=== PATIENT | male | born 1965 | race Caucasian/White ===

== ENCOUNTER 2024-09-17 14:59 | Inpatient (IN) | payer MEDICARE, SELFPAY ==
[2024-09-17] VITALS (31 sets, daily range): BP systolic 87–126; BP diastolic 51–82; PULSE 114–131; RESP 20–39; TEMP 36.6–37.1; O2SAT 95–100
--- NOTE | ~2024-09-17 | XR_ITS ---
XR chest port-a-cath/central Ordering provider: Jass Mercedes MD History: 59 years Male with . CENTRAL LINE PLACEMENT . Comparison: September 17, 2024 at 3:37 PM. FINDINGS/impression: Left Central line is seen with the tip overlying the superior vena cava. Other appearances are unchan ged. Reviewed, dictated and finalized at location A.
--- NOTE | ~2024-09-17 | CT_ITS ---
CTA chest PE abdomen pel Ordering provider: Jass Mercedes MD History: . syncope, elevated trop, anemia . Comparison: None. Technique: CT angiogram chest was performed following timed intravenous injection of contrast. Thin s lice axial images and reformatted coronal images were obtained. Three dimensional reformatted images of the chest were also obtained using a [email or web address] workstation. Also, CT of the abdomen and pelvis was pe rformed with IV contrast. . Automated exposure control and iterative reconstruction technique were e mployed. The dose-length product was 1735.41 mGy-cm. 100 and ML Omnipaque 350 was given IV. FINDINGS: CHEST: --PULMONARY ARTERIES: No pulmonary embolus. --VISUALIZED THORACIC INLET: Normal. --MEDIASTINUM: Aorta/coronary arteries: The thoracic aorta is normal. Heart/other: The heart is not enlarged. Lymph nodes: No mediastinal or hilar adenopathy. --LUNGS: Dependent atelectatic changes. No pulmonary nodules or masses. No infiltrates or effusions. No pneumothorax. --MUSCULOSKELETAL: Bones: Age appropriate degenerative changes of the spine. Superficial soft tissues: The superficial soft tissues are normal. ABDOMEN/PELVIS: --MUSCULOSKELETAL: Superficial soft tissues: Bilateral fat containing inguinal hernias. The superficial soft tissues are normal. Bones: Age appropriate degenerative changes of the spine. Bilateral sacroiliacs. Levoscoliosis. --UPPER ABDOMINAL ORGANS: Liver: Tiny hypodensity seen in the liver segment #6 most likely tiny cysts. Follow-up advised. Gallbladder: Normal. Spleen: Normal. Stomach/duodenum: Normal. Pancreas: Normal. Adrenals: Normal. Kidneys: Small hypodensity in the right kidney lower pole which may be a stone or early contrast excr etion. --PELVIC ORGANS: The bladder shows thickened wall with surrounding fat stranding. Evaluation for cyst itis advised.. No bladder stones. --BOWEL AND MESENTERY: Colon: No evidence of diverticulitis.. Normal appendix. Small Bowel: Normal. No obstruction. Peritoneum/mesentery: No free air or free fluid. No mesenteric lymphadenopathy. --RETROPERITONEUM: Mild atheromatous disease of the abdominal aorta. No retroperitoneal lymphadenop athy. IMPRESSION: CHEST: 1. No pulmonary embolism. 2. No acute cardiopulmonary pathology. ABDOMEN/PELVIS: 1. No evidence of appendicitis, diverticulitis or intestinal obstruction. 2. Possible right kidney lower pole a stone versus early contrast excretion. Follow-up advised. 3. Slightly thickened wall of the urinary bladder with surrounding fat stranding suggestive of cysti tis. 4. Tiny hypodensity in the liver most likely tiny cysts. 5. Bilateral fat containing inguinal hernias. Reviewed, dictated and finalized at location A. IMPRESSION: CHEST: 1. No pulmonary embolism. 2. No acute cardiopulmonary pathology. ABDOMEN/PELVIS: 1. No evidence of appendicitis, diverticulitis or intestinal obstruction. 2. Possible right kidney lower pole a stone versus early contrast excretion. F ollow-up advised. 3. Slightly thickened wall of the urinary bladder with surrounding fat strandi ng suggestive of cystitis. 4. Tiny hypodensity in the liver most likely tiny cysts. 5. Bilateral fat containing inguinal hernias.
--- NOTE | ~2024-09-17 | XR_ITS ---
XR chest 1V portable Ordering provider: Jass Mercedes MD History: 59 years Male with . SYNCOPE . Comparison: None. FINDINGS: MEDIASTINUM: The cardiac silhouette is slightly enlarged. LUNGS: No infiltrates, effusions or pneumothorax. OTHER: No free air under the diaphragm. IMPRESSION: No acute cardiopulmonary pathology. Reviewed, dictated and finalized at location A.
--- NOTE | ~2024-09-17 | CT_ITS ---
CT brain wo con Ordering provider: Jass Mercedes MD History: 59 years Male with . syncope . Comparison: None. Technique: CT of the head without contrast. Radiation reduction technique utilized.The dose-length pr oduct was 1059.33 mGy-cm. FINDINGS: BRAIN PARENCHYMA AND CSF SPACES: Mild leukoaraiosis and diffuse cortical atrophy. Mild atheromatous d isease. Dilated ventricles is noted.. Dilatation is not compatible with the brain atrophy. Normal pre ssure hydrocephalus should be considered. No midline shift, mass effect or hemorrhage. The brain par enchyma and CSF spaces are otherwise normal. VISUALIZED PARANASAL SINUSES: Well aerated. MASTOIDS: Well aerated. BONES: The bones appear intact. SOFT TISSUES: Visualized nasopharynx is normal. Superficial soft tissues are normal. IMPRESSION: No acute intracranial findings. Reviewed, dictated and finalized at location A.
--- NOTE | 2024-09-17 15:13 | ECG_ITS ---
Test Date: 2024-09-17 15:05:50 Measurements Intervals [place] Rate: 117 P: 59 CO: 148 QRS: -4 QRSD: 85 T: 20 QT: 349 QTc: 488 Interpretive Statements SINUS TACHYCARDIA WITH OCCASIONAL SUPRAVENTRICULAR PREMATURE COMPLEXES ST DEVIATION AND MODERATE T-WAVE ABNORMALITY, CONSIDER ANTEROLATERAL ISCHEMIA AND INFERIOR ISCHEMIA [-0.1+ mV T-WAVE IN V3-V6] ABNORMAL ECG No previous ECG available for comparison Electronically Signed On 09-18-2024 09:53:01 CDT by Migue Badillo M.D.
[2024-09-17 15:27] LABS: Basophils Percent Auto 0.8 % (0.2-1.2); Eosinophils Percent Auto 0.5 % (0-4.4); Hematocrit 23.6 % (42.0-52.0); Hemoglobin 7.4 g/dL (14.0-18.0); Immature Granulocyte Absolute 0.02 K/mm3 (0.00-0.031); Immature Granulocyte Percent A 0.5 % (0-0.5); Lymphocytes Absolute Auto 0.32 K/mm3 (0.9-3.2); Lymphocytes Percent Auto 8.4 % (18.3-44.2); Mean Corpuscular HGB Conc 31.4 g/dl (32-36); Mean Corpuscular Hemoglobin 28.2 pg (26-34); Mean Corpuscular Volume 90.1 fl (80-100); Mean Platelet Volume 8.9 fl (7.4-10.4); Monocytes Absolute Auto 0.1 K/mm3 (0.1-0.6); Monocytes Percent Auto 2.4 % (2.6-8.5); Neutrophils Absolute Auto 3.3 K/mm3 (1.3-6.7); Neutrophils Percent Auto 87.4 % (45.5-73.1); Platelet Count Result 414 k/mm3 (150-375); Red Blood Count 2.62 M/mm3 (4.6-6.20); White Blood Count 3.8 K/mm3 (4.5-10.0)
--- OUTSIDE RECORDS SUMMARY | 2024-09-17 15:29 | XMS_ITS | CONTINUITY OF CARE DOCUMENT ---
Author Name ludmila keys Address Unknown Organization [facility] Address [address] [place] [address] Phone [phone] Care Team Providers Care Perioperative Manager Name Role Phone Miki GALAN, Renay Unavailable [phone] THONY GALAN, DELLA Unavailable INSURANCE PROVIDERS Payer name Policy type / Coverage type [place] red republican ID [id number] [employer] Medicare [id number]
--- OUTSIDE RECORDS SUMMARY | 2024-09-17 15:29 | XMS_ITS | Data Portability ---
Author Organization [facility] Address [address] [place] [address] Assessment No assessment recorded. Plan of Treatment Reminders Order Date Submit Date Provider Last Modified By Organization Details Last Modified Time Details Appointments None recorded. Lab None recorded. Referral audiologis t referral - please call patient to schedule appt. thank you 2016 [email or web address], [address], 7 11:22:09 laryngolog y referral - Please call patient to schedule 2015 016 [email or web address] [facility] [address] [place] [address], [address], 7 09:13:30 Procedures None recorded. Surgeries None recorded. Imaging None recorded. Medication Orders amlodipine 10 mg tablet 2016 017 [facility] [id number], [address], 7 16:56:00 lisinopril 10 mg tablet 2016 017 [facility] [address], [address], 7 16:56:00 lisinopril 10 mg tablet 2016 017 [facility] [address], [address], 7 18:08:31 amlodipine 10 mg tablet 04/10/ 2017 04/10/2 017 [facility] [address] In [facility], [address] [place] [address], [address], 7 18:08:30 amlodipine 10 mg tablet 2015 016 [facility] [address], [address], 6 15:32:04 lisinopril 10 mg tablet 2015 016 [facility] [address], [address], 6 15:32:05 amlodipine 10 mg tablet 2015 016 [facility] [address] In [facility], [address] [place] [address], [address], 6 14:59:37 lisinopril 10 mg tablet 2015 016 [facility] [address], [address], 6 14:59:38 Patient TargetsNo targets recorded. Patient Instructions Encounter Date Encounter Id Patient Instructions Last Modified By Organization Details Last Modified Time 09/29/2015 [id number] hearing loss: care instructions ya Not available 09/29/2015 15:39:31 He will have regular F/U visit with neurologist for hia MS. sieh Not available 09/29/2015 14:59:08 03/29/2016 [id number] hearing loss: care instructions [email or web address] Not available 04/25/2016 12:53:32 09/30/2016 [id number] hearing loss: care instructions sieh Not available 09/30/2016 18:08:34 02/27/2017 [id number] learning about high blood pressure [email or web address] Not available 02/28/2017 10:09:04 05/27/2017 [id number] hearing loss: care instructions [email or web address] Not available 05/27/2017 17:34:24 Reason for Referral Laryngology Referral for Exa cerbation of multiple sclerosis Please call patient to schedule Referring Physician: Kenia Jara, Internal Medicine, Encounter Date: 09/29/2015 Sales Lead Referral for Hea ring disorder please call patient to schedule appt. thank you Referring Physician: Kenia Jara, Internal Medicine, Encounter Date: 02/27/2017 Problems Name Problem SNOMED Code Status Onset Date Resolution Date Notes Provider Name and Address Organization Details Recorded Time Hyperten sive disorder 49216918 Active Kenia Jara MD Attn: Accountin g,[address] [facility], [place], [address], [place] [facility] 6 15:31:58 Exacerba tion of multiple sclerosi s 362357267 Completed 09/30/2016 Removal Reason: Missed diagnosis in the past. Kenia Jara MD Attn: Accountin g,[address] [facility], [place], [address], [place] [facility] 7 18:06:16 Hearing loss 37385747 Active Kenia Jara MD Attn: Accountin g,[address] [facility], [place], [address], [place] [facility] 6 15:31:58 Hydrocep halus 231141283 Active Kenia Jara MD Attn: Accountin g,[address] [facility], [place], [address], [place] [facility] 6 15:31:58 Problem Notes None recorded. Medical Equipment None Reported. Allergies Allergen ID Allergen Name Allergen Category Reaction Reaction Severity Criticality Documentation Date Start Date Code Code System Note Provider Name and Address Organization Details Recorded Time 74375 zinc environme nt,medica tion Not available Not available Not available 09/29/2015 85322 RxNorm Not Available Not Available Not Available Medications Name Sig Start Date Stop Date Status Note LastModified by Organization Details LastModified Time neomycin-po lymyxin-hyd rocort 3.5 mg/mL-10,00 0 unit/mL-1 % ear solution 05/27 completed Not Available Not Available Not Available amlodipine 10 mg tablet TAKE ONE TABLET BY MOUTH ONCE DAILY active Not Available Not Available No t Available cephalexin 500 mg capsule 09/30 completed Not Available Not Available Not Available lisinopril 10 mg tablet TAKE ONE TABLET BY MOUTH ONCE DAILY DIRECTED active Not Available Not Available No t Available neomycin-po lymyxin-hyd rocort 3.5 mg-10,000 unit/mL-1 % ear drops,susp 05/27 completed Not Available Not Available Not Available Vitals Date Recorded Body height Body mass index (BMI) Body weight Body temperature Oxygen saturation Oxygen saturation in Arterial blood by Pulse oximetry Heart rate Systolic blood pressure Diastolic blood pressure Provider Name and Address Organization Details Last Updated DateTime 7 170.18 cm 42.9 kg/m2 857996. 31 g 97.7 [degF] 98 % 98 % 98 /min 114 mm[Hg] 70 mm[Hg] Curt Chavarria MA [facility] 7 16:29:45 Date Recorded Body temperature Body height Body weight Respiratory rate Heart rate Body mass index (BMI) Systolic blood pressure Diastolic blood pressure Provider Name and Address Organization Details Last Updated DateTime 6 98.7 [degF] 170.18 cm 727200. 15543 g 22 /min 90 /min 40.3 kg/m2 110 mm[Hg] 74 mm[Hg] September Niki [facility] 6 14:28:19 Date Recorded Body mass index (BMI) Body weight Oxygen saturation Oxygen saturation in Arterial blood by Pulse oximetry Body temperature Heart rate Body height Systolic blood pressure Diastolic blood pressure Provider Name and Address Organization Details Last Updated DateTime 6 42.9 kg/m2 125750. 850817 g 99 % 99 % 98.1 [degF] 107 /min 170.18 cm 114 mm[Hg] 82 mm[Hg] Curt Chavarria MA [facility] 6 15:12:01 Date Recorded Body height Body weight Body mass index (BMI) Body temperature Oxygen saturation Oxygen saturation in Arterial blood by Pulse oximetry Heart rate Systolic blood pressure Diastolic blood pressure Provider Name and Address Organization Details Last Updated DateTime 7 170.18 cm 532340. 68 g 43.5 kg/m2 97.8 [degF] 99 % 99 % 91 /min 114 mm[Hg] 72 mm[Hg] Curt Chavarria MA [facility] 7 17:56:58 Date Recorded Body height Body mass index (BMI) Body weight Heart rate Body temperature Oxygen saturation Oxygen saturation in Arterial blood by Pulse oximetry Systolic blood pressure Diastolic blood pressure Provider Name and Address Organization Details Last Updated DateTime 7 170.18 cm 42.3 kg/m2 822855. 94 g 88 /min 97.7 [degF] 100 % 100 % 116 mm[Hg] 70 mm[Hg] Felipa Ugalde YONI [facility] 7 15:16:37 Social History Question Answer Notes LastModified by Organizat ion Details LastModified Time Tobacco Smoking Status Former Smoker September NikiYONI, [facility] 09/29/2015 14:28:18 What Is Your Level Of Alcohol Consumption? None Information not available 09/29/2015 What Is Your Level Of Caffeine Consumption? None Information not available 09/29/2015 How Much Tobacco Do You Chew? None Information not available 09/29/2015 What Was The Date Of Your Most Recent Tobacco Screening? 02/27/2017 Information n ot available 01/14/2019 How Much Tobacco Do You Smoke? No Information not available 09/29/2015 Sex: Unknown Functional Status None recorded. Mental Status None recorded. Family History Relationship Description Onset Age of this Age Resolved Age Notes LastModified by Organization Details LastModified Time Mother Transplantat ion of liver asavala Not available 01/2016 14:28:19 Medical History Condition Response Coronary Artery Disease N Other N Atrial Fibrillation N High Blood Pressure N Kidney or Bladder Problems N Thyroid Problems N GI Problems N Depression N COPD N Blood Clots N Skin Problems N Anemia N Heart Attack (ND) N Anxiety Disorder N Diabetes N Muscle, Joint, or Bone Problems N Seizures/Epilepsy N Acid Reflux (GERD) N Cancer N Stroke N Asthma N Allergies N High Cholesterol N Hepatitis N Liver Disease N Headaches N Heart Failure N Osteoporosis N Immunizations Vaccine Type Date Status Note Provider Nam e and Address Organization Details Recorded Time Influenza, split virus, quadrivalent, preservative 7 completed Not Available [facility] 07/10/2019 02:33:58 Past Encounters Encounter ID Performer Location Encounter Start Date Encounter Closed Date Diagnosis/Indication Diagnosis SNOMED-CT Code Diagnosis ICD10 Code Diagnosis Note [id number] MD Solo Valiente (Adult Med) [address] [place] [address] 0 09/29/2015 14:05:00 09/29/2015 14:53:38 Hypertensive disorder 52726246 I10 Exacerbati on of multiple sclerosis 525817303 G35 Hearing loss 98175700 H9 1.93 [id number] Pao Garduno Solo (Adult Med) [address] [place] [address] 0 03/29/2016 14:57:21 03/29/2016 15:34:05 Hearing loss 84480422 H91.93 Hypertensive disorder 38 458946 I10 Hydrocephalus 225700081 G91.9 [id number] MD Solo Valiente (Adult Med) [address] [place] [address] 0 09/30/2016 16:10:41 10/01/2016 10:49:35 Hydrocephalus 131615367 G91.9 Stable. Hypertensive disorder 38 808657 I10 Low salt diet. Hearing loss 14857754 H9 1.93 Right ear hearing loss, stable, no need for hearing aid as he was told in the past. [id number] MD Solo Valiente (Adult Med) [address] [place] [address] 0 02/27/2017 15:00:27 02/27/2017 15:47:36 Essential hypertension 44589923 I10 Well controlled , to continue same medication s: amlodipine 10 mg/day and lisinopril 10 mg. Will get flu shot today. Lo salt diet. Hearing disorder 8067298 05 H91.91 Especially on the right side. He was born prematuall y. He had seen ENT Dr. Elam, but no heaing aids, he wants second opinion. [id number] MD Solo Valiente (Adult Med) [address] [place] [phone] 05/27/2017 16:09:56 05/27/2017 16:59:04 Hearing loss 55330126 H91.93 Right ear hearing loss, stable, no need for hearing aid as he was told in the past. Hydrocephalus 778892938 G91.9 Stable. Has been evaluated bt neurologis t/neurosur jelly, and was told no interventi on will benift hin and no difference in out outcome as hr understood . Hypertensive disorder 38 698512 I10 Low salt diet. Health Concerns Section Related Observation LastModified by Organization Detai ls LastModified Time None Recorded Concern Status LastModified by Organization Details LastModified Time None Recorded Advance Directives Directive None Recorded Payers Encounter Date Sequence Insurance Name Policy Number Policy Ward Covered Member ID Ward Member ID Guarantor Name 09/29/2015 1 [facility] (MEDICAID HM) [id number] [facility] [id number] [facility] 03/29/2016 1 [facility] (MEDICAID HMO) [id number] [place] [id number] [place] 09/30/2016 1 [facility] (MEDICAID HMO) [id number] [place] [id number] [place] 02/27/2017 1 [facility] (MEDICAID HMO) [id number] [place] [id number] [place] 05/27/2017 1 [facility] (MEDICAID HMO) [id number] [place] [id number] [place] Notes Date Note Type Note Provider Name and Address Organization Details Recorded Time 09/29/2015 text/html 1. First encount er. 2. hypertension. 3. Recurrent MS. Mother is here, had been treated at [facility], also has been evaluted byneurologist Dr. Oscar Mcghee recently.. Kenia Jara MD Attn: [address] [place], [address], [facility] 09/29/2015 14:59:35 03/29/2016 text/html 1. F/U visit. 2. RIGHT EAR HEARING LOSS, HAD SEEN ENT SPECIALIST DR. PHILLIPS BUT NOT WORTHY TO PROSUE THE HEARING AID. 3. HROCEPHALUS, BUT NO OBVIOUS BENEFIT FOR SHUNT ACCORDING TO THE NEUROSURGEON'S ADVICES. 3. BP F/U. HE GOT HIS ANNUL FLU SHOT AT HOSPITAL RECENTLY. ALLERGIC TO ZINC. NOSPECIAL COMPLAINTS OTHERWISW. Kenia Jara MD Attn: [address]ing[address] [place], [address], [facility] 03/29/2016 15:32:00 02/27/2017 text/html BP ia well controlled, has enough medications , allergic to Zinc, not a smoker, nor a alcohol drinker. Kenia Jara MD Attn: Accounting[address] [facility], [place], [address], [facility] 02/27/2017 15:38:11 05/27/2017 text/html F/U , just got refills of medications., allergic to Zinc, no special complaints. Kenia Jara MD Attn: [address]ing[address] [facility], [place], [address], [facility] 05/27/2017 16:56:03
[2024-09-17 15:38] LABS: Alanine Aminotransferase 24 U/L (6-50); Albumin Level 3.4 g/dL (3.5-5.1); Alkaline Phosphatase 95 U/L (38-126); Anion Gap 15 mmol/L (4-12); Aspartate Amino Transferase 50 U/L (17-59); Bilirubin,Total 2.9 mg/dL (0.2-1.3); Blood Urea Nitrogen 22 mg/dL (9-20); Calcium 7.9 mg/dL (8.4-10.2); Carbon Dioxide 18 mmol/L (22-30); Chloride 97 mmol/L (98-107); Estimated CRCL calculation 80 ml/min; Estimated Glomerular Filt Rate > 60; Glucose 149 mg/dL (65-110); Lipase 101 U/L (23-300); Potassium 3.7 mmol/L (3.4-5.0); Sodium 130 mmol/L (137-145)
[2024-09-17 15:39] LABS: INR 1.5; Prothrombin Time 18.5 Seconds (11.1-14.7)
[2024-09-17 15:40] LABS: Partial Thromboplastin Time 36.8 Seconds (22.3-36.8)
[2024-09-17 15:55] LABS: Troponin I 0.175 ng/mL (0.000-0.034)
--- NOTE | 2024-09-17 16:08 | ED_ITS ---
HPI - Syncope General Chief Complaint: Syncope Stated Complaint: syncope Time Seen by Provider: 09/17/24 15:07 History of Present Illness HPI narrative: 59-year-old male presenting from [facility] where he resides for chronic debility. He has a history of ulcerative colitis on mesalamine and hydrocephalus. Patient presents the emergency department today after a syncopal event at the facility during rehab session. No fall or head trauma is noted. Low blood pressure readings reported by [facility] staff as well as cold clammy skin and diaphoresis. Patient presents to the emergency department currently awake alert oriented, states the has no complaints denies any headache, vision changes, jaw pain or back pain. No chest pain or shortness of breath. He states he can walk at baseline which is why his at that facility. Denies taking any blood thinners and does not have any EMR that shows any blood thinners. No evidence of trauma. No cardiac history to his knowledge. Patient is a difficult historian which limits history taking. Related Data Allergies Allergy/AdvReac Type Severity Reaction Status Date / Time zinc Allergy Unknown UNKNOWN Verified 10/12/15 13:42 Review of Systems 2 Review of Systems: As reviewed above in HPI Exam 2 Narrative: GENERAL: Chronically ill-appearing, disheveled, not any acute distress HEAD: [Normocephalic, atraumatic.] EYES: [PERRLA and EOMI.] ENT: Nares clear, no rhinorrhea or epistaxis. Mucous membranes moist. NECK: Supple. CHEST: Some tachypnea but clear breath sounds bilaterally, no respiratory distress otherwise HEART: Tachycardic rate, regular rhythm. No murmur heard. [Normal peripheral pulses.] ABDOMEN: [Soft, nondistended], [nontender], [No rigidity or guarding] EXTREMITIES: Normal range of motion. [No edema.] SKIN: Warm, dry, no rash. NEURO: [No focal deficits]. Alert and oriented [x3.] PSYCH: [Normal mood and affect.] Course Vital Signs Vital signs: Vital Signs Temperature 36.6 C 09/17/24 14:59 Pulse Rate 114 H 09/17/24 14:59 Respiratory Rate 28 H 09/17/24 14:59 Blood Pressure 126/66 09/17/24 14:59 Pulse Oximetry 100 09/17/24 14:59 Oxygen Delivery Room Air 09/17/24 14:59 Temperature 36.6 C 09/17/24 14:59 Pulse Rate 126 H 09/17/24 18:30 Respiratory Rate 26 H 09/17/24 18:30 Blood Pressure 123/64 09/17/24 18:30 Pulse Oximetry 100 09/17/24 18:30 Oxygen Delivery Room Air 09/17/24 14:59 MDM - Syncope MDM Narrative Medical decision making narrative: 59-year-old male from a local nursing facility with history of debility and ulcers colitis, hydrocephalus. He presents to the emergency department after a witnessed syncopal event while doing rehab. He presented to staff as hypotensive, pale clammy and diaphoretic. Here he is normotensive but is tachycardic and slightly tachypneic. He denies any acute complaints such as chest pain, shortness a breath, abdominal pain, back pain. Denies any fever chills or recent injuries or illnesses. He does look chronically ill and disheveled but does not appear in significant distress. Patient is a poor historian at baseline, collateral formation reviewed per [facility] documentation. Broad workup was ordered to rule out cardiac etiology of his syncope, ACS, orthostasis, dehydration, vasovagal syncope versus intracranial process such as a bleed or stroke less likely given his normal mental status and unremarkable neuro exam. His initial triage EKG is concerning and does show global ST segment depressions but no ST segment elevations. Initial troponin is elevated. CT angiography of the chest and CT contrast of the abdomen pelvis ordered for further delineation in addition to laboratory studies, EKG, chest x- ray, serial troponin, urinalysis, blood cultures and lactic acid. Records from [facility] states that he was discharged from [facility] last week, attempting to reach out to their facility for records. Consent obtained by patient for record release. Patient's laboratory studies show significant concerns including hemoglobin of 7 point forward no baseline, white count of 3.8 with no baseline, normal platelets. Initial troponin is largely elevated at 0.175 and lactic acid of 4.8. Creatinine is normal, elevated anion gap with acidosis consistent with lactic acidosis. Signs of dehydration with low sodium and chloride. Elevated bilirubin, otherwise normal LFTs. Negative lipase. 3 hour troponin downtrending at 0.128 but 3 hour EKG looks worse with deepening ST segment depressions and AVR elevation noted. I called and spoke to the director education Dr. Vasques who recommended heparin if patient is worsening but believes that there could be another underlying process is demand ischemia rather than coronary disease causing this as he has no history of it and otherwise does match septic picture with his florid urinary tract infection, transient hypotension and tachycardia with lactic acidosis. I did re-evaluated the patient multiple times and he again denies any chest pain or chest pressure, no back pain or abdominal pain. He was already placed on empiric antibiotics, blood cultures and urine cultures are pending. Patient was given a 30 cc/kg bolus in total, pulse remains elevated in the 120s. CT angiography shows no pulmonary embolism, no acute occlusive/aortic process., no acute cardiopulmonary process. No evidence of appendicitis, diverticulitis or obstruction. Possible right kidney lower pole stone verses normal contrast excretion, cystitis is seen, inguinal hernias appreciated. Still attempting to reach [facility] for records and potential transfer if this is related to recent discharge, otherwise patient needs admission here. Heparin and antibiotics going at this time. Was able to get records from patient's admission over at [facility] [place]. He was there after his family had left him home alone and moved houses and he was found on the ground covered in feces and stool, not able to care for himself. During his stay at [facility] he was found to be hyponatremic, had elevated lactate and elevated troponins. He was cleared by Cardiology after stress test and echocardiogram that showed normal ejection fraction with some moderate regurgitation of the aortic valve. Patient was treated with fluid resuscitation, was not septic at that time. Discharged to [facility]. Relayed this updated information to the hospitalist team and we discussed patient's imaging findings, clinical exam, elevated troponin, elevated lactic acid, heparin drip and antibiotics presently with suspected urinary tract infection and potential Gram-negative septicemia causing his worsening lactic acidosis. Patient did receive a total of 3 L of fluid resuscitation, blood pressures are now soft at 93/51. Central access will be obtained in the event the patient needs vasoactive medications. Patient re-evaluated once again in doing significantly improved after the fluids. Pressure is 123/64, heart rate in the 120s. 98% room air. He is safe and stable for admission to the IMU unit at this time and does have central access in case he needs vasoactive medications or upgrade to the ICU during his hospital stay. Chest x-ray independently reviewed and shows appropriate position of the left subclavian catheter, no complication. Hospitalist in agreement with this plan. Medical Records Attestation: I reviewed the patient's medical records. Lab Data Attestation: I reviewed the patient's lab results. 09/17/24 15:22 09/17/24 15:22 Labs: Lab Results 09/17/24 09/17/24 09/17/24 Range/Units 15:22 16:25 18:10 WBC 3.8 L (4.5-10.0) K/mm3 RBC 2.62 L (4.6-6.20) M/mm3 Hgb 7.4 L (14.0-18.0) g/dL Hct 23.6 L (42.0-52.0) % MCV 90.1 (80-100) fl MCH 28.2 (26-34) pg MCHC 31.4 L (32-36) g/dl RDW 17.0 H (11.5-14.5) % Plt Count 414 H (150-375) k/mm3 MPV 8.9 (7.4-10.4) fl Immature Gran % (Auto) 0.5 (0-0.5) % Neut % (Auto) 87.4 H (45.5-73.1) % Lymph % (Auto) 8.4 L (18.3-44.2) % Zavala % (Auto) 2.4 L (2.6-8.5) % Eos % (Auto) 0.5 (0-4.4) % Baso % (Auto) 0.8 (0.2-1.2) % Lymph # (Auto) 0.32 L (0.9-3.2) K/mm3 Zavala # (Auto) 0.1 (0.1-0.6) K/mm3 Eos # (Auto) 0.0 (0-0.3) K/mm3 Baso # (Auto) 0.0 (0.0-0.1) K/mm3 Abs Immat Gran (auto) 0.02 (0.00-0.031) K/mm3 Absolute Neuts (auto) 3.3 (1.3-6.7) K/mm3 Absolute Nucleated RBC 0.000 (0.0-0.012) K/mm3 Nucleated RBC % 0.0 (0.0-0.2) % PT 18.5 H (11.1-14.7) Seconds INR 1.5 APTT 36.8 (22.3-36.8) Seconds Sodium 130 L (137-145) mmol/L Potassium 3.7 (3.4-5.0) mmol/L Chloride 97 L (98-107) mmol/L Carbon Dioxide 18 L (22-30) mmol/L Anion Gap 15 H (4-12) mmol/L BUN 22 H (9-20) mg/dL Creatinine 1.05 (0.7-1.3) mg/dL Estim Creat Clear Calc 80 ml/min Estimated GFR > 60 (59 - ) Glucose 149 H (65-110) mg/dL Lactic Acid 4.8 H* (0.7-2.0) mmol/L Calcium 7.9 L (8.4-10.2) mg/dL Total Bilirubin 2.9 H (0.2-1.3) mg/dL AST 50 (17-59) U/L ALT 24 (6-50) U/L Alkaline Phosphatase 95 (38-126) U/L Troponin I 0.175 H* 0.128 H* D (0.000-0.034) ng/mL Total Protein 7.0 (6.3-8.2) g/dL Albumin 3.4 L (3.5-5.1) g/dL Lipase 101 (23-300) U/L Urine Color (Yellow) Urine Appearance (Clear) Urine pH (5.0-9.0) Ur Specific Burnham (1.001-1.035) Urine Protein (Negative) mg/dL Urine Glucose (UA) (Negative) mg/dL Urine Ketones (Negative) mg/dL Ur Blood (Man) (Negative) Urine Nitrate (Negative) Urine Bilirubin (Negative) Urine Urobilinogen (<2.0) mg/dL Leukocyte Esterase Rfl (Negative) TIFFANY/UL Urine RBC (0-2) /hpf Urine WBC (0-3) /hpf Urine Bacteria (None) /hpf Urine Mucus /lpf 09/17/24 09/17/24 Range/Units 18:29 18:50 WBC (4.5-10.0) K/mm3 RBC (4.6-6.20) M/mm3 Hgb (14.0-18.0) g/dL Hct (42.0-52.0) % MCV (80-100) fl MCH (26-34) pg MCHC (32-36) g/dl RDW (11.5-14.5) % Plt Count (150-375) k/mm3 MPV (7.4-10.4) fl Immature Gran % (Auto) (0-0.5) % Neut % (Auto) (45.5-73.1) % Lymph % (Auto) (18.3-44.2) % Zavala % (Auto) (2.6-8.5) % Eos % (Auto) (0-4.4) % Baso % (Auto) (0.2-1.2) % Lymph # (Auto) (0.9-3.2) K/mm3 Zavala # (Auto) (0.1-0.6) K/mm3 Eos # (Auto) (0-0.3) K/mm3 Baso # (Auto) (0.0-0.1) K/mm3 Abs Immat Gran (auto) (0.00-0.031) K/mm3 Absolute Neuts (auto) (1.3-6.7) K/mm3 Absolute Nucleated RBC (0.0-0.012) K/mm3 Nucleated RBC % (0.0-0.2) % PT (11.1-14.7) Seconds INR APTT (22.3-36.8) Seconds Sodium (137-145) mmol/L Potassium (3.4-5.0) mmol/L Chloride (98-107) mmol/L Carbon Dioxide (22-30) mmol/L Anion Gap (4-12) mmol/L BUN (9-20) mg/dL Creatinine (0.7-1.3) mg/dL Estim Creat Clear Calc ml/min Estimated GFR (59 - ) Glucose (65-110) mg/dL Lactic Acid 5.0 H* (0.7-2.0) mmol/L Calcium (8.4-10.2) mg/dL Total Bilirubin (0.2-1.3) mg/dL AST (17-59) U/L ALT (6-50) U/L Alkaline Phosphatase (38-126) U/L Troponin I (0.000-0.034) ng/mL Total Protein (6.3-8.2) g/dL Albumin (3.5-5.1) g/dL Lipase (23-300) U/L Urine Color Dark yellow (Yellow) Urine Appearance Turbid H (Clear) Urine pH 5.5 (5.0-9.0) Ur Specific Burnham 1.018 (1.001-1.035) Urine Protein 1+ H (Negative) mg/dL Urine Glucose (UA) Negative (Negative) mg/dL Urine Ketones Trace H (Negative) mg/dL Ur Blood (Man) 1+ H (Negative) Urine Nitrate Positive H (Negative) Urine Bilirubin 2+ H (Negative) Urine Urobilinogen 4.0 H (<2.0) mg/dL Leukocyte Esterase Rfl 3+ H (Negative) TIFFANY/UL Urine RBC 0-2 (0-2) /hpf Urine WBC 51-75 H (0-3) /hpf Urine Bacteria 4+ H (None) /hpf Urine Mucus Moderate H /lpf ECG Data EKG #1: Attestation: I personally reviewed and interpreted this ECG as follows: ECG completion date: 09/17/24 ECG completion time: 15:05 Prior ECG tracings: not available for review Interpretation: Sinus tachycardia. Rate of 117, regular rhythm, QTC 488, QRS 85. Global ST depressions without any ST segment elevations. No previous EKG for comparison. Final interpretation sinus tachycardia with global ST segment changes EKG #2: Attestation: I personally reviewed and interpreted this ECG as follows: ECG completion date: 09/17/24 ECG completion time: 18:35 Prior ECG tracings: available for review Interpretation: Deeper ST segment depressions globally with elevated AVR pattern consistent with global demand ischemia, sinus tachycardia 129, QTC 346, QR interval 84, W[place] interval 162. Compared to prior EKG these are worsening ST segment changes. Heparin initiated. Cardiology consulted. Critical Care Time Critical Care Time Critical Care Time: Yes Total Critical Care Time: 105 (Critical care time is exclusive of the separately billed procedures as above) Discharge Plan Discharge Clinical Impression: Severe sepsis, Urinary tract infection, Non-STEMI (non-ST elevated myocardial infarction), Demand ischemia, Anemia, Syncope Patient Disposition: Still a Patient Condition: Stable Patient Language: Portuguese Follow-up/Referrals: UNKNOWN,DOCTOR [Primary Care Provider] - Time of Disposition: 21:44
[2024-09-17] MEDS: LACTATED RINGERS 1,000 ML 999 ML IV CONT ×4 (16:28→20:32)
[2024-09-17 16:49] LABS: Lactic Acid Reflex 4.8 mmol/L (0.7-2.0)
--- NOTE | 2024-09-17 18:10 | ECG_ITS ---
Test Date: 2024-09-17 18:35:27 Measurements Intervals Frost Rate: 129 P: 84 NH: 162 QRS: -16 QRSD: 84 T: -35 QT: 236 QTc: 346 Interpretive Statements SINUS TACHYCARDIA inferior and anterolateral ST and T-wave abnormality, consider ischemia nondiagnostic ST elevation in AVR. Consider acute GA abnormal ECG Electronically Signed On 09-18-2024 09:59:38 CDT by Migue Badillo M.D.
[2024-09-17] MEDS: CEFEPIME 2 GM/NS 50 ML 2 GM/50 ML BAG IVPB (18:11)
[2024-09-17 18:27] LABS: Reflex Lactic Acid Yes or No Add Lactic
[2024-09-17 18:37] LABS: Add Urine Microscopic? YES; Appearance Urine Turbid (Clear); Bilirubin Urine 2+ (Negative); Blood Urine 1+ (Negative); Color Urine Dark Yellow (Yellow); Glucose Urine UA Negative (Negative); Ketones Urine Trace mg/dL (Negative); Leukocyte Esterase Ur 3+ LEU/UL (Negative); Nitrate Urine Positive (Negative); Protein Urine 1+ mg/dL (Negative); Specific Grav Ur 1.018 (1.001-1.035); pH Urine 5.5 (5.0-9.0)
[2024-09-17 18:38] LABS: Troponin I 0.128 ng/mL (0.000-0.034)
[2024-09-17 18:52] LABS: Bacteria Urine 4+ /hpf; Mucus Urine Moderate /lpf; RBC Urine 0-2 /hpf (0-2); WBC Urine 51-75 /hpf (0-3)
[2024-09-17] MEDS: VANCOMYCIN 1,250 MG/NS 250 ML 1,250 MG/250 ML BAG 166.67 MG IVPB ×2 (19:18→20:52)
--- NOTE | 2024-09-17 19:35 | PC.NURSE ---
SUSHILA Mack 1L LR on top of already ordered fluids.
--- NOTE | 2024-09-17 19:53 | PC.NURSE ---
Per [facility] Pt was admitted from 09/03 to 09/14 for generalized weakness, amh, dehydration, nstemi, hyponatremia. Pt was on a heparin gtt, had a colonoscopy, stress test (negative), EF 64% with regurgitation. Labs at d/c were stabilized. C-Diff negative, H-Pylori negative. Cardiology signed off on pt. Gi signed off with recommendation of canasa suppository x 1 week. ER Report - pt found on ground with unknown down time (a minimum of 2 days since the family had spoke with the patient). Pt presented with stool, urine, and food covering his body and bruising noted to bilateral legs and left arm/ribs. 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
--- NOTE | 2024-09-17 20:01 | PC.NURSE ---
ENZO Babb @ [facility], [facility]–1983 to send all of the patients paperwork
--- NOTE | 2024-09-17 20:08 | PC.NURSE ---
Verbal consent obtained by edp dr crawford to place central line. Central Line placed. xray notified and xray obtained. OK to use central line per [facility] M[facility]. OK to place pugh for strict I+O.
[2024-09-17] MEDS: HEPARIN SODIUM 5,000 UNITS/ML VIAL 4000 UNITS IV PUSH (20:33)
[2024-09-17] MEDS: HEPARIN SOD/D5W 100 UNITS/ML 25,000 UNITS/250 ML BAG 10 UNITS IV CONT (20:34)
[2024-09-17] MEDS: LIDOCAINE 2% GEL UROJET 10 ML PKG (20:52)
--- NOTE | 2024-09-17 22:36 | P.HP_ITS ---
H&P: HPI History of Present Illness Date/Time: 09/17/24 22:36 Chief Complaint: Passed out during therapy Narrative: 59-year-old male with past medical history intellectual disability, hydrocephalus, obesity, and recent hospitalization at [facility] 09/03/2024 through 09/14/2024 for dehydration, suspected GI bleed with symptomatic anemia, following a fall at home with 2 days on the floor who presented to the ER from [facility] and rehab due to syncopal event during physical therapy. The patient is a extremely poor historian and thus majority of information was obtained from care home records and records from [facility]. The patient reports to me that he has been having a cough that is nonproductive and that he has been too weak to stand up. He tells me that that is why he is at the care home. However he could not tell me why she came into the ER he thought he was sent in because he could not stand up. Evidently during physical therapy the patient had a syncopal event and was diaphoretic. Evidently during the event patient had significant hypotension with blood pressures in the 70s over 30s according to EMS report. The patient's heart rates were also in the 130s. EKG demonstrated normal sinus rhythm. The patient denied any chest pain or acute injuries. In the ER his hemoglobin was noted to be 7.4. Initially is history from outside facility was not known which indicated recent GI blood loss Patient was unable to tell me if he had been having any black or bloody stools. He reports that he cannot swallow pills. He has terrible dentition with multiple teeth broken off at the gums. He has severe halitosis. He is extremely hard of hearing. In the ER patient was noted that elevated troponin. The patient was empirically started on heparin drip. On arrival to the ER the patient was noted to be tachycardic and tachypneic. EKG demonstrated nonspecific ST and T-wave abnormalities. He did receive a little over 30 mL/kilos bolus with a total of 4 L of isotonic fluids. Patient was noted to have a nonproductive cough. He also had leukopenia which was new compared to labs from the outside facility. According to the records from [facility] the patient had been taken there after the family had not heard from him in 2 days. He had evidently laid on the floor for 2 days when his aunt called because she had not heard from him. He was found covered in feces stool in food. Patient was in bed with elevated troponins and treated for dehydration. His troponins did trend down during hospital stay. He had an echocardiogram that demonstrated a normal ejection fraction. He was evidently started on anticoagulation. According to records from [facility] the patient's hemoglobin on admission there on the was 11 and trended down to 6.5 on the . It looks like he likely received a unit of blood transfusion and his hemoglobin trended up to 8.3. He underwent EGD and colonoscopy sometime during his hospital stay and EGD demonstrated moderate to severe reflux esophagitis and colonoscopy demonstrated moderate colitis and proctitis. He was started on mesalamine for possible ulcerative colitis. He also had a CT while there that demonstrated splenomegaly, hepatic steatosis and prostate enlargement. He had iron studies performed which demonstrated a low TIBC 204, low% saturation at 15 and iron level that was low at 31. I did not find ferritin recorded. He had an A1c obtained on the that was 5.7%. He had a CTA of the chest performed due to an elevated D-dimer which is negative for pulmonary embolism in without evidence of cardiomegaly. He had an initial non contrast CT of the abdomen and pelvis on the . He had a repeat CT of the abdomen with contrast that demonstrated colitis in the above mentioned findings. Performed on the He had a CT of the head that demonstrated chronic microvascular changes and hydrocephalus concerning for possible normal-pressure hydrocephalus. And also demonstrated in subtle finding of either cerumen but impaction or mass in the left ear canal. At the time of my evaluation the patient was extremely hard of hearing. He stated that he has to wear hearing aids. On evaluation he did have some cerumen in the left ear that was soft and easily removed. He did have an irregularity of the left ear canal with macerated appearing white mass to the anterior aspect of the left ear canal. Initial sodiums at the outside hospital were normal at 138 sodiums on the day of discharge were 129. The patient was discharged on sodium chloride tablets. And a cholesterol panel obtained at the outside facility with demonstrated total cholesterol 160 triglycerides at high at 170 HDL that was low at 22 and LDL developed 104. He had a C diff obtained on the 14 of September that was negative. He had viral panels prior to transfer Initially of patient's troponin had trended downward. However, on the troponin patient's troponin had jumped upward significantly. And H&H was ordered after the patient had arrived to the IMU which demonstrated a 2 g drop in hemoglobin. Heparin drip was discontinued and blood transfusion was ordered. Patient is still denied any chest pain on re-evaluation. Given the patient's cough noted in the ER viral PCR was obtained which positive for COVID. Review of Systems 2 Review of Systems: The patient is a poor historian due to intellectual disability and hearing loss. He patient denies pain. He denies shortness of breast despite being obviously tachypneic in the ER. [facility] Past Medical History Medical History (Updated 09/18/24 @ 04:40 by Joselin Bernardo DO) Ulcerative colitis GERD with esophagitis Chronic anemia Intellectual disability Surgical History Surgical History (Updated 09/18/24 @ 04:27 by Joselin Bernardo DO) History of colonoscopy (08/2024) History of esophagogastroduodenoscopy (EGD) (08/2024) Family History Family History Grandparent Cancer Mother Cirrhosis of liver Unknown Diabetes mellitus Social History Social History (Updated 09/18/24 @ 04:35 by Joselin Bernardo DO) Social History: Until September 03 2024 the patient lived in his own residence. He is single and does not have children. He stated that his aunt and uncle had lives with him prior but his uncle in his aunt had orthopedic surgery and had to move. Patient states he has had ambulate with a walker for the last year (presume since 2023). Code status: DNR/DNI (per care home paperwork) Surrogate decision maker: Gianna Peters (aunt) Smoking status: Never smoker Alcohol intake: former Substance use: former Substance use type: marijuana Do You Feel Safe in your Home?: Yes Lack of Transportation: No Lack of Food: Never True Current Housing: I Have Housing Concerned About Future Housing: No Difficulty Paying Gas/Electric Bills: No Difficulty Paying for Meds: No Currently Unemployed: No Education: High School Diploma/GED Difficulty w/ Childcare or Family Care: No Spiritual care concerns: No Meds Home Medications and Allergies Home Medications ?Medication ?Instructions ?Recorded ?Confirmed ?Type acetaminophen 650 mg 650 mg PO Q4H PRN pain 03/29/25 03/29/25 History tablet,extended release mesalamine 1,000 mg rectal 1 g RECTAL HS 09/18/24 09/18/24 History suppository pantoprazole 40 mg tablet,delayed 40 mg PO BID 09/18/24 09/18/24 History release (Protonix) sodium chloride 1,000 mg soluble 1,000 mg PO BID 09/18/24 09/18/24 History tablet Allergies Allergy/AdvReac Type Severity Reaction Status Date / Time zinc Allergy Unknown UNKNOWN Verified 10/12/15 13:42 Vital Signs Vital Signs - 24 hr 09/17/24 14:59 09/17/24 15:30 09/17/24 16:00 Temperature 97.9 F Pulse Rate 114 H 122 H 125 H Respiratory Rate 28 H 26 H 26 H Blood Pressure 126/66 99/68 L 112/61 Pulse Oximetry 100 100 100 Oxygen Delivery Room Air 09/17/24 16:30 09/17/24 17:00 09/17/24 17:30 Temperature Pulse Rate 130 H 130 H 130 H Respiratory Rate 26 H 26 H 22 H Blood Pressure 116/64 122/82 122/80 Pulse Oximetry 100 100 100 Oxygen Delivery 09/17/24 18:00 09/17/24 18:30 09/17/24 21:41 Temperature Pulse Rate 127 H 126 H 123 H Respiratory Rate 28 H 26 H 35 H Blood Pressure 112/65 123/64 118/71 Pulse Oximetry 100 100 97 Oxygen Delivery Exam 2 Narrative: Weight 106.2 kg BMI 36.7 Const: Other: Obese, disheveled, poor hygiene, strong body odor, appears older than stated age, acutely ill-appearing HENMT: Other: Poor dentition with multiple teeth broken off at the gumline, some small amount of oozing blood from the gums surrounding broken dentition, halitosis, Head is normocephalic atraumatic, pupils are equal and reactive, mild scleral icterus, positive conjunctival pallor, patient had moderate cerumen in both ears but cerumen from the left ear was easily were removed but there is a mass in the left ear canal that appeared moist and almost macerated. The left ear canal had some cerumen that partially obscured further visualization tympanic membrane was difficult to assess Eyes: Other: Mild scleral icterus, positive conjunctival pallor, pupils are equal and reactive Neck: Other: No thyromegaly, no JVD Resp: Other: Decreased breath sounds in the right lung base, tachypnea, no accessory muscle use, frequent cough Cardio: Other: Sinus tachycardia, 2+ bilateral radial pedal pulses GI: Other: Soft, obese, nontender, normoactive bowel sounds : Other: Circumcised male with To catheter in place with small amount of dark yellow turbid urine Skin: Other: 3-4 second cap refill, no mottling, warm to touch, diaphoretic, patient has thick yellow overgrown toenails some of which are curling, he has 3rd and feet kill a material noted under his fingernails with chronic discoloration Neuro: Other: Alert oriented to person, fact that he is in a hospital, the month and the name of the current president. He thought the year was 2004. He has no localizing neurologic deficits noted but his speech is slow. 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, he can lift both legs from the stretcher in hold them against resistance Psych: Other: Confused, pleasant and cooperative, poor judgment and insight H&P: Results Labs Labs: Laboratory Tests 09/17/24 15:22 09/17/24 15:22 09/17/24 09/17/24 09/17/24 15:22 16:25 18:10 WBC 3.8 L RBC 2.62 L Hgb 7.4 L Hct 23.6 L MCV 90.1 MCH 28.2 MCHC 31.4 L RDW 17.0 H Plt Count 414 H MPV 8.9 Immature Gran % (Auto) 0.5 Neut % (Auto) 87.4 H Lymph % (Auto) 8.4 L Harney % (Auto) 2.4 L Eos % (Auto) 0.5 Baso % (Auto) 0.8 Lymph # (Auto) 0.32 L Harney # (Auto) 0.1 Eos # (Auto) 0.0 Baso # (Auto) 0.0 Abs Immat Gran (auto) 0.02 Absolute Neuts (auto) 3.3 Absolute Nucleated RBC 0.000 Nucleated RBC % 0.0 PT 18.5 H INR 1.5 APTT 36.8 Sodium 130 L Potassium 3.7 Chloride 97 L Carbon Dioxide 18 L Anion Gap 15 H BUN 22 H Creatinine 1.05 Estim Creat Clear Calc 80 Estimated GFR > 60 Glucose 149 H Lactic Acid 4.8 H* Calcium 7.9 L Total Bilirubin 2.9 H AST 50 ALT 24 Alkaline Phosphatase 95 Troponin I 0.175 H* 0.128 H* D Total Protein 7.0 Albumin 3.4 L Lipase 101 Urine Color Urine Appearance Urine pH Ur Specific Gilford Urine Protein Urine Glucose (UA) Urine Ketones Ur Blood (Man) Urine Nitrate Urine Bilirubin Urine Urobilinogen Leukocyte Esterase Rfl Urine RBC Urine WBC Urine Bacteria Urine Mucus 09/17/24 09/17/24 09/17/24 18:29 18:50 21:38 WBC RBC Hgb Hct MCV MCH MCHC RDW Plt Count MPV Immature Gran % (Auto) Neut % (Auto) Lymph % (Auto) Harney % (Auto) Eos % (Auto) Baso % (Auto) Lymph # (Auto) Harney # (Auto) Eos # (Auto) Baso # (Auto) Abs Immat Gran (auto) Absolute Neuts (auto) Absolute Nucleated RBC Nucleated RBC % PT INR APTT Sodium Potassium Chloride Carbon Dioxide Anion Gap BUN Creatinine Estim Creat Clear Calc Estimated GFR Glucose Lactic Acid 5.0 H* Calcium Total Bilirubin AST ALT Alkaline Phosphatase Troponin I 1.500 H* D Total Protein Albumin Lipase Urine Color Dark yellow Urine Appearance Turbid H Urine pH 5.5 Ur Specific Gilford 1.018 Urine Protein 1+ H Urine Glucose (UA) Negative Urine Ketones Trace H Ur Blood (Man) 1+ H Urine Nitrate Positive H Urine Bilirubin 2+ H Urine Urobilinogen 4.0 H Leukocyte Esterase Rfl 3+ H Urine RBC 0-2 Urine WBC 51-75 H Urine Bacteria 4+ H Urine Mucus Moderate H Impressions Chest X-Ray 09/17/24 16:08 IMPRESSION: No acute cardiopulmonary pathology. Head CT 09/17/24 17:39 IMPRESSION: No acute intracranial findings. Chest/Abdomen/Pelvis CTA 09/17/24 17:45 IMPRESSION: CHEST: 1. No pulmonary embolism. 2. No acute cardiopulmonary pathology. ABDOMEN/PELVIS: 1. No evidence of appendicitis, diverticulitis or intestinal obstruction. 2. Possible right kidney lower pole a stone versus early contrast excretion. Follow-up advised. 3. Slightly thickened wall of the urinary bladder with surrounding fat stranding suggestive of cystitis. 4. Tiny hypodensity in the liver most likely tiny cysts. 5. Bilateral fat containing inguinal hernias. EKG: Initial EKG demonstrated sinus tach with occasional supraventricular premature complexes with ST deviation and moderate T-wave abnormality consider anterior lateral ischemia with QTC of 488 repeat EKG Sinus tachycardia rate [address] and T-wave abnormalities QTC 346 All imaging and EKGs personally reviewed and interpreted. And unless stated otherwise agree with radiologic and cardiology interpretation. Assessment and Plan Assessment and plan (1) Severe sepsis: Code(s): A41.9 - Sepsis, unspecified organism; R65.20 - Severe sepsis without septic shock Status: Acute (2) Acute on chronic blood loss anemia: Code(s): D62 - Acute posthemorrhagic anemia Status: Acute (3) Urinary tract infection: Qualifiers: Urinary tract infection type: acute cystitis Hematuria presence: w ithout hematuria Qualified Code(s): N30.00 - Acute cystitis without hematuria Code(s): N39.0 - Urinary tract infection, site not specified Status: Acute (4) Demand ischemia: Code(s): I24.89 - Other forms of acute ischemic heart disease Status: Acute (5) Non-STEMI (non-ST elevated myocardial infarction): Code(s): I21.4 - Non-ST elevation (NSTEMI) myocardial infarction Status: Acute (6) Syncope: Qualifiers: Syncope type: unspecified Qualified Code(s): R55 - Syncope and collapse Code(s): R55 - Syncope and collapse Status: Acute (7) COVID-19: Code(s): U07.1 - COVID-19 Status: Acute (8) GERD with esophagitis: Qualifiers: Esophagitis bleeding: unspecified whether hemorrhage Qualified Code(s): K21.00 - Gastro-esophageal reflux disease with esophagitis, without bleeding Code(s): K21.00 - Gastro-esophageal reflux disease with esophagitis, without bleeding Status: Acute (9) Hyponatremia: Code(s): E87.1 - Hypo-osmolality and hyponatremia Status: Acute (10) Mass of left ear canal: Code(s): H93.8X2 - Other specified disorders of left ear Status: Acute (11) Lactic acidosis: Code(s): E87.20 - Acidosis, unspecified Status: Acute Plan Patient presented with hypotension, tachycardia in the setting of UTI and acute on chronic anemia. Patient had associated leukopenia, marked tachycardia and hypotension. The patient received greater than 30 mL/kilos fluid bolus in the ER and had a central line placed in the ER. However after 0.25 L of fluid resuscitation the patient's blood pressures stabilized. Blood cultures and urine cultures were obtained and are pending. Patient was started on empiric antibiotic therapy with cefepime and vancomycin. Given the patient's reported cough and leukopenia did check respiratory viral panel which was positive for COVID. The patient had previously been negative for COVID at [facility]. As the patient has multiple cor morbidities and is at risk for decompensation with COVID I did quite start the patient on Remdesivir although I think the majority of patient's severe sepsis at this point is due to UTI. A portion of his tachycardia is also likely due to acute on chronic anemia. The patient's hemoglobin drop with repeat evaluation although part of this is likely dilutional given 4 L fluid bolus. The patient had also been started on heparin drip due to elevated troponin. The patient's troponin had initially trended downward and then rebounded upward likely due to increased demand from acute on chronic anemia. Patient to initial EKG demonstrated ST and T-wave abnormalities consistent with ischemia anterior lateral. Repeat EKG was similar. However 30 EKG after arrival to the IMU improved significantly with only minimal ST depression. However heparin drip pad to be discontinued due to the patient's 2 g drop in hemoglobin. The patient did have recent EGD and colonoscopy outside facility demonstrating severe erosive esophagitis and colitis. I am assuming that the pathology came back consistent with ulcerative colitis given that the patient was started on mesalamine suppositories. With the worsening and the patient's hemoglobin troponin did become more elevated up to 11. Patient is still asymptomatic SARs chest pain despite elevated troponin. The patient did have marked lactic acidosis on presentation but this improved after his 4 L fluid bolus. Patient did have a negative nuclear medicine stress test at [facility] with an EF of 70% The patient's syncopal event at the care home was likely due to hypovolemia and or vasovagal in nature. Cardiac arrhythmia less likely. Patient has been placed on Protonix 40 mg IV q.12 hours. Will make NPO. Both cardiology and gastroenterology has been consulted. I am unsure if patient really would need repeat EGD or colonoscopy AV given recent procedures. Again likely contribute acute anemia to heparin drip and or continuing secondary losses. However will await further recommendations from GI. Will transfuse 2 units packed red blood cells. Patient has hyponatremia which I assume was thought to be due to SIADH as the patient was started on sodium chloride at the outside facility. Sodium appears stable compared to discharge value. Will repeat electrolyte panel in a.m.. Patient did have hypotension but this has resolved with volume resuscitation. Patient does have a left subclavian line that was placed in the ER if pressors are required. CT of the outside facility suggested possible mass of the like the external ear canal. The ear does have white macerated area of skin or material on the anterior wall of the canal. It is unclear if this is mass verses cerumen. Although I would was able to remove portion of cerumen anterior to this that was darker in coloration leading me to believe that this is likely mass like. Patient would benefit from outpatient follow-up with ENT. 110 minutes was spent in critical care activities. Due to a high probability of clinically significant, life threatening deterioration, the patient required my highest level of preparedness to intervene emergently and I personally spent this critical care time directly and personally managing the patient. This critical care time included obtaining a history; examining the patient; pulse oximetry; ordering and review of studies; arranging urgent treatment with development of a management plan; evaluation of patient's response to treatment; frequent reassessment; and discussions with other providers. It was exclusive of separately billable procedures and treating other patients and teaching time. Please see Assessment and Plan section and the rest of the note for further information on patient assessment and treatment. Quality VTE Prophylaxis VTE prophylaxis: mechanical ordered (SCDs) Hospitalist MIPS Advance Care Plan I have confirmed that the patient's Advanced Care Plan is present, code status is documented, or surrogate decision maker is listed in patient medical record.: Yes Medication Reconciliation I have utilized all available resources to obtain, update and review the patients current medications (includes all prescriptions, OTC, herbals, cannabis, and nutritional supplements).: Yes
[2024-09-17] MEDS: LACTATED RINGERS 1,000 ML 125 ML IV CONT (22:45)
[2024-09-18] VITALS (32 sets, daily range): BP systolic 91–126; BP diastolic 47–79; PULSE 72–114; RESP 16–32; TEMP 36.1–38; O2SAT 90–100; BMI 36.6
--- NOTE | 2024-09-18 00:15 | ADMGEN ---
This patient, Pal [place], was admitted to IMU Room 205-02. Patient/family oriented to hospital policies and general routines including ID bracelet, bed and alarms, visiting hours, pain management, procedures, bathroom and other care routines, personal items, smoking policy, room service/diet, and visiting hours. Information on how to activate the Rapid Response Team has been discussed. Patient/Family are encouraged to report perceived risks to care and to ask questions if they do not understand what they are told or what they should do.
[2024-09-18] MEDS: ASPIRIN 81 MG CHEWABLE TABLET 324 MG PO (00:28)
[2024-09-18 02:46] LABS: Hematocrit 16.4 % (42.0-52.0); Hemoglobin 5.2 g/dL (14.0-18.0)
[2024-09-18 02:56] LABS: Estimated CRCL calculation 89 ml/min; Estimated Glomerular Filt Rate > 60
[2024-09-18 02:57] LABS: Lactic Acid Reflex 1.6 mmol/L (0.7-2.0)
[2024-09-18 03:11] LABS: Partial Thromboplastin Time > 200.0 Seconds (22.3-36.8)
[2024-09-18 03:19] LABS: Influenza A QL RT-PCR Negative (Negative); Influenza B QL RT-PCR Negative (Negative); RSV RNA, RT-PCR Negative (Negative); SARS-CoV-2 RNA PCR Positive (Negative)
--- NOTE | 2024-09-18 03:52 | ECG_ITS ---
Test Date: 2024-09-18 04:29:45 Measurements Intervals [place] Rate: 108 P: 44 [place]: 158 QRS: 21 QRSD: 88 T: 46 QT: 362 QTc: 486 Interpretive Statements SINUS TACHYCARDIA MINIMAL ST DEPRESSION [0.025+ mV ST DEPRESSION] ABNORMAL ECG Electronically Signed On 09-18-2024 10:04:23 CDT by Migue Badillo M.D.
[2024-09-18 04:25] LABS: Procalcitonin 1.5 ng/mL
[2024-09-18] MEDS: SODIUM CHLORIDE 0.9% IV 250 ML 30 ML IV CONT ×3 (05:08→22:00)
[2024-09-18] MEDS: TUBING, BLOOD PLUM PUMP TUBING 1 EACH XX ×4 (05:09→22:00)
[2024-09-18] MEDS: CEFEPIME 2 GM/NS 50 ML 2 GM/50 ML BAG IVPB ×3 (05:22→20:25)
[2024-09-18] MEDS: PANTOPRAZOLE SODIUM IV 40 MG VIAL IV PUSH (05:22)
[2024-09-18] MEDS: LACTATED RINGERS 1,000 ML 125 ML IV CONT ×2 (05:23→16:26)
[2024-09-18] MEDS: VANCOMYCIN 1,500 MG/NS 500 ML 1,500 MG/500 ML BAG 250 MG IVPB ×2 (07:05→20:25)
[2024-09-18] MEDS: REMDESIVIR 200 MG/NS 250 ML 200 MG/250 ML BAG 250 MG IVPB (07:45)
[2024-09-18] MEDS: SODIUM CHLORIDE 1 GM TABLET PO ×2 (08:24→16:10)
--- NOTE | 2024-09-18 09:04 | P.PNIM_ITS ---
Progress Note: A&P Assessment and Plan (1) Non-STEMI (non-ST elevated myocardial infarction): Code(s): I21.4 - Non-ST elevation (NSTEMI) myocardial infarction Status: Acute (2) Demand ischemia: Code(s): I24.89 - Other forms of acute ischemic heart disease Status: Acute (3) Hyponatremia: Code(s): E87.1 - Hypo-osmolality and hyponatremia Status: Acute (4) Mass of left ear canal: Code(s): H93.8X2 - Other specified disorders of left ear Status: Acute (5) GERD with esophagitis: Qualifiers: Esophagitis bleeding: unspecified whether hemorrhage Qualified Code(s): K21.00 - Gastro-esophageal reflux disease with esophagitis, without bleeding Code(s): K21.00 - Gastro-esophageal reflux disease with esophagitis, without bleeding Status: Acute (6) Urinary tract infection: Qualifiers: Hematuria presence: without hematuria Urinary tract infection type: acute cystitis Qualified Code(s): N30.00 - Acute cystitis without hematuria Code(s): N39.0 - Urinary tract infection, site not specified Status: Acute (7) Acute on chronic blood loss anemia: Code(s): D62 - Acute posthemorrhagic anemia Status: Acute (8) COVID-19: Code(s): U07.1 - COVID-19 Status: Acute Plan Urosepsis Central line placed BP stable received bolus in ED No Vasopressors BC and UC pending Cefepime and Vancomycin Pending Nasal MRSA Acute on Chronic anemia Initially on Heparin drip but dc'ed due to drop in Hgb Monitor H and H Recent EGD and colonoscopy outside facility demonstrating severe erosive esophagitis and colitis. 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 UC DC Mesalamine 1000mg PO Supp Start Mesalamine 1000mg QID PO External Ear Canal Mass OP f/u Partial removal COVID On Remdisivir Monitor vital Saturating 95% on room air Subjective Date/time seen: 09/18/24 09:04 Interval history: 59-year-old male with past medical history intellectual disability, hydrocephalus, obesity, and recent hospitalization at [facility] 09/03/2024 through 09/14/2024 for dehydration, suspected GI bleed with symptomatic anemia, f ollowing a fall at home with 2 days on the floor who presented to the ER from [facility] nursing and rehab due to syncopal event during physical therapy. Patient is watching TV without any distress. Discussed with cardiology who recommend medical management for elevated troponin and target HgB 9 due to possible ongoing ischemia. Discussed with GI who reported patient might need increase in mesalamine to 3.6 g/day. Spoke with pharmacy and we dont have that dosage so starting on 1000mg QID. Objective Data Vital Signs Vital Signs: Vital Signs - 24 hr 09/17/24 14:59 09/17/24 15:30 09/17/24 16:00 Temperature 97.9 F Pulse Rate 114 H 122 H 125 H Respiratory Rate 28 H 26 H 26 H Blood Pressure 126/66 99/68 L 112/61 Pulse Oximetry 100 100 100 Oxygen Delivery Room Air 09/17/24 16:30 09/17/24 17:00 09/17/24 17:30 Temperature Pulse Rate 130 H 130 H 130 H Respiratory Rate 26 H 26 H 22 H Blood Pressure 116/64 122/82 122/80 Pulse Oximetry 100 100 100 Oxygen Delivery 09/17/24 18:00 09/17/24 18:30 09/17/24 19:18 Temperature Pulse Rate 127 H 126 H 131 H Respiratory Rate 28 H 26 H 37 H Blood Pressure 112/65 123/64 Pulse Oximetry 100 100 Oxygen Delivery 09/17/24 19:30 09/17/24 19:31 09/17/24 19:45 Temperature Pulse Rate 130 H 130 H 130 H Respiratory Rate 35 H 37 H 33 H Blood Pressure 109/72 Pulse Oximetry 100 100 Oxygen Delivery 09/17/24 20:00 09/17/24 20:01 09/17/24 20:15 Temperature Pulse Rate 127 H 126 H 124 H Respiratory Rate 35 H 33 H 37 H Blood Pressure 93/51 L Pulse Oximetry Oxygen Delivery 09/17/24 20:30 09/17/24 20:31 09/17/24 20:32 Temperature Pulse Rate 123 H 120 H 122 H Respiratory Rate 22 H 33 H 39 H Blood Pressure 87/58 L 105/66 Pulse Oximetry Oxygen Delivery 09/17/24 20:45 09/17/24 21:00 09/17/24 21:01 Temperature Pulse Rate 122 H 124 H 124 H Respiratory Rate 33 H 33 H 30 H Blood Pressure 110/70 Pulse Oximetry 97 95 Oxygen Delivery 09/17/24 21:15 09/17/24 21:30 09/17/24 21:31 Temperature Pulse Rate 121 H 122 H 121 H Respiratory Rate 26 H 22 H 20 Blood Pressure 99/60 L Pulse Oximetry 98 97 99 Oxygen Delivery 09/17/24 21:37 09/17/24 21:41 09/17/24 21:45 Temperature Pulse Rate 124 H 123 H 123 H Respiratory Rate 25 H 35 H 30 H Blood Pressure 118/71 118/71 Pulse Oximetry 98 97 Oxygen Delivery 09/17/24 22:13 09/17/24 22:15 09/17/24 22:49 Temperature Pulse Rate 127 H 128 H 128 H Respiratory Rate 27 H 21 H 29 H Blood Pressure 102/66 Pulse Oximetry 98 99 Oxygen Delivery 09/17/24 23:50 09/18/24 00:00 09/18/24 02:00 Temperature 98.8 F Pulse Rate 125 H 114 H Respiratory Rate 22 H Blood Pressure 106/51 L Pulse Oximetry 100 Oxygen Delivery Room Air 09/18/24 04:00 09/18/24 04:00 09/18/24 04:00 Temperature 98.3 F Pulse Rate 72 111 H Respiratory Rate 18 Blood Pressure 92/52 L Pulse Oximetry 100 Oxygen Delivery Room Air 09/18/24 06:00 09/18/24 06:14 09/18/24 06:29 Temperature 98.5 F 99 F Pulse Rate 107 H 108 H 106 H Respiratory Rate 24 H 24 H Blood Pressure 98/47 L 95/50 L Pulse Oximetry 94 95 Oxygen Delivery 09/18/24 07:29 09/18/24 07:51 09/18/24 08:29 Temperature 100.4 F H 100.4 F H 100.3 F H Pulse Rate 106 H 106 H 105 H Respiratory Rate 16 16 32 H Blood Pressure 106/67 106/67 117/62 Pulse Oximetry 97 97 93 Oxygen Delivery Intake/Output Intake/Output: Intake & Output 09/15/24 09/16/24 09/17/24 09/18/24 23:59 23:59 23:59 23:59 Intake Total 4550 1190.9 Output Total 525 Balance 4025 1190.9 Meds/Results Medications: Active Medications Generic Name Dose Route Start Last Admin Trade Name [place] PRN Reason Stop Dose Admin Acetaminophen 650 mg 09/17/24 21:05 Acetaminophen 325 Mg Tablet PO Q4H PRN Mild Pain (1-3) or Fever Vancomycin HCl 1,500 mg in 500 mls @ 250 mls/hr 09/18/24 07:00 09/18/24 07:05 Vancomycin 1,500 Mg/Ns 500 Ml IVPB 250 mls/hr Q12H KRISTINE Administration Lactated Ringer's 1,000 mls @ 125 mls/hr 09/17/24 21:05 09/18/24 05:23 Lr - Lactated Ringers Iv IV CONT 125 mls/hr .Q8H KRISTINE Administration Sodium Chloride 250 mls @ 30 mls/hr 09/18/24 03:45 09/18/24 05:08 Normal Saline Iv IV CONT 09/18/24 12:04 30 mls/hr .Q8H20M STA Administration Remdesivir 100 mg in 250 mls @ 250 mls/hr 09/19/24 10:00 IVPB 09/22/24 10:59 Q24H KRISTINE Cefepime HCl 2 gm in 50 mls @ 100 mls/hr 09/18/24 05:00 09/18/24 05:22 Maxipime 2 Gm/Ns 50 Ml IVPB 100 mls/hr Q8H KRISTINE Administration Mesalamine 1,000 mg 09/18/24 21:00 Mesalamine 1,000 Mg Supp.Rect RECTAL 09/21/24 20:59 HS KRISTINE Ondansetron HCl 4 mg 09/17/24 21:05 Ondansetron Inj 4 Mg/2 Ml Vial IV PUSH Q4H PRN Nausea Pantoprazole Sodium 40 mg 09/18/24 03:50 09/18/24 05:22 Pantoprazole Sodium Iv 40 Mg Vial IV PUSH 40 mg Q12HR KRISTINE Administration Sodium Chloride 1 gm 09/18/24 09:00 09/18/24 08:24 Sodium Chloride 1 Gm Tablet PO 1 gm BID KRISTINE Administration Radiology Results: ITS Impressions Head CT 09/17/24 17:39 IMPRESSION: No acute intracranial findings. Chest/Abdomen/Pelvis CTA 09/17/24 17:45 IMPRESSION: CHEST: 1. No pulmonary embolism. 2. No acute cardiopulmonary pathology. ABDOMEN/PELVIS: 1. No evidence of appendicitis, diverticulitis or intestinal obstruction. 2. Possible right kidney lower pole a stone versus early contrast excretion. Follow-up advised. 3. Slightly thickened wall of the urinary bladder with surrounding fat stranding suggestive of cystitis. 4. Tiny hypodensity in the liver most likely tiny cysts. 5. Bilateral fat containing inguinal hernias. Labs Labs: Laboratory Results - last 24 hr 09/17/24 09/17/24 09/17/24 15:22 16:25 18:10 WBC 3.8 L RBC 2.62 L Hgb 7.4 L Hct 23.6 L MCV 90.1 MCH 28.2 MCHC 31.4 L RDW 17.0 H Plt Count 414 H MPV 8.9 Immature Gran % (Auto) 0.5 Neut % (Auto) 87.4 H Lymph % (Auto) 8.4 L [place] % (Auto) 2.4 L Eos % (Auto) 0.5 Baso % (Auto) 0.8 Lymph # (Auto) 0.32 L [place] # (Auto) 0.1 Eos # (Auto) 0.0 Baso # (Auto) 0.0 Abs Immat Gran (auto) 0.02 Absolute Neuts (auto) 3.3 Absolute Nucleated RBC 0.000 Nucleated RBC % 0.0 PT 18.5 H INR 1.5 APTT 36.8 Sodium 130 L Potassium 3.7 Chloride 97 L Carbon Dioxide 18 L Anion Gap 15 H BUN 22 H Creatinine 1.05 Estim Creat Clear Calc 80 Estimated GFR > 60 Glucose 149 H Lactic Acid 4.8 H* Calcium 7.9 L Ferritin Total Bilirubin 2.9 H AST 50 ALT 24 Alkaline Phosphatase 95 Troponin I 0.175 H* 0.128 H* D Total Protein 7.0 Albumin 3.4 L Lipase 101 Procalcitonin Urine Color Urine Appearance Urine pH Ur Specific [place] Urine Protein Urine Glucose (UA) Urine Ketones Ur Blood (Man) Urine Nitrate Urine Bilirubin Urine Urobilinogen Leukocyte Esterase Rfl Urine RBC Urine WBC Urine Bacteria Urine Mucus Influenza A (RT-PCR) Influenza B (RT-PCR) RSV (RT-PCR) SARS-CoV-2 RNA (RT-PCR) Blood Type Antibody Screen Crossmatch 09/17/24 09/17/24 09/17/24 18:29 18:50 21:38 WBC RBC Hgb Hct MCV MCH MCHC RDW Plt Count MPV Immature Gran % (Auto) Neut % (Auto) Lymph % (Auto) [place] % (Auto) Eos % (Auto) Baso % (Auto) Lymph # (Auto) [place] # (Auto) Eos # (Auto) Baso # (Auto) Abs Immat Gran (auto) Absolute Neuts (auto) Absolute Nucleated RBC Nucleated RBC % PT INR APTT Sodium Potassium Chloride Carbon Dioxide Anion Gap BUN Creatinine Estim Creat Clear Calc Estimated GFR Glucose Lactic Acid 5.0 H* Calcium Ferritin Total Bilirubin AST ALT Alkaline Phosphatase Troponin I 1.500 H* D Total Protein Albumin Lipase Procalcitonin Urine Color Dark yellow Urine Appearance Turbid H Urine pH 5.5 Ur Specific [place] 1.018 Urine Protein 1+ H Urine Glucose (UA) Negative Urine Ketones Trace H Ur Blood (Man) 1+ H Urine Nitrate Positive H Urine Bilirubin 2+ H Urine Urobilinogen 4.0 H Leukocyte Esterase Rfl 3+ H Urine RBC 0-2 Urine WBC 51-75 H Urine Bacteria 4+ H Urine Mucus Moderate H Influenza A (RT-PCR) Influenza B (RT-PCR) RSV (RT-PCR) SARS-CoV-2 RNA (RT-PCR) Blood Type Antibody Screen Crossmatch 09/18/24 09/18/24 02:35 02:36 WBC RBC Hgb 5.2 L* Hct 16.4 L* MCV MCH MCHC RDW Plt Count MPV Immature Gran % (Auto) Neut % (Auto) Lymph % (Auto) [place] % (Auto) Eos % (Auto) Baso % (Auto) Lymph # (Auto) [place] # (Auto) Eos # (Auto) Baso # (Auto) Abs Immat Gran (auto) Absolute Neuts (auto) Absolute Nucleated RBC Nucleated RBC % PT INR APTT > 200.0 H* Sodium Potassium Chloride Carbon Dioxide Anion Gap BUN Creatinine 0.94 Estim Creat Clear Calc 89 Estimated GFR > 60 Glucose Lactic Acid 1.6 Calcium Ferritin 156.00 Total Bilirubin AST ALT Alkaline Phosphatase Troponin I 11.400 H* D Total Protein Albumin Lipase Procalcitonin 1.5 Urine Color Urine Appearance Urine pH Ur Specific [place] Urine Protein Urine Glucose (UA) Urine Ketones Ur Blood (Man) Urine Nitrate Urine Bilirubin Urine Urobilinogen Leukocyte Esterase Rfl Urine RBC Urine WBC Urine Bacteria Urine Mucus Influenza A (RT-PCR) Negative Influenza B (RT-PCR) Negative RSV (RT-PCR) Negative SARS-CoV-2 RNA (RT-PCR) Positive A Blood Type O Negative Antibody Screen Negative Crossmatch See Detail Hospitalist MIPS Advance Care Plan I have confirmed that the patient's Advanced Care Plan is present, code status is documented, or surrogate decision maker is listed in patient medical record.: Yes Medication Reconciliation I have utilized all available resources to obtain, update and review the patients current medications (includes all prescriptions, OTC, herbals, cannabis, and nutritional supplements).: Yes
[2024-09-18] MEDS: SODIUM CHLORIDE 0.9% IV 100 ML (09:25)
[2024-09-18 11:06] LABS: MRSA (PCR) NOT DETECTED (NOT DETECTE)
[2024-09-18 12:18] LABS: Bilirubin Indirect 1.1 mg/dL (0-1.1); Iron 35 ug/dL (49-181)
[2024-09-18 12:20] LABS: Lactate Dehydrogenase 423 U/L (120-246)
[2024-09-18 12:29] LABS: Percent Iron Saturation 18 % (20-50)
[2024-09-18 13:24] LABS: Folic Acid 2.7 ng/mL (2.76->20)
--- NOTE | 2024-09-18 13:26 | ECG_ITS ---
Test Date: 2024-09-18 13:38:13 Measurements Intervals [place] Rate: 103 P: 57 [place]: 158 QRS: 30 QRSD: 94 T: 64 QT: 372 QTc: 489 Interpretive Statements SINUS TACHYCARDIA WITH OCCASIONAL SUPRAVENTRICULAR PREMATURE COMPLEXES LOW QRS VOLTAGE IN EXTREMITY LEADS [QRS DEFLECTION < 0.5 mV IN LIMB LEADS] MODERATE ST DEPRESSION [0.05+ mV ST DEPRESSION] ABNORMAL ECG Compared to ECG 09/18/2024 04:29:45 Low QRS voltage now present ST (T wave) deviation still present Electronically Signed On 09-18-2024 15:43:13 CDT by Migue Badillo M.D.
[2024-09-18 13:35] LABS: Basophils Percent Auto 0.8 % (0.2-1.2); Hematocrit 21.1 % (42.0-52.0); Immature Granulocyte Absolute 0.02 K/mm3 (0.00-0.031); Immature Granulocyte Percent A 0.5 % (0-0.5); Lymphocytes Absolute Auto 0.94 K/mm3 (0.9-3.2); Lymphocytes Percent Auto 23.7 % (18.3-44.2); Mean Corpuscular HGB Conc 32.2 g/dl (32-36); Mean Corpuscular Hemoglobin 28.2 pg (26-34); Mean Corpuscular Volume 87.6 fl (80-100); Monocytes Absolute Auto 0.4 K/mm3 (0.1-0.6); Monocytes Percent Auto 11.1 % (2.6-8.5); Neutrophils Absolute Auto 2.5 K/mm3 (1.3-6.7); Neutrophils Percent Auto 63.9 % (45.5-73.1); Platelet Count Result 251 k/mm3 (150-375); Red Blood Count 2.41 M/mm3 (4.6-6.20)
[2024-09-18 13:39] LABS: Hemoglobin 6.8 g/dL (14.0-18.0)
[2024-09-18 13:39] LABS: Immature Reticulocyte Fraction 20.3 % (3.0-15.9); Reticulocyte Hemoglobin Conten 25.9 pg (28.2-36.6); Reticulocyte Percent 3.68 % (0.7-4.3); Reticulocytes Absolute 0.09 10^6/uL (0.02-0.10)
[2024-09-18 13:43] LABS: INR 1.7; Prothrombin Time 20.3 Seconds (11.1-14.7)
[2024-09-18 13:44] LABS: Alanine Aminotransferase 30 U/L (6-50); Albumin Level 2.4 g/dL (3.5-5.1); Alkaline Phosphatase 61 U/L (38-126); Anion Gap 11 mmol/L (4-12); Aspartate Amino Transferase 131 U/L (17-59); Blood Urea Nitrogen 20 mg/dL (9-20); Calcium 7.1 mg/dL (8.4-10.2); Carbon Dioxide 19 mmol/L (22-30); Chloride 103 mmol/L (98-107); Estimated CRCL calculation 101 ml/min; Estimated Glomerular Filt Rate > 60; Glucose 131 mg/dL (65-110); Magnesium 1.9 mg/dL (1.6-2.3); Potassium 3.3 mmol/L (3.4-5.0); Sodium 133 mmol/L (137-145)
[2024-09-18 13:45] LABS: Partial Thromboplastin Time 45.8 Seconds (22.3-36.8)
--- NOTE | 2024-09-18 13:52 | PM.CNCAR ---
Assessment and Plan Assessment and plan (1) Non-STEMI (non-ST elevated myocardial infarction): Code(s): I21.4 - Non-ST elevation (NSTEMI) myocardial infarction Status: Acute Assessment and Plan: Difficult situation given the hemoglobin and severe and acute anemia. With heparin, hemoglobin dropped to 5. EKG has improved with blood and I have encouraged transfusing up to hemoglobin level of at least 9. I will start him on atorvastatin 40 mg daily as well as order a 2D echocardiogram. Likely he is not having any active chest pain. As BP will allow will start him on some low-dose beta-darshan in form metoprolol tartrate 12.5 mg p.o. b.i.d.. Workup for anemia should be initiated and obviously given the severe acute anemia, there will be no plans to take him to the cardiac catheterization lab at this point. No aspirin or heparin will be given either. I did talk this over with hospitalist as well as talk to the patient's aunt. (2) Lactic acidosis: Code(s): E87.20 - Acidosis, unspecified Status: Acute Assessment and Plan: Improving (3) Acute on chronic blood loss anemia: Code(s): D62 - Acute posthemorrhagic anemia Status: Acute Assessment and Plan: Already received 2 units of blood and receiving 1 more at least. Follow H&H. Hospitalist involved and treating (4) Syncope: Qualifiers: Syncope type: unspecified Qualified Code(s): R55 - Syncope and collapse Code(s): R55 - Syncope and collapse Status: Acute Assessment and Plan: His syncope is worrisome for t arrhythmogenic etiology. Continue telemetry History of Present Illness History of Present Illness Consult date/time: 09/18/24 13:52 Requesting physician: Jass Crawford MD Consult reason: Other (Elevated troponin, non STEMI) Reason For Visit: Sepsis, urinary tract infection, demand ischemia Narrative: Reason for consultation: Non-STEMI Date of service 09/18/2024 Requesting provider: Dr. crawford History patient is 59-year-old male who has he history of hydrocephalus. He is intellectual disability, obesity who had been living independently at home. Formally had been living with in an uncle but due to their health issues that had forced him to move out of the house, he stayed at the house for the past couple years living independently. He was recently at [facility] for about 11 days for combination of dehydration, suspected GI bleed, anemia and a fall. He was found on the floor of his house after not being heard from for a couple of days. He had elevated troponins and treated for dehydration as well as anemia. Reportedly underwent an endoscopy and colonoscopy and was noted to have esophagitis and some colitis and proctitis. He was discharged to nursing facility and patient reported was too weak to stand up. Evidently during physical therapy patient had a syncopal event and was diaphoretic. Blood pressure was in the 70 systolic per EMS. Heart rate was reportedly around the 130s. Initial hemoglobin in the ER was 7.4. Troponin was minimally elevated. Started on a heparin drip. EKG was markedly abnormal with ST segment depressions inferior and anterolateral leads. Follow-up hemoglobin however had dropped down to in the 5 range. Heparin was therefore stopped. Patient has received 2 units of blood. Troponin is further trended up to 11.9. Second EKG shows worsening ST segment depressions. Patient does not have any chest pain however. He actually is comfortable and without complaints of shortness of breath, paroxysmal nocturnal dyspnea, orthopnea, edema or palpitations. Respiratory panel was also performed and patient is tested positive for COVID and is now on isolation Review of Systems Review of Systems: All systems reviewed & are unremarkable except as noted in HPI and below Constitutional: Constitutional: Denies body ache(s) Eyes: Eyes: Denies blurry vision ENT: Denies Normal hearing present Cardiovascular: Cardiovascular: Denies chest pain Respiratory: Respiratory: Denies hemoptysis Gastrointestinal: Gastrointestinal: Denies abdominal pain Genitourinary: Genitourinary: Denies hematuria Musculoskeletal: Musculoskeletal: Denies back pain Integumentary/Breasts: Skin/Breast: Denies dry skin Neurologic: Denies Abnormal speech present Psychiatric: Psychiatric: Denies anxiety Endocrine: Endocrine: Denies excessive sweating Hematologic/Lymphatic: Hematologic/Lymphatic: Denies easy bleeding Allergic/Immunologic: Allergic/Immunologic: Denies GI upset with certain foods PMFSH Past Medical History Medical History (Updated 09/18/24 @ 04:40 by Joselin Bernardo DO) Ulcerative colitis GERD with esophagitis Chronic anemia Intellectual disability Surgical History Surgical History (Updated 09/18/24 @ 04:27 by Joselin Bernardo DO) History of colonoscopy (08/2024) History of esophagogastroduodenoscopy (EGD) (08/2024) Family History Family History Grandparent Cancer Mother Cirrhosis of liver Unknown Diabetes mellitus Social History Social History (Updated 09/18/24 @ 04:35 by Joselin Bernardo DO) Social History: Until September 03 2024 the patient lived in his own residence. He is single and does not have children. He stated that his aunt and uncle had lives with him prior but his uncle in his aunt had orthopedic surgery and had to move. Patient states he has had ambulate with a walker for the last year (presume since 2023). Code status: DNR/DNI (per penitentiary paperwork) Surrogate decision maker: Gianna Peters (aunt) Smoking status: Never smoker Alcohol intake: former Substance use: former Substance use type: marijuana Do You Feel Safe in your Home?: Yes Lack of Transportation: No Lack of Food: Never True Current Housing: I Have Housing Concerned About Future Housing: No Difficulty Paying Gas/Electric Bills: No Difficulty Paying for Meds: No Currently Unemployed: No Education: High School Diploma/GED Difficulty w/ Childcare or Family Care: No Spiritual care concerns: No Meds Home Medications and Allergies Home Medications ?Medication ?Instructions ?Recorded ?Confirmed ?Type acetaminophen 650 mg 650 mg PO Q4H PRN pain 09/18/24 09/18/24 History tablet,extended release mesalamine 1,000 mg rectal 1 g RECTAL HS 09/18/24 09/18/24 History suppository pantoprazole 40 mg tablet,delayed 40 mg PO BID 09/18/24 09/18/24 History release (Protonix) sodium chloride 1,000 mg soluble 1,000 mg PO BID 09/18/24 09/18/24 History tablet Allergies Allergy/AdvReac Type Severity Reaction Status Date / Time zinc Allergy Unknown UNKNOWN Verified 10/12/15 13:42 Vital Signs Vital Signs - 24 hr 09/17/24 14:59 09/17/24 15:30 09/17/24 16:00 Temperature 36.6 C Pulse Rate 114 H 122 H 125 H Respiratory Rate 28 H 26 H 26 H Blood Pressure 126/66 99/68 L 112/61 Pulse Oximetry 100 100 100 Oxygen Delivery Room Air 09/17/24 16:30 09/17/24 17:00 09/17/24 17:30 Temperature Pulse Rate 130 H 130 H 130 H Respiratory Rate 26 H 26 H 22 H Blood Pressure 116/64 122/82 122/80 Pulse Oximetry 100 100 100 Oxygen Delivery 09/17/24 18:00 09/17/24 18:30 09/17/24 19:18 Temperature Pulse Rate 127 H 126 H 131 H Respiratory Rate 28 H 26 H 37 H Blood Pressure 112/65 123/64 Pulse Oximetry 100 100 Oxygen Delivery 09/17/24 19:30 09/17/24 19:31 09/17/24 19:45 Temperature Pulse Rate 130 H 130 H 130 H Respiratory Rate 35 H 37 H 33 H Blood Pressure 109/72 Pulse Oximetry 100 100 Oxygen Delivery 09/17/24 20:00 09/17/24 20:01 09/17/24 20:15 Temperature Pulse Rate 127 H 126 H 124 H Respiratory Rate 35 H 33 H 37 H Blood Pressure 93/51 L Pulse Oximetry Oxygen Delivery 09/17/24 20:30 09/17/24 20:31 09/17/24 20:32 Temperature Pulse Rate 123 H 120 H 122 H Respiratory Rate 22 H 33 H 39 H Blood Pressure 87/58 L 105/66 Pulse Oximetry Oxygen Delivery 09/17/24 20:45 09/17/24 21:00 09/17/24 21:01 Temperature Pulse Rate 122 H 124 H 124 H Respiratory Rate 33 H 33 H 30 H Blood Pressure 110/70 Pulse Oximetry 97 95 Oxygen Delivery 09/17/24 21:15 09/17/24 21:30 09/17/24 21:31 Temperature Pulse Rate 121 H 122 H 121 H Respiratory Rate 26 H 22 H 20 Blood Pressure 99/60 L Pulse Oximetry 98 97 99 Oxygen Delivery 09/17/24 21:37 09/17/24 21:41 09/17/24 21:45 Temperature Pulse Rate 124 H 123 H 123 H Respiratory Rate 25 H 35 H 30 H Blood Pressure 118/71 118/71 Pulse Oximetry 98 97 Oxygen Delivery 09/17/24 22:13 09/17/24 22:15 09/17/24 22:49 Temperature Pulse Rate 127 H 128 H 128 H Respiratory Rate 27 H 21 H 29 H Blood Pressure 102/66 Pulse Oximetry 98 99 Oxygen Delivery 09/17/24 23:50 09/18/24 00:00 09/18/24 02:00 Temperature 37.1 C Pulse Rate 125 H 114 H Respiratory Rate 22 H Blood Pressure 106/51 L Pulse Oximetry 100 Oxygen Delivery Room Air 09/18/24 04:00 09/18/24 04:00 09/18/24 04:00 Temperature 36.8 C Pulse Rate 72 111 H Respiratory Rate 18 Blood Pressure 92/52 L Pulse Oximetry 100 Oxygen Delivery Room Air 09/18/24 06:00 09/18/24 06:14 09/18/24 06:29 Temperature 36.9 C 37.2 C Pulse Rate 107 H 108 H 106 H Respiratory Rate 24 H 24 H Blood Pressure 98/47 L 95/50 L Pulse Oximetry 94 95 Oxygen Delivery 09/18/24 07:29 09/18/24 07:51 09/18/24 08:00 Temperature 38.0 C H 38.0 C H Pulse Rate 106 H 106 H 106 H Respiratory Rate 16 16 16 Blood Pressure 106/67 106/67 Pulse Oximetry 97 97 97 Oxygen Delivery Room Air 09/18/24 08:00 09/18/24 08:00 09/18/24 08:29 Temperature 37.9 C H Pulse Rate 105 H 105 H Respiratory Rate 32 H Blood Pressure 117/62 Pulse Oximetry 97 93 Oxygen Delivery Room Air 09/18/24 08:55 09/18/24 09:31 09/18/24 09:46 Temperature 37.6 C 37.8 C H 37.4 C Pulse Rate 74 107 H 108 H Respiratory Rate 30 H 30 H 28 H Blood Pressure 114/63 126/60 121/62 Pulse Oximetry 96 100 95 Oxygen Delivery 09/18/24 09:47 09/18/24 10:00 09/18/24 10:46 Temperature 37.4 C 37.4 C Pulse Rate 108 H 112 H 105 H Respiratory Rate 28 H 28 H Blood Pressure 121/62 96/74 L Pulse Oximetry 95 95 Oxygen Delivery 09/18/24 11:42 09/18/24 11:52 Temperature 36.1 C L Pulse Rate 105 H 105 H Respiratory Rate 18 16 Blood Pressure 113/62 113/62 Pulse Oximetry 95 95 Oxygen Delivery Exam Narrative: Awake alert oriented. Appears stated age. Unkempt Const: General: comfortable and no acute distress HENMT: Ears: TM's normal bilaterally Face/Nose/Sinus: Normal nares present Eyes: General: appearance normal, both eyes and all related structures Sclera: sclerae normal Neck: Neck: supple and no JVD Chest: Other: No reproducible chest wall pain to palpation Resp: Effort & Inspection: normal respiratory effort Auscultation: clear to auscultation bilaterally Cardio: Rate: regular rate Rhythm: regular rhythm Heart sounds: no murmurs GI: Inspection: non-distended GI Palp: Yes Soft to palpation Auscultation: normal bowel sounds Skin: General skin exam: normal color Neuro: Speech: normal speech Sensory Exam: normal sensation Extrem: General: normal to inspection Psych: Mental Status: mental status grossly normal Results Labs and Meds 09/18/24 12:40 09/18/24 13:21 Lab results: Cardiac Enzymes 09/17/24 09/17/24 09/17/24 Range/Units 15:22 18:10 21:38 AST 50 (17-59) U/L Lactate Dehydrogenase (120-246) U/L Troponin I 0.175 H* 0.128 H* D 1.500 H* D (0.000-0.034) ng/mL 09/18/24 09/18/24 09/18/24 Range/Units 02:36 11:56 13:21 AST 131 H (17-59) U/L Lactate Dehydrogenase 423 H (120-246) U/L Troponin I 11.400 H* D (0.000-0.034) ng/mL Coagulation 09/17/24 09/18/24 09/18/24 Range/Units 15:22 02:36 13:21 PT 18.5 H 20.3 H (11.1-14.7) Seconds APTT 36.8 > 200.0 H* 45.8 H (22.3-36.8) Seconds CBC 09/17/24 09/18/24 09/18/24 Range/Units 15:22 02:36 12:40 WBC 3.8 L 4.0 L (4.5-10.0) K/mm3 RBC 2.62 L 2.41 L (4.6-6.20) M/mm3 Hgb 7.4 L 5.2 L* 6.8 L* (14.0-18.0) g/dL Hct 23.6 L 16.4 L* 21.1 L (42.0-52.0) % Plt Count 414 H 251 (150-375) k/mm3 Lymph # (Auto) 0.32 L 0.94 (0.9-3.2) K/mm3 [place] # (Auto) 0.1 0.4 (0.1-0.6) K/mm3 Eos # (Auto) 0.0 0.0 (0-0.3) K/mm3 Baso # (Auto) 0.0 0.0 (0.0-0.1) K/mm3 Comprehensive Metabolic Panel 09/17/24 09/18/24 09/18/24 Range/Units 15:22 02:36 11:56 Sodium 130 L (137-145) mmol/L Potassium 3.7 (3.4-5.0) mmol/L Chloride 97 L (98-107) mmol/L Carbon Dioxide 18 L (22-30) mmol/L BUN 22 H (9-20) mg/dL Creatinine 1.05 0.94 (0.7-1.3) mg/dL Glucose 149 H (65-110) mg/dL Calcium 7.9 L (8.4-10.2) mg/dL Indirect Bilirubin 1.1 (0-1.1) mg/dL AST 50 (17-59) U/L ALT 24 (6-50) U/L Alkaline Phosphatase 95 (38-126) U/L Total Protein 7.0 (6.3-8.2) g/dL Albumin 3.4 L (3.5-5.1) g/dL 09/18/24 Range/Units 13:21 Sodium 133 L (137-145) mmol/L Potassium 3.3 L (3.4-5.0) mmol/L Chloride 103 (98-107) mmol/L Carbon Dioxide 19 L (22-30) mmol/L BUN 20 (9-20) mg/dL Creatinine 0.82 (0.7-1.3) mg/dL Glucose 131 H (65-110) mg/dL Calcium 7.1 L (8.4-10.2) mg/dL Indirect Bilirubin (0-1.1) mg/dL AST 131 H (17-59) U/L ALT 30 (6-50) U/L Alkaline Phosphatase 61 (38-126) U/L Total Protein 5.0 L (6.3-8.2) g/dL Albumin 2.4 L (3.5-5.1) g/dL Intake and Output 09/17/24 09/18/24 09/18/24 23:59 07:59 15:59 Intake Total 4550 1240.9 1367 Output Total 525 Balance 4025 1240.9 1367 Intake: IV 4550 940.9 750 Heparin Sod/D5w 100 Units/ml 25 61.7 ,000 units In 250 ml @ 0 UNITS/ HR IV CONT .Q0M [facility] Rx#: [id number] Lactated Ringers 1,000 ml @ 125 4000 829.2 mls/hr IV CONT .Q8H [facility] Rx#: [id number] Cefepime 2 gm/Ns 50 ml 2 gm In 50 50 50 ml @ 100 mls/hr IVPB Q8H [facility] Rx#:[id number] Remdesivir 200 mg/Ns 250 ml 200 250 mg In 250 ml @ 250 mls/hr IVPB ONCE ONE Rx#:[id number] Vancomycin 1,250 mg/Ns 250 ml 1 500 ,250 mg In 250 ml @ 166.667 mls /hr IVPB ONCE ONE Rx#:[id number] Vancomycin 1,500 mg/Ns 500 ml 1 500 ,500 mg In 500 ml @ 250 mls/hr IVPB Q12H [facility] Rx#:[id number] Intake (Blood Product) Amt 0 617 Leuko Reduced Rbc Low Volume 0 290 Unit [id number] Leukocyte Reduced Rbc Unit 327 [id number] Oral 300 Output: Urine 300 Catheter Urine 225 Coude 225 Patient Weight 09/18/24 23:59 Weight 106.2 kg EKGs are personally reviewed and independently interpreted. Initial [address] segment depressions inferior and anterolateral leads concerning for ischemia. In the 2nd EKG there is slight ST elevation in AVR even concerning for acute injury pattern. Follow-up EKG though following 2 units of blood shows improvement of these ST segment abnormalities.
[2024-09-18] MEDS: FUROSEMIDE INJ 40 MG/4 ML VIAL 20 MG IV PUSH ×2 (14:13→18:57)
--- NOTE | 2024-09-18 14:42 | P.CONGI_ITS ---
Assessment and Plan Assessment and plan (1) Non-STEMI (non-ST elevated myocardial infarction): Code(s): I21.4 - Non-ST elevation (NSTEMI) myocardial infarction Status: Acute (2) Anemia: Code(s): D64.9 - Anemia, unspecified Status: Acute Assessment and Plan: The patient presents with a mixed anemia, characterized by low iron saturation and folate deficiency. The recent colonoscopy revealing ulcerative colitis is likely the primary contributor to the anemia and hypoalbuminemia, suggestive of protein-losing enteropathy. Given the patient's current ischemic status, likely secondary to severe anemia, he is at increased risk for cardiac complications. To better assess the activity of his inflammatory bowel disease I recommend obtaining fecal calprotectin and CRP levels. Furthermore, oral mesalamine 3.6g daily should be initiated to optimize treatment of ulcerative colitis. GI Consult Note Consult date/time: 09/18/24 14:42 HPI: Pal Carolina is a 59 year old male? ?With an apparent diagnosis of ulcerative colitis, having a recent colonoscopy in another institution, demonstrating active ulcerative colitis along with a recent EGD showing esophagitis.? He has apparently prescribed mesalamine, but due to hearing and general limitations, a good history is not? obtainable from the patient.? The reason for consultation is the finding of severe anemia, hemoglobin 5.2.? He is currently receiving blood transfusions.? His anemia is mixed? with? iron deficency,? with iron saturation of 18%, and low folic acid levels. ?Apparently there is no history of rectal bleeding or chronic diarrhea. ? In addition, the patient was found to be COVID positive and is currently receiving remdesivir? and has an elevated troponin level and electrocardiogram changes, which are felt to be secondary to severe anemia.? Cardiology is being consulted and is opting for conservative management, transfusion, and medical treatment but no interventional procedures for now.? Heparin was considered for cardiac ischemia but had due to severe anemia. Review of Systems 2 Review of Systems: All systems reviewed & are unremarkable except as noted in HPI and below PMFSH Past Medical History Medical History (Updated 09/18/24 @ 04:40 by Joselin Bernardo DO) Ulcerative colitis GERD with esophagitis Chronic anemia Intellectual disability Surgical History Surgical History (Updated 09/18/24 @ 04:27 by Joselin Bernardo DO) History of colonoscopy (08/2024) History of esophagogastroduodenoscopy (EGD) (08/2024) Family History Family History Grandparent Cancer Mother Cirrhosis of liver Unknown Diabetes mellitus Social History Social History (Updated 09/18/24 @ 04:35 by Joselin Bernardo DO) Social History: Until September 03 2024 the patient lived in his own residence. He is single and does not have children. He stated that his aunt and uncle had lives with him prior but his uncle in his aunt had orthopedic surgery and had to move. Patient states he has had ambulate with a walker for the last year (presume since 2023). Code status: DNR/DNI (per long term paperwork) Surrogate decision maker: Gianna Peters (aunt) Smoking status: Never smoker Alcohol intake: former Substance use: former Substance use type: marijuana Do You Feel Safe in your Home?: Yes Lack of Transportation: No Lack of Food: Never True Current Housing: I Have Housing Concerned About Future Housing: No Difficulty Paying Gas/Electric Bills: No Difficulty Paying for Meds: No Currently Unemployed: No Education: High School Diploma/GED Difficulty w/ Childcare or Family Care: No Spiritual care concerns: No Meds Home Medications and Allergies Home Medications ?Medication ?Instructions ?Recorded ?Confirmed ?Type acetaminophen 650 mg 650 mg PO Q4H PRN pain 09/18/24 09/18/24 History tablet,extended release mesalamine 1,000 mg rectal 1 g RECTAL HS 09/18/24 09/18/24 History suppository pantoprazole 40 mg tablet,delayed 40 mg PO BID 09/18/24 09/18/24 History release (Protonix) sodium chloride 1,000 mg soluble 1,000 mg PO BID 09/18/24 09/18/24 History tablet Allergies Allergy/AdvReac Type Severity Reaction Status Date / Time zinc Allergy Unknown UNKNOWN Verified 10/12/15 13:42 Vital Signs Vital Signs - 24 hr 09/17/24 14:59 09/17/24 15:30 09/17/24 16:00 Temperature 97.9 F Pulse Rate 114 H 122 H 125 H Respiratory Rate 28 H 26 H 26 H Blood Pressure 126/66 99/68 L 112/61 Pulse Oximetry 100 100 100 Oxygen Delivery Room Air 09/17/24 16:30 09/17/24 17:00 09/17/24 17:30 Temperature Pulse Rate 130 H 130 H 130 H Respiratory Rate 26 H 26 H 22 H Blood Pressure 116/64 122/82 122/80 Pulse Oximetry 100 100 100 Oxygen Delivery 09/17/24 18:00 09/17/24 18:30 09/17/24 19:18 Temperature Pulse Rate 127 H 126 H 131 H Respiratory Rate 28 H 26 H 37 H Blood Pressure 112/65 123/64 Pulse Oximetry 100 100 Oxygen Delivery 09/17/24 19:30 09/17/24 19:31 09/17/24 19:45 Temperature Pulse Rate 130 H 130 H 130 H Respiratory Rate 35 H 37 H 33 H Blood Pressure 109/72 Pulse Oximetry 100 100 Oxygen Delivery 09/17/24 20:00 09/17/24 20:01 09/17/24 20:15 Temperature Pulse Rate 127 H 126 H 124 H Respiratory Rate 35 H 33 H 37 H Blood Pressure 93/51 L Pulse Oximetry Oxygen Delivery 09/17/24 20:30 09/17/24 20:31 09/17/24 20:32 Temperature Pulse Rate 123 H 120 H 122 H Respiratory Rate 22 H 33 H 39 H Blood Pressure 87/58 L 105/66 Pulse Oximetry Oxygen Delivery 09/17/24 20:45 09/17/24 21:00 09/17/24 21:01 Temperature Pulse Rate 122 H 124 H 124 H Respiratory Rate 33 H 33 H 30 H Blood Pressure 110/70 Pulse Oximetry 97 95 Oxygen Delivery 09/17/24 21:15 09/17/24 21:30 09/17/24 21:31 Temperature Pulse Rate 121 H 122 H 121 H Respiratory Rate 26 H 22 H 20 Blood Pressure 99/60 L Pulse Oximetry 98 97 99 Oxygen Delivery 09/17/24 21:37 09/17/24 21:41 09/17/24 21:45 Temperature Pulse Rate 124 H 123 H 123 H Respiratory Rate 25 H 35 H 30 H Blood Pressure 118/71 118/71 Pulse Oximetry 98 97 Oxygen Delivery 09/17/24 22:13 09/17/24 22:15 09/17/24 22:49 Temperature Pulse Rate 127 H 128 H 128 H Respiratory Rate 27 H 21 H 29 H Blood Pressure 102/66 Pulse Oximetry 98 99 Oxygen Delivery 09/17/24 23:50 09/18/24 00:00 09/18/24 02:00 Temperature 98.8 F Pulse Rate 125 H 114 H Respiratory Rate 22 H Blood Pressure 106/51 L Pulse Oximetry 100 Oxygen Delivery Room Air 09/18/24 04:00 09/18/24 04:00 09/18/24 04:00 Temperature 98.3 F Pulse Rate 72 111 H Respiratory Rate 18 Blood Pressure 92/52 L Pulse Oximetry 100 Oxygen Delivery Room Air 09/18/24 06:00 09/18/24 06:14 09/18/24 06:29 Temperature 98.5 F 99 F Pulse Rate 107 H 108 H 106 H Respiratory Rate 24 H 24 H Blood Pressure 98/47 L 95/50 L Pulse Oximetry 94 95 Oxygen Delivery 09/18/24 07:29 09/18/24 07:51 09/18/24 08:00 Temperature 100.4 F H 100.4 F H Pulse Rate 106 H 106 H 106 H Respiratory Rate 16 16 16 Blood Pressure 106/67 106/67 Pulse Oximetry 97 97 97 Oxygen Delivery Room Air 09/18/24 08:00 09/18/24 08:00 09/18/24 08:29 Temperature 100.3 F H Pulse Rate 105 H 105 H Respiratory Rate 32 H Blood Pressure 117/62 Pulse Oximetry 97 93 Oxygen Delivery Room Air 09/18/24 08:55 09/18/24 09:31 09/18/24 09:46 Temperature 99.6 F 100.1 F H 99.4 F Pulse Rate 74 107 H 108 H Respiratory Rate 30 H 30 H 28 H Blood Pressure 114/63 126/60 121/62 Pulse Oximetry 96 100 95 Oxygen Delivery 09/18/24 09:47 09/18/24 10:00 09/18/24 10:46 Temperature 99.4 F 99.4 F Pulse Rate 108 H 112 H 105 H Respiratory Rate 28 H 28 H Blood Pressure 121/62 96/74 L Pulse Oximetry 95 95 Oxygen Delivery 09/18/24 11:42 09/18/24 11:52 09/18/24 12:00 Temperature 97 F L Pulse Rate 105 H 105 H 105 H Respiratory Rate 18 16 16 Blood Pressure 113/62 113/62 Pulse Oximetry 95 95 95 Oxygen Delivery Room Air 09/18/24 12:00 09/18/24 14:14 Temperature Pulse Rate 101 H Respiratory Rate Blood Pressure 123/54 L Pulse Oximetry Oxygen Delivery Exam 2 Narrative: The patient is poorly cooperative, hard of hearing. Abdomen: Soft, nontender, no hepatosplenomegaly, no tenderness. Results Labs 09/18/24 12:40 09/18/24 13:21 Labs: Short CBC 09/17/24 09/18/24 09/18/24 Range/Units 15:22 02:36 12:40 WBC 3.8 L 4.0 L (4.5-10.0) K/mm3 Hgb 7.4 L 5.2 L* 6.8 L* (14.0-18.0) g/dL Hct 23.6 L 16.4 L* 21.1 L (42.0-52.0) % Plt Count 414 H 251 (150-375) k/mm3 BMP 09/17/24 09/18/24 09/18/24 15:22 02:36 13:21 Sodium 130 L 133 L Potassium 3.7 3.3 L Chloride 97 L 103 Carbon Dioxide 18 L 19 L BUN 22 H 20 Creatinine 1.05 0.94 0.82 Glucose 149 H 131 H Calcium 7.9 L 7.1 L Cardiac Enzymes 09/17/24 09/17/24 09/17/24 Range/Units 15:22 18:10 21:38 Troponin I 0.175 H* 0.128 H* D 1.500 H* D (0.000-0.034) ng/mL 09/18/24 09/18/24 Range/Units 02:36 13:21 Troponin I 11.400 H* D 15.200 H* (0.000-0.034) ng/mL Liver Function 09/17/24 09/18/24 Range/Units 15:22 13:21 Total Bilirubin 2.9 H 2.0 H (0.2-1.3) mg/dL AST 50 131 H (17-59) U/L ALT 24 30 (6-50) U/L Alkaline Phosphatase 95 61 (38-126) U/L Albumin 3.4 L 2.4 L (3.5-5.1) g/dL Urine 09/17/24 Range/Units 18:29 Urine Color Dark yellow (Yellow) Urine Appearance Turbid H (Clear) Urine pH 5.5 (5.0-9.0) Ur Specific [place] 1.018 (1.001-1.035) Urine Protein 1+ H (Negative) mg/dL Urine Glucose (UA) Negative (Negative) mg/dL
[2024-09-18 15:02] LABS: Cholesterol 122 mg/dL (0-200); HDL Direct 16 mg/dL; Triglycerides 161 mg/dL (<150)
[2024-09-18 15:13] LABS: LDL Cholesterol Direct 69 mg/dL
[2024-09-18 17:11] LABS: CRP 4.7 mg/dL (<1.0)
[2024-09-18 17:26] LABS: Procalcitonin 1.3 ng/mL
[2024-09-18 18:38] LABS: Hematocrit 25.5 % (42.0-52.0); Hemoglobin 8.4 g/dL (14.0-18.0)
[2024-09-18 18:45] LABS: Potassium 3.1 mmol/L (3.4-5.0)
[2024-09-18] MEDS: POTASSIUM CHLORIDE 20 MEQ PACKET (FOR LIQUID) 60 MEQ PO (18:57)
[2024-09-18] MEDS: METOPROLOL TARTRATE 12.5 MG TABLET PO (20:30)
[2024-09-18] MEDS: MESALAMINE 400 MG DELAYED RELEASE CAPSULE 800 MG PO (22:00)
[2024-09-19] VITALS (16 sets, daily range): BP systolic 94–114; BP diastolic 50–71; PULSE 81–110; RESP 16–30; TEMP 36.6–37.1; O2SAT 92–96
[2024-09-19] MEDS: LACTATED RINGERS 1,000 ML 125 ML IV CONT (01:28)
[2024-09-19 02:45] LABS: Hematocrit 28.6 % (42.0-52.0); Hemoglobin 9.5 g/dL (14.0-18.0)
[2024-09-19] MEDS: CEFEPIME 2 GM/NS 50 ML 2 GM/50 ML BAG IVPB ×3 (05:37→21:40)
[2024-09-19 06:08] LABS: Estimated CRCL calculation 86 ml/min; Estimated Glomerular Filt Rate > 60
[2024-09-19 06:19] LABS: Vancomycin Trough 19.7 ug/mL (10.0-20.0)
[2024-09-19] MEDS: METOPROLOL TARTRATE 12.5 MG TABLET PO (08:38)
[2024-09-19] MEDS: ATORVASTATIN 40 MG TABLET PO (08:38)
[2024-09-19] MEDS: MESALAMINE 400 MG DELAYED RELEASE CAPSULE 800 MG PO ×3 (08:38→18:12)
[2024-09-19] MEDS: SODIUM CHLORIDE 1 GM TABLET PO ×2 (08:38→18:12)
[2024-09-19 08:56] LABS: Hematocrit 30.2 % (42.0-52.0); Mean Corpuscular HGB Conc 33.1 g/dl (32-36); Mean Corpuscular Hemoglobin 29.7 pg (26-34); Mean Corpuscular Volume 89.6 fl (80-100); Platelet Count Result 274 k/mm3 (150-375); Red Blood Count 3.37 M/mm3 (4.6-6.20); Red Cell Distribution Width 17.4 % (11.5-14.5); White Blood Count 7.1 K/mm3 (4.5-10.0)
[2024-09-19 09:08] LABS: Alanine Aminotransferase 34 U/L (6-50); Albumin Level 2.6 g/dL (3.5-5.1); Alkaline Phosphatase 65 U/L (38-126); Anion Gap 10 mmol/L (4-12); Aspartate Amino Transferase 127 U/L (17-59); Bilirubin,Total 1.9 mg/dL (0.2-1.3); Blood Urea Nitrogen 23 mg/dL (9-20); Calcium 7.3 mg/dL (8.4-10.2); Carbon Dioxide 20 mmol/L (22-30); Chloride 104 mmol/L (98-107); Estimated CRCL calculation 91 ml/min; Estimated Glomerular Filt Rate > 60; Glucose 120 mg/dL (65-110); Potassium 3.5 mmol/L (3.4-5.0); Sodium 134 mmol/L (137-145)
[2024-09-19 09:09] LABS: Magnesium 1.9 mg/dL (1.6-2.3)
--- NOTE | 2024-09-19 10:07 | PM.PNCARD ---
Progress Note: A&P Assessment and Plan (1) Non-STEMI (non-ST elevated myocardial infarction): Code(s): I21.4 - Non-ST elevation (NSTEMI) myocardial infarction Status: Acute Assessment and Plan: Difficult situation given the hemoglobin and severe and acute anemia. With heparin, hemoglobin dropped to 5. EKG has improved with blood. Hemoglobin now 10. Continue atorvastatin 40 mg daily. Echo pending. He has no active chest pain. Will increase his metoprolol to 25 mg p.o. b.i.d.. Workup for anemia should be initiated and obviously given the severe acute anemia, there will be no plans to take him to the cardiac catheterization lab at this point. No aspirin or heparin will be given either. I did talk this over with hospitalist as well as talk to the patient's aunt. Repeat ECG in a.m.. GI involved. He has received multiple units of blood and appears a bit tachypneic. Will give 40 mg IV furosemide x1 (2) Lactic acidosis: Code(s): E87.20 - Acidosis, unspecified Status: Acute Assessment and Plan: Improving (3) Acute on chronic blood loss anemia: Code(s): D62 - Acute posthemorrhagic anemia Status: Acute Assessment and Plan: Hemoglobin 10. Follow H&H. Hospitalist involved and treating. Will give 40 mg IV Lasix x1. (4) Syncope: Qualifiers: Syncope type: unspecified Qualified Code(s): R55 - Syncope and collapse Code(s): R55 - Syncope and collapse Status: Acute Assessment and Plan: His syncope is worrisome for t arrhythmogenic etiology. Continue telemetry Subjective Date/time seen: 09/19/24 10:07 Interval history: 59-year-old male with past medical history intellectual disability, hydrocephalus, obesity, and recent hospitalization at [place] 09/03/2024 through 09/14/2024 for dehydration, suspected GI bleed with symptomatic anemia, following a fall at home with 2 days on the floor who presented to the ER from [facility] nursing and rehab due to syncopal event during physical therapy. Date of service 09/19/2024: He denies shortness of breath or chest pain. No swelling. Watching TV and eating his breakfast. Review of Systems Review of Systems: All systems reviewed & are unremarkable except as noted in HPI and below Constitutional: Constitutional: Denies body ache(s) and Denies excessive sweating Eyes: Eyes: Denies blurry vision ENT: Denies Normal hearing present Cardiovascular: Cardiovascular: Denies chest pain Respiratory: Respiratory: Denies hemoptysis Gastrointestinal: Gastrointestinal: Denies abdominal pain Genitourinary: Genitourinary: Denies hematuria Musculoskeletal: Musculoskeletal: Denies back pain Integumentary/Breasts: Skin/Breast: Denies dry skin Neurologic: Denies Normal hearing present and Denies Abnormal speech present Psychiatric: Psychiatric: Denies anxiety Endocrine: Endocrine: Denies excessive sweating Hematologic/Lymphatic: Hematologic/Lymphatic: Denies easy bleeding Allergic/Immunologic: Allergic/Immunologic: Denies GI upset with certain foods Exam Narrative: Awake alert oriented. Appears stated age. Unkempt. Objectively appears short of breath Const: General: comfortable and no acute distress HENMT: Ears: TM's normal bilaterally Face/Nose/Sinus: Normal nares present Eyes: General: appearance normal, both eyes and all related structures Sclera: sclerae normal Neck: Neck: supple and no JVD Chest: Other: No reproducible chest wall pain to palpation Resp: Auscultation: wheezes Other: Tachypneic Cardio: Rate: regular rate Rhythm: regular rhythm Heart sounds: no murmurs GI: Inspection: non-distended Auscultation: normal bowel sounds Skin: General skin exam: normal color Neuro: Cranial nerves: No Normal hearing present Speech: normal speech and No Abnormal speech present Sensory Exam: normal sensation Extrem: General: normal to inspection Psych: Mental Status: mental status grossly normal Objective Data Vital Signs Vital Signs: Vital Signs - 24 hr 09/18/24 10:46 09/18/24 11:42 09/18/24 11:52 Temperature 37.4 C 36.1 C L Pulse Rate 105 H 105 H 105 H Respiratory Rate 28 H 18 16 Blood Pressure 96/74 L 113/62 113/62 Pulse Oximetry 95 95 95 Oxygen Delivery Oxygen Flow Rate Fraction of Inspired Oxygen 09/18/24 12:00 09/18/24 12:00 09/18/24 14:00 Temperature Pulse Rate 105 H 101 H 104 H Respiratory Rate 16 Blood Pressure Pulse Oximetry 95 Oxygen Delivery Room Air Oxygen Flow Rate Fraction of Inspired Oxygen 09/18/24 14:14 09/18/24 16:00 09/18/24 16:00 Temperature 36.6 C Pulse Rate 108 H 100 Respiratory Rate 16 24 H Blood Pressure 123/54 L 110/54 L Pulse Oximetry 98 95 Oxygen Delivery Room Air Oxygen Flow Rate Fraction of Inspired Oxygen 09/18/24 16:00 09/18/24 16:05 09/18/24 16:20 Temperature 37.7 C H 37.8 C H Pulse Rate 105 H 106 H 108 H Respiratory Rate 26 H 20 Blood Pressure 110/54 L 126/61 Pulse Oximetry 98 95 Oxygen Delivery Oxygen Flow Rate Fraction of Inspired Oxygen 09/18/24 17:15 09/18/24 18:46 09/18/24 20:00 Temperature 37.0 C 36.6 C Pulse Rate 100 99 106 H Respiratory Rate 24 H 16 Blood Pressure 107/55 L 121/62 Pulse Oximetry 95 96 Oxygen Delivery Oxygen Flow Rate Fraction of Inspired Oxygen 09/18/24 20:00 09/18/24 20:00 09/18/24 20:30 Temperature Pulse Rate 101 H 109 H Respiratory Rate Blood Pressure Pulse Oximetry 90 Oxygen Delivery Room Air Oxygen Flow Rate Fraction of Inspired Oxygen 09/18/24 21:57 09/18/24 22:00 09/18/24 22:13 Temperature 36.9 C 37.1 C Pulse Rate 98 94 93 Respiratory Rate 30 H 26 H Blood Pressure 93/79 L 91/57 L Pulse Oximetry 93 93 Oxygen Delivery Oxygen Flow Rate Fraction of Inspired Oxygen 09/18/24 22:51 09/18/24 23:13 09/19/24 00:00 Temperature 36.8 C 37.3 C 36.8 C Pulse Rate 92 93 91 Respiratory Rate 26 H 26 H 30 H Blood Pressure 96/55 L 111/69 96/67 L Pulse Oximetry 90 93 92 Oxygen Delivery Oxygen Flow Rate Fraction of Inspired Oxygen 09/19/24 00:00 09/19/24 00:00 09/19/24 00:13 Temperature 36.8 C Pulse Rate 92 91 Respiratory Rate 30 H Blood Pressure 96/67 L Pulse Oximetry 92 92 Oxygen Delivery Nasal Cannula Oxygen Flow Rate 3 Fraction of Inspired Oxygen 09/19/24 01:00 09/19/24 01:26 09/19/24 02:00 Temperature 37.0 C 36.8 C Pulse Rate 96 92 93 Respiratory Rate 28 H 24 H Blood Pressure 98/56 L 106/50 L Pulse Oximetry 92 96 Oxygen Delivery Oxygen Flow Rate Fraction of Inspired Oxygen 09/19/24 04:00 09/19/24 04:00 09/19/24 04:00 Temperature 36.8 C Pulse Rate 93 96 Respiratory Rate 24 H Blood Pressure 108/59 L Pulse Oximetry 92 92 Oxygen Delivery Nasal Cannula Oxygen Flow Rate 3 Fraction of Inspired Oxygen 09/19/24 06:00 09/19/24 07:56 09/19/24 08:00 Temperature 36.8 C Pulse Rate 92 92 102 H Respiratory Rate 20 28 H Blood Pressure 114/63 Pulse Oximetry 94 93 Oxygen Delivery Nasal Cannula Oxygen Flow Rate 3 Fraction of Inspired Oxygen 32 09/19/24 08:38 Temperature Pulse Rate 93 Respiratory Rate Blood Pressure Pulse Oximetry Oxygen Delivery Oxygen Flow Rate Fraction of Inspired Oxygen Intake/Output Intake/Output: Intake & Output 09/16/24 09/17/24 09/18/24 09/19/24 23:59 23:59 23:59 23:59 Intake Total 4550 4105.9 2200 Output Total 525 1750 2000 Balance 4025 2355.9 200 Meds/Results Medications: Active Medications Generic Name Dose Route Start Last Admin Trade Name Freq PRN Reason Stop Dose Admin Acetaminophen 650 mg 09/17/24 21:05 Acetaminophen 325 Mg Tablet PO Q4H PRN Mild Pain (1-3) or Fever Atorvastatin Calcium 40 mg 09/19/24 09:00 09/19/24 08:38 Atorvastatin 40 Mg Tablet PO 40 mg DAILY KRISTINE Administration Lactated Ringer's 1,000 mls @ 125 mls/hr 09/17/24 21:05 09/19/24 01:28 Lr - Lactated Ringers Iv IV CONT 125 mls/hr .Q8H KRISTINE Administration Remdesivir 100 mg in 250 mls @ 250 mls/hr 09/19/24 10:00 IVPB 09/22/24 10:59 Q24H KRISTINE Cefepime HCl 2 gm in 50 mls @ 100 mls/hr 09/18/24 05:00 09/19/24 05:37 Maxipime 2 Gm/Ns 50 Ml IVPB 100 mls/hr Q8H KRISTINE Administration Mesalamine 800 mg 09/18/24 20:40 09/19/24 08:38 Mesalamine 400 Mg Delayed Release Capsule PO 800 mg TID KRISTINE Administration Metoprolol Tartrate 12.5 mg 09/18/24 21:00 09/19/24 08:38 Metoprolol Tartrate 12.5 Mg Tablet PO 12.5 mg Q12HR KRISTINE Administration Ondansetron HCl 4 mg 09/17/24 21:05 Ondansetron Inj 4 Mg/2 Ml Vial IV PUSH Q4H PRN Nausea Perflutren Lipid Microsphere 0 ml 09/18/24 14:11 Perflutren Lipid Microspheres 1.5 Ml Vial Diluted To 10 Ml Total Volume IV PUSH 09/21/24 14:11 ONCE PRN adequate visualization Protocol Sodium Chloride 1 gm 09/18/24 09:00 09/19/24 08:38 Sodium Chloride 1 Gm Tablet PO 1 gm BID KRISTINE Administration Radiology Results: ITS Impressions Head CT 09/17/24 17:39 IMPRESSION: No acute intracranial findings. Chest/Abdomen/Pelvis CTA 09/17/24 17:45 IMPRESSION: CHEST: 1. No pulmonary embolism. 2. No acute cardiopulmonary pathology. ABDOMEN/PELVIS: 1. No evidence of appendicitis, diverticulitis or intestinal obstruction. 2. Possible right kidney lower pole a stone versus early contrast excretion. Follow-up advised. 3. Slightly thickened wall of the urinary bladder with surrounding fat stranding suggestive of cystitis. 4. Tiny hypodensity in the liver most likely tiny cysts. 5. Bilateral fat containing inguinal hernias. Labs Labs: Laboratory Results - last 24 hr 09/18/24 09/18/24 09/18/24 02:36 09:47 11:56 WBC RBC Hgb Hct MCV MCH MCHC RDW Plt Count MPV Immature Gran % (Auto) Neut % (Auto) Lymph % (Auto) [place] % (Auto) Eos % (Auto) Baso % (Auto) Lymph # (Auto) [place] # (Auto) Eos # (Auto) Baso # (Auto) Abs Immat Gran (auto) Absolute Neuts (auto) Absolute Nucleated RBC Nucleated RBC % Absolute Retic Percent Retic Immature Retic Fraction Retic Hgb Content PT INR APTT Sodium Potassium Chloride Carbon Dioxide Anion Gap BUN Creatinine Estim Creat Clear Calc Estimated GFR Glucose Calcium Magnesium Iron 35 L TIBC 196 L % Saturation 18 L Total Bilirubin Indirect Bilirubin 1.1 AST ALT Alkaline Phosphatase Lactate Dehydrogenase 423 H Troponin I C-Reactive Protein Total Protein Albumin Triglycerides Cholesterol LDL Cholesterol Direct HDL Direct Vitamin B12 530.0 Folate 2.7 L Procalcitonin Nasal MRSA (PCR) Not detected Vancomycin Trough Blood Type O Negative Antibody Screen Negative Crossmatch See Detail 09/18/24 09/18/24 09/18/24 12:40 13:21 16:45 WBC 4.0 L RBC 2.41 L Hgb 6.8 L* Hct 21.1 L MCV 87.6 MCH 28.2 MCHC 32.2 RDW 16.0 H Plt Count 251 MPV 9.0 Immature Gran % (Auto) 0.5 Neut % (Auto) 63.9 Lymph % (Auto) 23.7 [place] % (Auto) 11.1 H Eos % (Auto) 0.0 Baso % (Auto) 0.8 Lymph # (Auto) 0.94 [place] # (Auto) 0.4 Eos # (Auto) 0.0 Baso # (Auto) 0.0 Abs Immat Gran (auto) 0.02 Absolute Neuts (auto) 2.5 Absolute Nucleated RBC 0.000 Nucleated RBC % 0.0 Absolute Retic 0.09 Percent Retic 3.68 Immature Retic Fraction 20.3 H Retic Hgb Content 25.9 L PT 20.3 H INR 1.7 APTT 45.8 H Sodium 133 L Potassium 3.3 L Chloride 103 Carbon Dioxide 19 L Anion Gap 11 BUN 20 Creatinine 0.82 Estim Creat Clear Calc 101 Estimated GFR > 60 Glucose 131 H Calcium 7.1 L Magnesium 1.9 Iron TIBC % Saturation Total Bilirubin 2.0 H Indirect Bilirubin AST 131 H ALT 30 Alkaline Phosphatase 61 Lactate Dehydrogenase Troponin I 15.200 H* C-Reactive Protein 4.7 H Total Protein 5.0 L Albumin 2.4 L Triglycerides 161 H Cholesterol 122 LDL Cholesterol Direct 69 HDL Direct 16 Vitamin B12 Folate Procalcitonin 1.3 Nasal MRSA (PCR) Vancomycin Trough Blood Type Antibody Screen Crossmatch 09/18/24 09/19/24 09/19/24 18:31 02:39 05:41 WBC RBC Hgb 8.4 L 9.5 L Hct 25.5 L 28.6 L MCV MCH MCHC RDW Plt Count MPV Immature Gran % (Auto) Neut % (Auto) Lymph % (Auto) [place] % (Auto) Eos % (Auto) Baso % (Auto) Lymph # (Auto) [place] # (Auto) Eos # (Auto) Baso # (Auto) Abs Immat Gran (auto) Absolute Neuts (auto) Absolute Nucleated RBC Nucleated RBC % Absolute Retic Percent Retic Immature Retic Fraction Retic Hgb Content PT INR APTT Sodium Potassium 3.1 L Chloride Carbon Dioxide Anion Gap BUN Creatinine 0.97 Estim Creat Clear Calc 86 Estimated GFR > 60 Glucose Calcium Magnesium Iron TIBC % Saturation Total Bilirubin Indirect Bilirubin AST ALT Alkaline Phosphatase Lactate Dehydrogenase Troponin I C-Reactive Protein Total Protein Albumin Triglycerides Cholesterol LDL Cholesterol Direct HDL Direct Vitamin B12 Folate Procalcitonin Nasal MRSA (PCR) Vancomycin Trough Blood Type Antibody Screen Crossmatch 09/19/24 09/19/24 05:42 08:51 WBC 7.1 RBC 3.37 L Hgb 10.0 L Hct 30.2 L MCV 89.6 MCH 29.7 D MCHC 33.1 RDW 17.4 H Plt Count 274 MPV 9.0 Immature Gran % (Auto) Neut % (Auto) Lymph % (Auto) [place] % (Auto) Eos % (Auto) Baso % (Auto) Lymph # (Auto) [place] # (Auto) Eos # (Auto) Baso # (Auto) Abs Immat Gran (auto) Absolute Neuts (auto) Absolute Nucleated RBC Nucleated RBC % Absolute Retic Percent Retic Immature Retic Fraction Retic Hgb Content PT INR APTT Sodium 134 L Potassium 3.5 Chloride 104 Carbon Dioxide 20 L Anion Gap 10 BUN 23 H Creatinine 0.93 Estim Creat Clear Calc 91 Estimated GFR > 60 Glucose 120 H Calcium 7.3 L Magnesium 1.9 Iron TIBC % Saturation Total Bilirubin 1.9 H Indirect Bilirubin AST 127 H ALT 34 Alkaline Phosphatase 65 Lactate Dehydrogenase Troponin I C-Reactive Protein Total Protein 6.0 L Albumin 2.6 L Triglycerides Cholesterol LDL Cholesterol Direct HDL Direct Vitamin B12 Folate Procalcitonin Nasal MRSA (PCR) Vancomycin Trough 19.7 Blood Type Antibody Screen Crossmatch
[2024-09-19] MEDS: POTASSIUM CHLORIDE 20 MEQ PACKET (FOR LIQUID) 40 MEQ PO (11:43)
[2024-09-19] MEDS: REMDESIVIR 100 MG/NS 250 ML 100 MG/250 ML BAG 250 MG IVPB (11:43)
[2024-09-19] MEDS: FUROSEMIDE INJ 40 MG/4 ML VIAL IV PUSH (11:43)
--- NOTE | 2024-09-19 12:34 | WPDGIPROGNO ---
Progress Note: A&P Assessment and Plan (1) Anemia: Code(s): D64.9 - Anemia, unspecified Status: Acute (2) Ulcerative colitis: Code(s): K51.90 - Ulcerative colitis, unspecified, without complications Status: Acute Assessment and Plan: This patient has a history of ulcerative colitis, as per recent report obtained from another institution. A stool calprotectin level, collected yesterday, will aid in quantifying the degree of mucosal inflammation. The patient's iron deficiency anemia can be adequately explained by the poorly controlled ulcerative colitis. However, the presence of elevated LDH, increased reticulocyte count, and slightly elevated indirect bilirubin raises concern for a concurrent hemolytic anemia. A Epdro test and hematology consultation are indicated, as discussed with the hospitalist. Mesalamine 3g/day was started yesterday. The decision regarding biologic therapy will be made following review of the calprotectin results and clinical course. There is no acute bleeding, therefore repeat endoscopy or colonoscpy is not indicated at this time. Subjective Date/time seen: 09/19/24 12:34 Interval history: The patient feels better, no abdominal pain, no diarrhea. Yesterday he had only 2 small bowel movements, pasty consistent, enough to obtain samples for calprotectin and culture. Exam Narrative: Awake alert oriented. Appears stated age. Unkempt. Objectively appears short of breath Const: General: comfortable and no acute distress HENMT: Ears: TM's normal bilaterally Face/Nose/Sinus: Normal nares present Eyes: General: appearance normal, both eyes and all related structures Sclera: sclerae normal Neck: Neck: supple and no JVD Chest: Other: No reproducible chest wall pain to palpation Resp: Auscultation: wheezes Other: Tachypneic Cardio: Rate: regular rate Rhythm: regular rhythm Heart sounds: no murmurs GI: Inspection: non-distended Auscultation: normal bowel sounds Skin: General skin exam: normal color Neuro: Cranial nerves: No Normal hearing present Speech: normal speech and No Abnormal speech present Sensory Exam: normal sensation Extrem: General: normal to inspection Psych: Mental Status: mental status grossly normal Objective Data Vital Signs Vital Signs: Vital Signs - 24 hr 09/18/24 14:00 09/18/24 14:14 09/18/24 16:00 Temperature 98 F Pulse Rate 104 H 108 H Respiratory Rate 16 Blood Pressure 123/54 L 110/54 L Pulse Oximetry 98 Oxygen Delivery Oxygen Flow Rate Fraction of Inspired Oxygen 09/18/24 16:00 09/18/24 16:00 09/18/24 16:05 Temperature 99.9 F H Pulse Rate 100 105 H 106 H Respiratory Rate 24 H 26 H Blood Pressure 110/54 L Pulse Oximetry 95 98 Oxygen Delivery Room Air Oxygen Flow Rate Fraction of Inspired Oxygen 09/18/24 16:20 09/18/24 17:15 09/18/24 18:46 Temperature 100.0 F H 98.6 F Pulse Rate 108 H 100 99 Respiratory Rate 20 24 H Blood Pressure 126/61 107/55 L Pulse Oximetry 95 95 Oxygen Delivery Oxygen Flow Rate Fraction of Inspired Oxygen 09/18/24 20:00 09/18/24 20:00 09/18/24 20:00 Temperature 97.9 F Pulse Rate 106 H 101 H Respiratory Rate 16 Blood Pressure 121/62 Pulse Oximetry 96 90 Oxygen Delivery Room Air Oxygen Flow Rate Fraction of Inspired Oxygen 09/18/24 20:30 09/18/24 21:57 09/18/24 22:00 Temperature 98.5 F Pulse Rate 109 H 98 94 Respiratory Rate 30 H Blood Pressure 93/79 L Pulse Oximetry 93 Oxygen Delivery Oxygen Flow Rate Fraction of Inspired Oxygen 09/18/24 22:13 09/18/24 22:51 09/18/24 23:13 Temperature 98.7 F 98.3 F 99.2 F Pulse Rate 93 92 93 Respiratory Rate 26 H 26 H 26 H Blood Pressure 91/57 L 96/55 L 111/69 Pulse Oximetry 93 90 93 Oxygen Delivery Oxygen Flow Rate Fraction of Inspired Oxygen 09/19/24 00:00 09/19/24 00:00 09/19/24 00:00 Temperature 98.2 F Pulse Rate 91 92 Respiratory Rate 30 H Blood Pressure 96/67 L Pulse Oximetry 92 92 Oxygen Delivery Nasal Cannula Oxygen Flow Rate 3 Fraction of Inspired Oxygen 09/19/24 00:13 09/19/24 01:00 09/19/24 01:26 Temperature 98.2 F 98.6 F 98.2 F Pulse Rate 91 96 92 Respiratory Rate 30 H 28 H 24 H Blood Pressure 96/67 L 98/56 L 106/50 L Pulse Oximetry 92 92 96 Oxygen Delivery Oxygen Flow Rate Fraction of Inspired Oxygen 09/19/24 02:00 09/19/24 04:00 09/19/24 04:00 Temperature 98.2 F Pulse Rate 93 93 Respiratory Rate 24 H Blood Pressure 108/59 L Pulse Oximetry 92 92 Oxygen Delivery Nasal Cannula Oxygen Flow Rate 3 Fraction of Inspired Oxygen 09/19/24 04:00 09/19/24 06:00 09/19/24 07:56 Temperature Pulse Rate 96 92 92 Respiratory Rate 20 Blood Pressure Pulse Oximetry 94 Oxygen Delivery Nasal Cannula Oxygen Flow Rate 3 Fraction of Inspired Oxygen 32 09/19/24 08:00 09/19/24 08:00 09/19/24 08:38 Temperature 98.3 F Pulse Rate 102 H 93 Respiratory Rate 28 H Blood Pressure 114/63 Pulse Oximetry 93 93 Oxygen Delivery Nasal Cannula Oxygen Flow Rate 3 Fraction of Inspired Oxygen 09/19/24 12:00 Temperature 97.8 F Pulse Rate 86 Respiratory Rate 22 H Blood Pressure 94/61 L Pulse Oximetry 96 Oxygen Delivery Oxygen Flow Rate Fraction of Inspired Oxygen Intake/Output Intake/Output: Intake & Output 09/16/24 09/17/24 09/18/24 09/19/24 23:59 23:59 23:59 23:59 Intake Total 4550 4105.9 2250 Output Total 525 1750 2000 Balance 4025 2355.9 250 Meds/Results Medications: Active Medications Generic Name Dose Route Start Last Admin Trade Name Freq PRN Reason Stop Dose Admin Acetaminophen 650 mg 09/17/24 21:05 Acetaminophen 325 Mg Tablet PO Q4H PRN Mild Pain (1-3) or Fever Atorvastatin Calcium 40 mg 09/19/24 09:00 09/19/24 08:38 Atorvastatin 40 Mg Tablet PO 40 mg DAILY KRISTINE Administration Remdesivir 100 mg in 250 mls @ 250 mls/hr 09/19/24 10:00 09/19/24 11:43 IVPB 09/22/24 10:59 250 mls/hr Q24H KRISTINE Administration Cefepime HCl 2 gm in 50 mls @ 100 mls/hr 09/18/24 05:00 09/19/24 12:00 Maxipime 2 Gm/Ns 50 Ml IVPB 100 mls/hr Q8H KRISTINE Administration Mesalamine 800 mg 09/18/24 20:40 09/19/24 12:00 Mesalamine 400 Mg Delayed Release Capsule PO 800 mg TID KRISTINE Administration Metoprolol Tartrate 25 mg 09/19/24 21:00 Metoprolol Tartrate 25 Mg Tablet PO Q12HR KRISTINE Ondansetron HCl 4 mg 09/17/24 21:05 Ondansetron Inj 4 Mg/2 Ml Vial IV PUSH Q4H PRN Nausea Perflutren Lipid Microsphere 0 ml 09/18/24 14:11 Perflutren Lipid Microspheres 1.5 Ml Vial Diluted To 10 Ml Total Volume IV PUSH 09/21/24 14:11 ONCE PRN adequate visualization Protocol Sodium Chloride 1 gm 09/18/24 09:00 09/19/24 08:38 Sodium Chloride 1 Gm Tablet PO 1 gm BID KRISTINE Administration Radiology Results: ITS Impressions Head CT 09/17/24 17:39 IMPRESSION: No acute intracranial findings. Chest/Abdomen/Pelvis CTA 09/17/24 17:45 IMPRESSION: CHEST: 1. No pulmonary embolism. 2. No acute cardiopulmonary pathology. ABDOMEN/PELVIS: 1. No evidence of appendicitis, diverticulitis or intestinal obstruction. 2. Possible right kidney lower pole a stone versus early contrast excretion. Follow-up advised. 3. Slightly thickened wall of the urinary bladder with surrounding fat stranding suggestive of cystitis. 4. Tiny hypodensity in the liver most likely tiny cysts. 5. Bilateral fat containing inguinal hernias. Labs Labs: Laboratory Results - last 24 hr 09/18/24 09/18/24 09/18/24 02:36 11:56 12:40 WBC 4.0 L RBC 2.41 L Hgb 6.8 L* Hct 21.1 L MCV 87.6 MCH 28.2 MCHC 32.2 RDW 16.0 H Plt Count 251 MPV 9.0 Immature Gran % (Auto) 0.5 Neut % (Auto) 63.9 Lymph % (Auto) 23.7 [place] % (Auto) 11.1 H Eos % (Auto) 0.0 Baso % (Auto) 0.8 Lymph # (Auto) 0.94 [place] # (Auto) 0.4 Eos # (Auto) 0.0 Baso # (Auto) 0.0 Abs Immat Gran (auto) 0.02 Absolute Neuts (auto) 2.5 Absolute Nucleated RBC 0.000 Nucleated RBC % 0.0 Absolute Retic Percent Retic Immature Retic Fraction Retic Hgb Content PT INR APTT Sodium Potassium Chloride Carbon Dioxide Anion Gap BUN Creatinine Estim Creat Clear Calc Estimated GFR Glucose Calcium Magnesium % Saturation 18 L Total Bilirubin AST ALT Alkaline Phosphatase Troponin I C-Reactive Protein Total Protein Albumin Triglycerides Cholesterol LDL Cholesterol Direct HDL Direct Vitamin B12 530.0 Folate 2.7 L Procalcitonin Vancomycin Trough Blood Type O Negative Antibody Screen Negative Crossmatch See Detail 09/18/24 09/18/24 09/18/24 13:21 16:45 18:31 WBC RBC Hgb 8.4 L Hct 25.5 L MCV MCH MCHC RDW Plt Count MPV Immature Gran % (Auto) Neut % (Auto) Lymph % (Auto) [place] % (Auto) Eos % (Auto) Baso % (Auto) Lymph # (Auto) [place] # (Auto) Eos # (Auto) Baso # (Auto) Abs Immat Gran (auto) Absolute Neuts (auto) Absolute Nucleated RBC Nucleated RBC % Absolute Retic 0.09 Percent Retic 3.68 Immature Retic Fraction 20.3 H Retic Hgb Content 25.9 L PT 20.3 H INR 1.7 APTT 45.8 H Sodium 133 L Potassium 3.3 L 3.1 L Chloride 103 Carbon Dioxide 19 L Anion Gap 11 BUN 20 Creatinine 0.82 Estim Creat Clear Calc 101 Estimated GFR > 60 Glucose 131 H Calcium 7.1 L Magnesium 1.9 % Saturation Total Bilirubin 2.0 H AST 131 H ALT 30 Alkaline Phosphatase 61 Troponin I 15.200 H* C-Reactive Protein 4.7 H Total Protein 5.0 L Albumin 2.4 L Triglycerides 161 H Cholesterol 122 LDL Cholesterol Direct 69 HDL Direct 16 Vitamin B12 Folate Procalcitonin 1.3 Vancomycin Trough Blood Type Antibody Screen Crossmatch 09/19/24 09/19/24 09/19/24 02:39 05:41 05:42 WBC RBC Hgb 9.5 L Hct 28.6 L MCV MCH MCHC RDW Plt Count MPV Immature Gran % (Auto) Neut % (Auto) Lymph % (Auto) [place] % (Auto) Eos % (Auto) Baso % (Auto) Lymph # (Auto) [place] # (Auto) Eos # (Auto) Baso # (Auto) Abs Immat Gran (auto) Absolute Neuts (auto) Absolute Nucleated RBC Nucleated RBC % Absolute Retic Percent Retic Immature Retic Fraction Retic Hgb Content PT INR APTT Sodium Potassium Chloride Carbon Dioxide Anion Gap BUN Creatinine 0.97 Estim Creat Clear Calc 86 Estimated GFR > 60 Glucose Calcium Magnesium % Saturation Total Bilirubin AST ALT Alkaline Phosphatase Troponin I C-Reactive Protein Total Protein Albumin Triglycerides Cholesterol LDL Cholesterol Direct HDL Direct Vitamin B12 Folate Procalcitonin Vancomycin Trough 19.7 Blood Type Antibody Screen Crossmatch 09/19/24 08:51 WBC 7.1 RBC 3.37 L Hgb 10.0 L Hct 30.2 L MCV 89.6 MCH 29.7 D MCHC 33.1 RDW 17.4 H Plt Count 274 MPV 9.0 Immature Gran % (Auto) Neut % (Auto) Lymph % (Auto) [place] % (Auto) Eos % (Auto) Baso % (Auto) Lymph # (Auto) [place] # (Auto) Eos # (Auto) Baso # (Auto) Abs Immat Gran (auto) Absolute Neuts (auto) Absolute Nucleated RBC Nucleated RBC % Absolute Retic Percent Retic Immature Retic Fraction Retic Hgb Content PT INR APTT Sodium 134 L Potassium 3.5 Chloride 104 Carbon Dioxide 20 L Anion Gap 10 BUN 23 H Creatinine 0.93 Estim Creat Clear Calc 91 Estimated GFR > 60 Glucose 120 H Calcium 7.3 L Magnesium 1.9 % Saturation Total Bilirubin 1.9 H AST 127 H ALT 34 Alkaline Phosphatase 65 Troponin I C-Reactive Protein Total Protein 6.0 L Albumin 2.6 L Triglycerides Cholesterol LDL Cholesterol Direct HDL Direct Vitamin B12 Folate Procalcitonin Vancomycin Trough Blood Type Antibody Screen Crossmatch
--- NOTE | 2024-09-19 15:16 | P.PNIM_ITS ---
Progress Note: A&P Assessment and Plan (1) Non-STEMI (non-ST elevated myocardial infarction): Code(s): I21.4 - Non-ST elevation (NSTEMI) myocardial infarction Status: Acute (2) Demand ischemia: Code(s): I24.89 - Other forms of acute ischemic heart disease Status: Acute (3) Hyponatremia: Code(s): E87.1 - Hypo-osmolality and hyponatremia Status: Acute (4) Mass of left ear canal: Code(s): H93.8X2 - Other specified disorders of left ear Status: Acute (5) GERD with esophagitis: Qualifiers: Esophagitis bleeding: unspecified whether hemorrhage Qualified Code(s): K21.00 - Gastro-esophageal reflux disease with esophagitis, without bleeding Code(s): K21.00 - Gastro-esophageal reflux disease with esophagitis, without bleeding Status: Acute (6) Urinary tract infection: Qualifiers: Hematuria presence: without hematuria Urinary tract infection type: acute cystitis Qualified Code(s): N30.00 - Acute cystitis without hematuria Code(s): N39.0 - Urinary tract infection, site not specified Status: Acute (7) Acute on chronic blood loss anemia: Code(s): D62 - Acute posthemorrhagic anemia Status: Acute (8) COVID-19: Code(s): U07.1 - COVID-19 Status: Acute Plan Urosepsis Central line placed BP stable received bolus in ED No Vasopressors BC and UC pending Cefepime and Vancomycin Pending Nasal MRSA Acute on Chronic anemia Initially on Heparin drip but dc'ed due to drop in Hgb Monitor H and H Recent EGD and colonoscopy outside facility demonstrating severe erosive esophagitis and colitis. 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 Reports no chest pain.Target HgB 9. Review of Systems Review of Systems: The patient is a poor historian due to intellectual disability and hearing loss. He patient denies pain. He denies shortness of breast despite being obviously tachypneic in the ER. Exam 2 Narrative: Weight 106.2 kg BMI 36.7 Const: Other: Obese, disheveled, poor hygiene, strong body odor, appears older than stated age, acutely ill-appearing HENMT: Other: Poor dentition with multiple teeth broken off at the gumline, some small amount of oozing blood from the gums surrounding broken dentition, halitosis, Head is normocephalic atraumatic, pupils are equal and reactive, mild scleral icterus, positive conjunctival pallor, patient had moderate cerumen in both ears but cerumen from the left ear was easily were removed but there is a mass in the left ear canal that appeared moist and almost macerated. The left ear canal had some cerumen that partially obscured further visualization tympanic membrane was difficult to assess Eyes: Other: Mild scleral icterus, positive conjunctival pallor, pupils are equal and reactive Neck: Other: No thyromegaly, no JVD Resp: Other: Decreased breath sounds in the right lung base, tachypnea, no accessory muscle use, frequent cough Cardio: Other: Sinus tachycardia, 2+ bilateral radial pedal pulses GI: Other: Soft, obese, nontender, normoactive bowel sounds : Other: Circumcised male with To catheter in place with small amount of dark yellow turbid urine Skin: Other: 3-4 second cap refill, no mottling, warm to touch, diaphoretic, patient has thick yellow overgrown toenails some of which are curling, he has 3rd and feet kill a material noted under his fingernails with chronic discoloration Neuro: Other: Alert oriented to person, fact that he is in a hospital, the month and the name of the current president. He thought the year was 2004. He has no localizing neurologic deficits noted but his speech is slow. He has significant hearing loss bilaterally no gross motor deficits noted Extrem: Other: No clubbing, cyanosis or edema, he has 4/5 drip box tender strength bilaterally, he can lift both legs from the stretcher in hold them against resistance Psych: Other: Confused, pleasant and cooperative, poor judgment and insight Objective Data Vital Signs Vital Signs: Vital Signs - 24 hr 09/18/24 16:00 09/18/24 16:00 09/18/24 16:00 Temperature 98 F Pulse Rate 108 H 100 105 H Respiratory Rate 16 24 H Blood Pressure 110/54 L Pulse Oximetry 98 95 Oxygen Delivery Room Air Oxygen Flow Rate Fraction of Inspired Oxygen 09/18/24 16:05 09/18/24 16:20 09/18/24 17:15 Temperature 99.9 F H 100.0 F H 98.6 F Pulse Rate 106 H 108 H 100 Respiratory Rate 26 H 20 24 H Blood Pressure 110/54 L 126/61 107/55 L Pulse Oximetry 98 95 95 Oxygen Delivery Oxygen Flow Rate Fraction of Inspired Oxygen 09/18/24 18:46 09/18/24 20:00 09/18/24 20:00 Temperature 97.9 F Pulse Rate 99 106 H Respiratory Rate 16 Blood Pressure 121/62 Pulse Oximetry 96 90 Oxygen Delivery Room Air Oxygen Flow Rate Fraction of Inspired Oxygen 09/18/24 20:00 09/18/24 20:30 09/18/24 21:57 Temperature 98.5 F Pulse Rate 101 H 109 H 98 Respiratory Rate 30 H Blood Pressure 93/79 L Pulse Oximetry 93 Oxygen Delivery Oxygen Flow Rate Fraction of Inspired Oxygen 09/18/24 22:00 09/18/24 22:13 09/18/24 22:51 Temperature 98.7 F 98.3 F Pulse Rate 94 93 92 Respiratory Rate 26 H 26 H Blood Pressure 91/57 L 96/55 L Pulse Oximetry 93 90 Oxygen Delivery Oxygen Flow Rate Fraction of Inspired Oxygen 09/18/24 23:13 09/19/24 00:00 09/19/24 00:00 Temperature 99.2 F 98.2 F Pulse Rate 93 91 Respiratory Rate 26 H 30 H Blood Pressure 111/69 96/67 L Pulse Oximetry 93 92 92 Oxygen Delivery Nasal Cannula Oxygen Flow Rate 3 Fraction of Inspired Oxygen 09/19/24 00:00 09/19/24 00:13 09/19/24 01:00 Temperature 98.2 F 98.6 F Pulse Rate 92 91 96 Respiratory Rate 30 H 28 H Blood Pressure 96/67 L 98/56 L Pulse Oximetry 92 92 Oxygen Delivery Oxygen Flow Rate Fraction of Inspired Oxygen 09/19/24 01:26 09/19/24 02:00 09/19/24 04:00 Temperature 98.2 F 98.2 F Pulse Rate 92 93 93 Respiratory Rate 24 H 24 H Blood Pressure 106/50 L 108/59 L Pulse Oximetry 96 92 Oxygen Delivery Oxygen Flow Rate Fraction of Inspired Oxygen 09/19/24 04:00 09/19/24 04:00 09/19/24 06:00 Temperature Pulse Rate 96 92 Respiratory Rate Blood Pressure Pulse Oximetry 92 Oxygen Delivery Nasal Cannula Oxygen Flow Rate 3 Fraction of Inspired Oxygen 09/19/24 07:56 09/19/24 08:00 09/19/24 08:00 Temperature 98.3 F Pulse Rate 92 102 H Respiratory Rate 20 28 H Blood Pressure 114/63 Pulse Oximetry 94 93 93 Oxygen Delivery Nasal Cannula Nasal Cannula Oxygen Flow Rate 3 3 Fraction of Inspired Oxygen 32 09/19/24 08:00 09/19/24 08:38 09/19/24 10:00 Temperature Pulse Rate 92 93 85 Respiratory Rate Blood Pressure Pulse Oximetry Oxygen Delivery Oxygen Flow Rate Fraction of Inspired Oxygen 09/19/24 12:00 09/19/24 12:00 09/19/24 12:00 Temperature 97.8 F Pulse Rate 86 86 Respiratory Rate 22 H Blood Pressure 94/61 L Pulse Oximetry 96 92 Oxygen Delivery Nasal Cannula Oxygen Flow Rate 3 Fraction of Inspired Oxygen 32 Intake/Output Intake/Output: Intake & Output 09/16/24 09/17/24 09/18/24 09/19/24 23:59 23:59 23:59 23:59 Intake Total 4550 4105.9 2250 Output Total 525 1750 2000 Balance 4025 2355.9 250 Meds/Results Medications: Active Medications Generic Name Dose Route Start Last Admin Trade Name Freq PRN Reason Stop Dose Admin Acetaminophen 650 mg 09/17/24 21:05 Acetaminophen 325 Mg Tablet PO Q4H PRN Mild Pain (1-3) or Fever Atorvastatin Calcium 40 mg 09/19/24 09:00 09/19/24 08:38 Atorvastatin 40 Mg Tablet PO 40 mg DAILY KRISTINE Administration Remdesivir 100 mg in 250 mls @ 250 mls/hr 09/19/24 10:00 09/19/24 11:43 IVPB 09/22/24 10:59 250 mls/hr Q24H KRISTINE Administration Cefepime HCl 2 gm in 50 mls @ 100 mls/hr 09/18/24 05:00 09/19/24 12:00 Maxipime 2 Gm/Ns 50 Ml IVPB 100 mls/hr Q8H KRISTINE Administration Mesalamine 800 mg 09/18/24 20:40 09/19/24 12:00 Mesalamine 400 Mg Delayed Release Capsule PO 800 mg TID KRISTINE Administration Metoprolol Tartrate 25 mg 09/19/24 21:00 Metoprolol Tartrate 25 Mg Tablet PO Q12HR [facility] Ondansetron HCl 4 mg 09/17/24 21:05 Ondansetron Inj 4 Mg/2 Ml Vial IV PUSH Q4H PRN Nausea Perflutren Lipid Microsphere 0 ml 09/18/24 14:11 Perflutren Lipid Microspheres 1.5 Ml Vial Diluted To 10 Ml Total Volume IV PUSH 09/21/24 14:11 ONCE PRN adequate visualization Protocol Sodium Chloride 1 gm 09/18/24 09:00 09/19/24 08:38 Sodium Chloride 1 Gm Tablet PO 1 gm BID KRISTINE Administration Radiology Results: ITS Impressions Head CT 09/17/24 17:39 IMPRESSION: No acute intracranial findings. Chest/Abdomen/Pelvis CTA 09/17/24 17:45 IMPRESSION: CHEST: 1. No pulmonary embolism. 2. No acute cardiopulmonary pathology. ABDOMEN/PELVIS: 1. No evidence of appendicitis, diverticulitis or intestinal obstruction. 2. Possible right kidney lower pole a stone versus early contrast excretion. Follow-up advised. 3. Slightly thickened wall of the urinary bladder with surrounding fat stranding suggestive of cystitis. 4. Tiny hypodensity in the liver most likely tiny cysts. 5. Bilateral fat containing inguinal hernias. Labs Labs: Laboratory Results - last 24 hr 09/18/24 09/18/24 09/18/24 02:36 16:45 18:31 WBC RBC Hgb 8.4 L Hct 25.5 L MCV MCH MCHC RDW Plt Count MPV Sodium Potassium 3.1 L Chloride Carbon Dioxide Anion Gap BUN Creatinine Estim Creat Clear Calc Estimated GFR Glucose Calcium Magnesium Total Bilirubin AST ALT Alkaline Phosphatase C-Reactive Protein 4.7 H Total Protein Albumin Procalcitonin 1.3 Vancomycin Trough Blood Type O Negative Antibody Screen Negative Crossmatch See Detail 09/19/24 09/19/24 09/19/24 02:39 05:41 05:42 WBC RBC Hgb 9.5 L Hct 28.6 L MCV MCH MCHC RDW Plt Count MPV Sodium Potassium Chloride Carbon Dioxide Anion Gap BUN Creatinine 0.97 Estim Creat Clear Calc 86 Estimated GFR > 60 Glucose Calcium Magnesium Total Bilirubin AST ALT Alkaline Phosphatase C-Reactive Protein Total Protein Albumin Procalcitonin Vancomycin Trough 19.7 Blood Type Antibody Screen Crossmatch 09/19/24 08:51 WBC 7.1 RBC 3.37 L Hgb 10.0 L Hct 30.2 L MCV 89.6 MCH 29.7 D MCHC 33.1 RDW 17.4 H Plt Count 274 MPV 9.0 Sodium 134 L Potassium 3.5 Chloride 104 Carbon Dioxide 20 L Anion Gap 10 BUN 23 H Creatinine 0.93 Estim Creat Clear Calc 91 Estimated GFR > 60 Glucose 120 H Calcium 7.3 L Magnesium 1.9 Total Bilirubin 1.9 H AST 127 H ALT 34 Alkaline Phosphatase 65 C-Reactive Protein Total Protein 6.0 L Albumin 2.6 L Procalcitonin Vancomycin Trough Blood Type Antibody Screen Crossmatch Quality VTE Prophylaxis VTE prophylaxis: mechanical ordered (SCDs) Hospitalist MIPS Advance Care Plan I have confirmed that the patient's Advanced Care Plan is present, code status is documented, or surrogate decision maker is listed in patient medical record.: Yes Medication Reconciliation I have utilized all available resources to obtain, update and review the patients current medications (includes all prescriptions, OTC, herbals, cannabis, and nutritional supplements).: Yes
[2024-09-19 15:27] LABS: Hematocrit 29.9 % (42.0-52.0); Hemoglobin 9.8 g/dL (14.0-18.0)
--- NOTE | 2024-09-19 17:40 | PC.NURSE ---
This patient, Pal Carolina, was transferred to [facility] on 09/19/24 at 1657. Personal belongings sent with patient. Report given to Kathleen. Appropriate documentation sent with patient. Shashi Stern RN
--- NOTE | 2024-09-19 17:42 | PC.NURSE ---
This patient, Pal Carolina, was received from [facility] on 09/19/24 at 1730. Patient/family oriented to unit policies and routines.
[2024-09-19] MEDS: METOPROLOL TARTRATE 25 MG TABLET PO (21:41)
[2024-09-20] VITALS (10 sets, daily range): BP systolic 92–100; BP diastolic 55–70; PULSE 70–77; RESP 16–18; TEMP 36.2–36.6; O2SAT 93–100
--- NOTE | 2024-09-20 | ECHO_ITS ---
Patient Info Name: Pal Carolina Age: 59 years : 1965 Gender: Male Ht: 67 in Wt: 234 lbs BSA: 2.28 m2 HR: 76 bpm BP: 95 / 65 mmHg Technical Quality: Good Exam Date: 09/20/2024 9:16 AM Exam Location: Echo Lab Patient Status: Inpatient Admit Date: 09/17/2024 Staff Ordering Physician: Migue Badillo MD Laborer [employer]: Daria Kim RDCS Attending Provider: Joselin Bernardo DO Referring Physician: Aby CROUCH; Exam Type: CA echo dop color flow w con Study Info Indications - Non-STEMI Complete two-dimentional, color flow and Doppler transthoracic echocardiogram is performed with agitated saline and with contrast to opacify the left ventricle and to improve the delineation of the left ventricle endocardial borders. Contrast/Agitated Saline Contrast/Ag. Saline: Definity Amount: 2.00 ml Existing IV Access: Yes IV Access Condition: patent with no signs of infiltration Summary 1. Technically difficult study with limited views. 2. The left ventricle is normal in size and low normal systolic function. The left ventricular ejection fraction is visually estimated to be 50%. 3. The aortic valve is trileaflet and opens well. There is mild aortic regurgitation. Left Ventricle The left ventricle is normal in size and low normal systolic function. The left ventricular ejection fraction is visually estimated to be 50%. Right Ventricle The right ventricle is normal in size and systolic function. Left Atria The left atrium is normal size. Right Atria The right atrium is normal size. Atrial Septum The atrial septum is not well visualized. Aortic Valve The aortic valve is trileaflet and opens well. There is mild aortic regurgitation. Pulmonic Valve The pulmonic valve is not well visualized. There is trace pulmonic valve regurgitation. Mitral Valve The mitral valve is normal. There is trace mitral regurgitation. Tricuspid Valve The tricuspid valve is normal. There is mild tricuspid regurgitation. Pericardium/Pleural Pericardium is normal in appearance with no evidence for significant pericardial effusion. Inferior Vena Cava Normal inferior vena cava with <50% collapse upon inspiration consistent with elevated right atrial pressure, 8 mmHg. Aorta The aortic root at the level of the sinus of Valsalva measures 3.6 cm in diameter. Left Ventricular Outflow Tract Name Value Normal LVOT 2D LVOT Diameter 1.86 cm LVOT Doppler LVOT Peak Gradient 3 mmHg LVOT Mean Gradient 2 mmHg LVOT VTI 14.98 cm LVOT VTI/AV VTI Ratio 0.68 LVOT Stroke Volume 40.76 ml LVOT CO 9.74 l/min LVOT CI 4.26 L/min/m2 Mitral Valve Name Value Normal MV Doppler MV Decel [place] 327.94 cm/s2 MV PHT 0 s MV Area (PHT) 3.11 cm2 4.00-5.00 MV Diastolic Function MV E Peak Velocity 79.88 cm/s MV A Peak Velocity 95.36 cm/s MV E/A 0.84 MV Decel Time 0 s MV Annular TDI MV E/e' (Septal) 12.15 <=8.00 MV E/e' (Lateral) 12.45 <=8.00 MV E/e' (Average) 12.30 Tricuspid Valve Name Value Normal TV Regurgitation Doppler TR Peak Velocity 263.46 cm/s TR Peak Gradient 25 mmHg Estimated PAP/RSVP RA Pressure 8 mmHg <=5 PA Systolic Pressure 36 mmHg <36 RV Systolic Pressure 36 mmHg <36 Aorta Name Value Normal Ascending Aorta Ao Root Diameter (MM) 3.55 cm Ao Root Diam Index (MM) 1.56 cm/m2 Aortic Valve Name Value Normal AV Doppler AV Peak Velocity 113.57 cm/s AV Peak Gradient 5 mmHg AV Mean Gradient 3 mmHg AV VTI 21.88 cm AV Area (Cont Eq VTI) 1.86 cm2 >=3.00 AV Area (Cont Eq Mathieu) 2.04 cm2 AV Regurgitation 2D LVOT Area 2.72 cm2 AV Regurgitation Doppler AR Decel Time 3 s AR Decel [place] 89.39 cm/s2 AR PHT 1 s Ventricles Name Value Normal LV Dimensions 2D/MM IVS Diastolic Thickness (2D) 0.93 cm 0.60-1.00 LVID Diastole (2D) 4.07 cm 4.20-5.80 LVIW Diastolic Thickness (2D) 0.93 cm 0.60-1.00 LVID Systole (2D) 2.98 cm 2.50-4.00 LVOT Diameter 1.86 cm LV Mass (2D Cubed) 117.90 g 88.00-224.00 LV Mass Index (2D Cubed) 0.01 g/cm2 0.00-0.01 Relative Wall Thickness (2D) 0.46 LV Fractional Shortening/Ejection Fraction 2D/MM LV Fractional Shortening (2D) 27 % 25-43 LV EF (2D Teicholz) 53 % 52-72 LV Diastolic Volume (4C MOD) 125.93 ml LV EF (4C MOD) 49 % LV Diastolic Volume (2C MOD) 110.82 ml LV EF (2C MOD) 39 % LV Diastolic Volume (BP MOD) 119.72 ml 62.00-150.00 LV Diastolic Volume Index (BP MOD) 0.05 l/m2 0.03-0.07 LV Systolic Volume (BP MOD) 64.73 ml 21.00-61.00 LV Systolic Volume Index (BP MOD) 0.03 l/m2 0.01-0.03 LV EF (BP MOD) 46 % 52-72 LV Diastolic Length (4C) 8.38 cm LV Systolic Length (4C) 7.81 cm LV Stroke Volume (4C MOD) 61.78 ml Atria Name Value Normal LA Dimensions LA Dimension (MM) 3.71 cm 3.00-4.10 LA Volume (4C A-L) 26.90 ml LA Volume (BP A-L) 39.38 ml RA Dimensions RA Area (4C) 15.72 cm2 <=18.00 Report Signatures
[2024-09-20] MEDS: CEFEPIME 2 GM/NS 50 ML 2 GM/50 ML BAG IVPB (05:45)
[2024-09-20 06:22] LABS: INR 1.6
[2024-09-20 06:23] LABS: Alanine Aminotransferase 28 U/L (6-50); Albumin Level 2.5 g/dL (3.5-5.1); Alkaline Phosphatase 61 U/L (38-126); Aspartate Amino Transferase 80 U/L (17-59); Bilirubin,Total 1.7 mg/dL (0.2-1.3)
--- NOTE | 2024-09-20 08:08 | ECG_ITS ---
Test Date: 2024-09-20 09:09:52 Measurements Intervals [place] Rate: 75 P: 55 IL: 154 QRS: 5 QRSD: 89 T: 64 QT: 456 QTc: 511 Interpretive Statements SINUS RHYTHM SEPTAL MYOCARDIAL INFARCTION , OF INDETERMINATE AGE [40+ ms Q WAVE IN V1/V2] ANTEROLATERAL ST ABNORMALITY, CONSIDER ISCHEMIA ABNORMAL ECG Electronically Signed On 09-20-2024 14:02:53 CDT by Migue Badillo M.D.
--- NOTE | 2024-09-20 09:50 | IVDEFINITY ---
Prior to administration of IV Definity the patient was educated on the risks and benefits of the imaging enhancing agent including potential adverse side effects. The patient verbalized understanding. Allergies were verified. No exclusion criteria were identified and at least one of the following inclusion criteria were met: 1) physician request, 2) patient technically difficult to image (per the [place] [employer] guidelines of two or more segments not discernable within the apical view), or 3) questionable left ventricular function. ?
[2024-09-20] MEDS: PERFLUTREN LIPID MICROSPHERES 1.5 ML VIAL DILUTED TO 10 ML TOTAL VOLUME IV PUSH (09:51)
[2024-09-20] MEDS: ATORVASTATIN 40 MG TABLET PO (10:10)
[2024-09-20] MEDS: METOPROLOL TARTRATE 25 MG TABLET PO ×2 (10:10→20:59)
[2024-09-20] MEDS: REMDESIVIR 100 MG/NS 250 ML 100 MG/250 ML BAG 250 MG IVPB (10:11)
[2024-09-20] MEDS: MESALAMINE 400 MG DELAYED RELEASE CAPSULE 800 MG PO ×3 (10:11→17:24)
--- NOTE | 2024-09-20 10:11 | P.PNCA_ITS ---
Progress Note: A&P Assessment and Plan (1) Non-STEMI (non-ST elevated myocardial infarction): Code(s): I21.4 - Non-ST elevation (NSTEMI) myocardial infarction Status: Acute Plan 59-year-old man with history of hydrocephalus, intellectual disability, obesity, and recently diagnosed ulcerative colitis who was recently discharged from [facility] for dehydration in setting of ulcerative colitis now presented from rehab facility with syncopal event found to have non ST elevation VA in setting of acute anemia Non ST-elevation -his presentation/course is more likely consistent with demand rather than acute thrombotic lesion -now that his anemia has stabilized, his EKG is improving but still have evidence of lateral ischemia -we will obtain a transthoracic echocardiogram -previously intolerant to heparin drip with acute hemoglobin decreased requiring transfusion -if echo is unremarkable, patient can follow-up in clinic to discuss ischemic evaluation if in the alignment with his goals of care Anemia -stable COVID 19 infection -on remdesivir Subjective Date/time seen: 09/20/24 10:11 Interval history: Denies any chest pain or shortness of breath Review of Systems Cardiovascular: Cardiovascular: Reports as per HPI Respiratory: Respiratory: Reports as per HPI Exam Const: General: comfortable HENMT: Mouth: Yes moist mucous membranes Eyes: EOM: EOMs intact bilaterally Neck: Neck: no JVD Resp: Effort & Inspection: normal respiratory effort Auscultation: clear to auscultation bilaterally Cardio: Rate: regular rate Rhythm: regular rhythm GI: GI Palp: Yes Soft to palpation Extrem: General: no pedal edema Objective Data Vital Signs Vital Signs: Vital Signs - 24 hr 09/19/24 12:00 09/19/24 12:00 09/19/24 12:00 Temperature 36.6 C Pulse Rate 86 86 Respiratory Rate 22 H Blood Pressure 94/61 L Pulse Oximetry 96 92 Oxygen Delivery Nasal Cannula Oxygen Flow Rate 3 Fraction of Inspired Oxygen 32 09/19/24 14:00 09/19/24 16:00 09/19/24 16:00 Temperature 37.1 C Pulse Rate 86 83 110 H Respiratory Rate 28 H Blood Pressure 106/71 Pulse Oximetry 94 Oxygen Delivery Oxygen Flow Rate Fraction of Inspired Oxygen 09/19/24 20:00 09/19/24 20:00 09/19/24 22:00 Temperature 36.7 C Pulse Rate 81 84 Respiratory Rate 16 Blood Pressure 94/60 L Pulse Oximetry 92 92 Oxygen Delivery Nasal Cannula Oxygen Flow Rate 3 Fraction of Inspired Oxygen 09/20/24 00:00 09/20/24 04:00 09/20/24 06:00 Temperature 36.4 C Pulse Rate 72 76 74 Respiratory Rate 16 Blood Pressure 95/65 L Pulse Oximetry 100 Oxygen Delivery Oxygen Flow Rate Fraction of Inspired Oxygen Intake/Output Intake/Output: Intake & Output 09/17/24 09/18/24 09/19/24 09/20/24 23:59 23:59 23:59 23:59 Intake Total 4550 4105.9 3450 Output Total 525 1750 4300 600 Balance 4025 2355.9 -850 -600 Meds/Results Medications: Active Medications Generic Name Dose Route Start Last Admin Trade Name Freq PRN Reason Stop Dose Admin Acetaminophen 650 mg 09/17/24 21:05 Acetaminophen 325 Mg Tablet PO Q4H PRN Mild Pain (1-3) or Fever Atorvastatin Calcium 40 mg 09/19/24 09:00 09/19/24 08:38 Atorvastatin 40 Mg Tablet PO 40 mg DAILY KRISTINE Administration Remdesivir 100 mg in 250 mls @ 250 mls/hr 09/19/24 10:00 09/19/24 11:43 IVPB 09/22/24 10:59 250 mls/hr Q24H KRISTINE Administration Cefepime HCl 2 gm in 50 mls @ 100 mls/hr 09/18/24 05:00 09/20/24 05:45 Maxipime 2 Gm/Ns 50 Ml IVPB 100 mls/hr Q8H KRISTINE Administration Mesalamine 800 mg 09/18/24 20:40 09/19/24 18:12 Mesalamine 400 Mg Delayed Release Capsule PO 800 mg TID KRISTINE Administration Metoprolol Tartrate 25 mg 09/19/24 21:00 09/19/24 21:41 Metoprolol Tartrate 25 Mg Tablet PO 25 mg Q12HR KRISTINE Administration Ondansetron HCl 4 mg 09/17/24 21:05 Ondansetron Inj 4 Mg/2 Ml Vial IV PUSH Q4H PRN Nausea Sodium Chloride 1 gm 09/18/24 09:00 09/19/24 18:12 Sodium Chloride 1 Gm Tablet PO 1 gm BID KRISTINE Administration Radiology Results: ITS Impressions Head CT 09/17/24 17:39 IMPRESSION: No acute intracranial findings. Chest/Abdomen/Pelvis CTA 09/17/24 17:45 IMPRESSION: CHEST: 1. No pulmonary embolism. 2. No acute cardiopulmonary pathology. ABDOMEN/PELVIS: 1. No evidence of appendicitis, diverticulitis or intestinal obstruction. 2. Possible right kidney lower pole a stone versus early contrast excretion. Follow-up advised. 3. Slightly thickened wall of the urinary bladder with surrounding fat stran ding suggestive of cystitis. 4. Tiny hypodensity in the liver most likely tiny cysts. 5. Bilateral fat containing inguinal hernias. Labs Labs: Laboratory Results - last 24 hr 09/18/24 09/19/24 09/20/24 16:41 15:20 05:56 Hgb 9.8 L Hct 29.9 L PT 20.0 H INR 1.6 Total Bilirubin 1.7 H Direct Bilirubin 0.0 AST 80 H ALT 28 Alkaline Phosphatase 61 Total Protein 5.0 L Albumin 2.5 L Stl Occult Blood (IFOB) Cancelled
[2024-09-20] MEDS: SODIUM CHLORIDE 1 GM TABLET PO ×2 (10:12→17:24)
--- NOTE | 2024-09-20 11:12 | P.PNIM_ITS ---
Progress Note: A&P Assessment and Plan (1) Non-STEMI (non-ST elevated myocardial infarction): Code(s): I21.4 - Non-ST elevation (NSTEMI) myocardial infarction Status: Acute (2) Demand ischemia: Code(s): I24.89 - Other forms of acute ischemic heart disease Status: Acute (3) Hyponatremia: Code(s): E87.1 - Hypo-osmolality and hyponatremia Status: Acute (4) Mass of left ear canal: Code(s): H93.8X2 - Other specified disorders of left ear Status: Acute (5) GERD with esophagitis: Qualifiers: Esophagitis bleeding: unspecified whether hemorrhage Qualified Code(s): K21.00 - Gastro-esophageal reflux disease with esophagitis, without bleeding Code(s): K21.00 - Gastro-esophageal reflux disease with esophagitis, without bleeding Status: Acute (6) Urinary tract infection: Qualifiers: Hematuria presence: without hematuria Urinary tract infection type: acute cystitis Qualified Code(s): N30.00 - Acute cystitis without hematuria Code(s): N39.0 - Urinary tract infection, site not specified Status: Acute (7) Acute on chronic blood loss anemia: Code(s): D62 - Acute posthemorrhagic anemia Status: Acute (8) COVID-19: Code(s): U07.1 - COVID-19 Status: Acute Plan Urosepsis Central line placed BP stable received bolus in ED No Vasopressors BC no growth and UC shows E coli Status post Cefepime and Vancomycin Started on ceftriaxone for UTI and PNA and doxy for atypical PNA Acute on Chronic anemia Initially on Heparin drip but dc'ed due to drop in Hgb Monitor H and H Recent EGD and colonoscopy outside facility demonstrating severe erosive esoph agitis and colitis. 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 Cardiology evaluated the patient believes possible demand ischemia but still has evidence of lateral ischemia. Echocardiogram is pending. Further workup by Cardiology after the echo results. Possible low hemoglobin due to colitis. GI on board. Patient is currently on mesalamine. Review of Systems Review of Systems: The patient is a poor historian due to intellectual disability and hearing loss. He patient denies pain. He denies shortness of breast despite being obviously tachypneic in the ER. Exam Narrative: Weight 106.2 kg BMI 36.7 Const: Other: Obese, disheveled, poor hygiene, strong body odor, appears older than stated age, acutely ill-appearing HENMT: Other: Poor dentition with multiple teeth broken off at the gumline, some small amount of oozing blood from the gums surrounding broken dentition, halitosis, Head is normocephalic atraumatic, pupils are equal and reactive, mild scleral icterus, positive conjunctival pallor, patient had moderate cerumen in both ears but cerumen from the left ear was easily were removed but there is a mass in the left ear canal that appeared moist and almost macerated. The left ear canal had some cerumen that partially obscured further visualization tympanic membrane was difficult to assess Eyes: Other: Mild scleral icterus, positive conjunctival pallor, pupils are equal and reactive Neck: Other: No thyromegaly, no JVD Resp: Other: Decreased breath sounds in the right lung base, tachypnea, no accessory muscle use, frequent cough Cardio: Other: Sinus tachycardia, 2+ bilateral radial pedal pulses GI: Other: Soft, obese, nontender, normoactive bowel sounds : Other: Circumcised male with To catheter in place with small amount of dark yellow turbid urine Skin: Other: 3-4 second cap refill, no mottling, warm to touch, diaphoretic, patient has thick yellow overgrown toenails some of which are curling, he has 3rd and feet kill a material noted under his fingernails with chronic discoloration Neuro: Other: Alert oriented to person, fact that he is in a hospital, the month and the name of the current president. He thought the year was 2004. He has no localizing neurologic deficits noted but his speech is slow. 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, he can lift both legs from the stretcher in hold them against resistance Psych: Other: Confused, pleasant and cooperative, poor judgment and insight Objective Data Vital Signs Vital Signs: Vital Signs - 24 hr 09/19/24 12:00 09/19/24 12:00 09/19/24 12:00 Temperature 97.8 F Pulse Rate 86 86 Respiratory Rate 22 H Blood Pressure 94/61 L Pulse Oximetry 96 92 Oxygen Delivery Nasal Cannula Oxygen Flow Rate 3 Fraction of Inspired Oxygen 32 09/19/24 14:00 09/19/24 16:00 09/19/24 16:00 Temperature 98.7 F Pulse Rate 86 83 110 H Respiratory Rate 28 H Blood Pressure 106/71 Pulse Oximetry 94 Oxygen Delivery Oxygen Flow Rate Fraction of Inspired Oxygen 09/19/24 20:00 09/19/24 20:00 09/19/24 22:00 Temperature 98.1 F Pulse Rate 81 84 Respiratory Rate 16 Blood Pressure 94/60 L Pulse Oximetry 92 92 Oxygen Delivery Nasal Cannula Oxygen Flow Rate 3 Fraction of Inspired Oxygen 09/20/24 00:00 09/20/24 04:00 09/20/24 06:00 Temperature 97.6 F Pulse Rate 72 76 74 Respiratory Rate 16 Blood Pressure 95/65 L Pulse Oximetry 100 Oxygen Delivery Oxygen Flow Rate Fraction of Inspired Oxygen 09/20/24 10:10 Temperature Pulse Rate 77 Respiratory Rate Blood Pressure Pulse Oximetry Oxygen Delivery Oxygen Flow Rate Fraction of Inspired Oxygen Intake/Output Intake/Output: Intake & Output 09/17/24 09/18/24 09/19/24 09/20/24 23:59 23:59 23:59 23:59 Intake Total 4550 4105.9 3700 Output Total 525 1750 4300 600 Balance 4025 2355.9 -600 600 Meds/Results Medications: Active Medications Generic Name Dose Route Start Last Admin Trade Name Freq PRN Reason Stop Dose Admin Acetaminophen 650 mg 09/17/24 21:05 Acetaminophen 325 Mg Tablet PO Q4H PRN Mild Pain (1-3) or Fever Atorvastatin Calcium 40 mg 09/19/24 09:00 09/20/24 10:10 Atorvastatin 40 Mg Tablet PO 40 mg DAILY KRISTINE Administration Remdesivir 100 mg in 250 mls @ 250 mls/hr 09/19/24 10:00 09/20/24 10:11 IVPB 09/22/24 10:59 250 mls/hr Q24H KRISTINE Administration Cefepime HCl 2 gm in 50 mls @ 100 mls/hr 09/18/24 05:00 09/20/24 05:45 Maxipime 2 Gm/Ns 50 Ml IVPB 100 mls/hr Q8H KRISTINE Administration Mesalamine 800 mg 09/18/24 20:40 09/20/24 10:11 Mesalamine 400 Mg Delayed Release Capsule PO 800 mg TID KRISTINE Administration Metoprolol Tartrate 25 mg 09/19/24 21:00 09/20/24 10:10 Metoprolol Tartrate 25 Mg Tablet PO 25 mg Q12HR KRISTINE Administration Ondansetron HCl 4 mg 09/17/24 21:05 Ondansetron Inj 4 Mg/2 Ml Vial IV PUSH Q4H PRN Nausea Sodium Chloride 1 gm 09/18/24 09:00 09/20/24 10:12 Sodium Chloride 1 Gm Tablet PO 1 gm BID KRISTINE Administration Radiology Results: ITS Impressions Head CT 09/17/24 17:39 IMPRESSION: No acute intracranial findings. Chest/Abdomen/Pelvis CTA 09/17/24 17:45 IMPRESSION: CHEST: 1. No pulmonary embolism. 2. No acute cardiopulmonary pathology. ABDOMEN/PELVIS: 1. No evidence of appendicitis, diverticulitis or intestinal obstruction. 2. Possible right kidney lower pole a stone versus early contrast excretion. Follow-up advised. 3. Slightly thickened wall of the urinary bladder with surrounding fat stranding suggestive of cystitis. 4. Tiny hypodensity in the liver most likely tiny cysts. 5. Bilateral fat containing inguinal hernias. Labs Labs: Laboratory Results - last 24 hr 09/18/24 09/19/24 09/20/24 16:41 15:20 05:56 Hgb 9.8 L Hct 29.9 L PT 20.0 H INR 1.6 Total Bilirubin 1.7 H Direct Bilirubin 0.0 AST 80 H ALT 28 Alkaline Phosphatase 61 Total Protein 5.0 L Albumin 2.5 L Stl Occult Blood (IFOB) Cancelled Quality VTE Prophylaxis VTE prophylaxis: mechanical ordered (SCDs) Hospitalist MIPS Advance Care Plan I have confirmed that the patient's Advanced Care Plan is present, code status is documented, or surrogate decision maker is listed in patient medical record.: Yes Medication Reconciliation I have utilized all available resources to obtain, update and review the patients current medications (includes all prescriptions, OTC, herbals, cannabis, and nutritional supplements).: Yes
[2024-09-20 13:19] LABS: Ionized Calcium 4.5 mg/dL (4.7-5.5)
[2024-09-20 13:52] LABS: Mean Corpuscular HGB Conc 32.3 g/dl (32-36); Mean Corpuscular Hemoglobin 29.3 pg (26-34); Mean Corpuscular Volume 90.9 fl (80-100); Mean Platelet Volume 8.9 fl (7.4-10.4); Platelet Count Result 230 k/mm3 (150-375); Red Blood Count 3.41 M/mm3 (4.6-6.20); Red Cell Distribution Width 17.6 % (11.5-14.5); White Blood Count 5.9 K/mm3 (4.5-10.0)
[2024-09-20] MEDS: cefTRIAXone 2 GM/NS 100 ML 2 GM/100 ML BAG IVPB (13:54)
[2024-09-20] MEDS: DOXYCYCLINE 100 MG/NS 100 ML 100 MG/100 ML BAG IVPB (13:57)
[2024-09-20 14:12] LABS: Alanine Aminotransferase 27 U/L (6-50); Albumin Level 2.4 g/dL (3.5-5.1); Alkaline Phosphatase 61 U/L (38-126); Anion Gap 8 mmol/L (4-12); Aspartate Amino Transferase 72 U/L (17-59); Bilirubin,Total 1.8 mg/dL (0.2-1.3); Blood Urea Nitrogen 26 mg/dL (9-20); Carbon Dioxide 23 mmol/L (22-30); Chloride 104 mmol/L (98-107); Estimated CRCL calculation 95 ml/min; Estimated Glomerular Filt Rate > 60; Glucose 113 mg/dL (65-110); Potassium 3.3 mmol/L (3.4-5.0); Sodium 135 mmol/L (137-145)
--- NOTE | 2024-09-20 16:31 | WPDGIPROGNO ---
Progress Note: A&P Assessment and Plan (1) Anemia: Code(s): D64.9 - Anemia, unspecified Status: Acute Assessment and Plan: The patient's borderline iron-deficient anemia is likely related to chronic ulcerative colitis, for which he is receiving mesalamine. However, the presence of a possible hemolytic component (high LDH, reticulocytes, indirect hyperbilirrubinemia) , as documented in weekend notes, warrants further investigation. Therefore, a hematology consultation is recommended. As the patient is currently stable, without acute decompensation from inflammatory bowel disease or active bleeding, we will defer further evaluation at this time. We will be available to re-evaluate the patient if his GI status changes (2) Ulcerative colitis: Code(s): K51.90 - Ulcerative colitis, unspecified, without complications Status: Acute Subjective Date/time seen: 09/20/24 16:31 Interval history: The patient did not have diarrhea, only small amount of pasty stools. No obvious rectal bleeding. His hemoglobin has remained stable. Exam Narrative: Unchanged from yest Objective Data Vital Signs Vital Signs: Vital Signs - 24 hr 09/19/24 20:00 09/19/24 20:00 09/19/24 22:00 Temperature 98.1 F Pulse Rate 81 84 Respiratory Rate 16 Blood Pressure 94/60 L Pulse Oximetry 92 92 Oxygen Delivery Nasal Cannula Oxygen Flow Rate 3 09/20/24 00:00 09/20/24 04:00 09/20/24 06:00 Temperature 97.6 F Pulse Rate 72 76 74 Respiratory Rate 16 Blood Pressure 95/65 L Pulse Oximetry 100 Oxygen Delivery Oxygen Flow Rate 09/20/24 08:00 09/20/24 10:10 09/20/24 12:00 Temperature Pulse Rate 73 77 71 Respiratory Rate Blood Pressure Pulse Oximetry Oxygen Delivery Oxygen Flow Rate 09/20/24 14:00 Temperature 97.8 F Pulse Rate 70 Respiratory Rate 18 Blood Pressure 92/55 L Pulse Oximetry 97 Oxygen Delivery Oxygen Flow Rate Intake/Output Intake/Output: Intake & Output 09/17/24 09/18/24 09/19/24 09/20/24 23:59 23:59 23:59 23:59 Intake Total 4550 4105.9 3700 240 Output Total 525 1750 4300 600 Balance 4025 2355.9 -600 -360 Meds/Results Medications: Active Medications Generic Name Dose Route Start Last Admin Trade Name Freq PRN Reason Stop Dose Admin Acetaminophen 650 mg 09/17/24 21:05 Acetaminophen 325 Mg Tablet PO Q4H PRN Mild Pain (1-3) or Fever Atorvastatin Calcium 40 mg 09/19/24 09:00 09/20/24 10:10 Atorvastatin 40 Mg Tablet PO 40 mg DAILY KRISTINE Administration Remdesivir 100 mg in 250 mls @ 250 mls/hr 09/19/24 10:00 09/20/24 10:11 IVPB 09/22/24 10:59 250 mls/hr Q24H KRISTINE Administration Ceftriaxone Sodium 2 gm in 100 mls @ 200 mls/hr 09/20/24 13:00 09/20/24 13:54 Rocephin 2 Gm/Ns 100 Ml IVPB 09/24/24 09:29 200 mls/hr DAILY KRISTINE Administration Doxycycline Hyclate 100 mg in 100 mls @ 100 mls/hr 09/20/24 14:00 09/20/24 13:57 Vibramycin 100 Mg/Ns 100 Ml IVPB 09/25/24 02:59 100 mls/hr Q12H KRISTINE Administration Mesalamine 800 mg 09/18/24 20:40 09/20/24 13:55 Mesalamine 400 Mg Delayed Release Capsule PO 800 mg TID KRISTINE Administration Metoprolol Tartrate 25 mg 09/19/24 21:00 09/20/24 10:10 Metoprolol Tartrate 25 Mg Tablet PO 25 mg Q12HR KRISTINE Administration Ondansetron HCl 4 mg 09/17/24 21:05 Ondansetron Inj 4 Mg/2 Ml Vial IV PUSH Q4H PRN Nausea Sodium Chloride 1 gm 09/18/24 09:00 09/20/24 10:12 Sodium Chloride 1 Gm Tablet PO 1 gm BID KRISTINE Administration Radiology Results: ITS Impressions Head CT 09/17/24 17:39 IMPRESSION: No acute intracranial findings. Chest/Abdomen/Pelvis CTA 09/17/24 17:45 IMPRESSION: CHEST: 1. No pulmonary embolism. 2. No acute cardiopulmonary pathology. ABDOMEN/PELVIS: 1. No evidence of appendicitis, diverticulitis or intestinal obstruction. 2. Possible right kidney lower pole a stone versus early contrast excretion. Follow-up advised. 3. Slightly thickened wall of the urinary bladder with surrounding fat stranding suggestive of cystitis. 4. Tiny hypodensity in the liver most likely tiny cysts. 5. Bilateral fat containing inguinal hernias. Labs Labs: Laboratory Results - last 24 hr 09/18/24 09/18/24 09/20/24 16:41 19:00 05:56 WBC RBC Hgb Hct MCV MCH MCHC RDW Plt Count MPV PT 20.0 H INR 1.6 Sodium Potassium Chloride Carbon Dioxide Anion Gap BUN Creatinine Estim Creat Clear Calc Estimated GFR Glucose Calcium Ionized Calcium Marty 4.5 L Total Bilirubin 1.7 H Direct Bilirubin 0.0 AST 80 H ALT 28 Alkaline Phosphatase 61 Total Protein 5.0 L Albumin 2.5 L Stl Occult Blood (IFOB) Cancelled 09/20/24 13:44 WBC 5.9 RBC 3.41 L Hgb 10.0 L Hct 31.0 L MCV 90.9 MCH 29.3 MCHC 32.3 RDW 17.6 H Plt Count 230 MPV 8.9 PT INR Sodium 135 L Potassium 3.3 L Chloride 104 Carbon Dioxide 23 Anion Gap 8 BUN 26 H Creatinine 0.89 Estim Creat Clear Calc 95 Estimated GFR > 60 Glucose 113 H Calcium 7.0 L Ionized Calcium Marty Total Bilirubin 1.8 H Direct Bilirubin AST 72 H ALT 27 Alkaline Phosphatase 61 Total Protein 5.0 L Albumin 2.4 L Stl Occult Blood (IFOB)
[2024-09-21] VITALS (12 sets, daily range): BP systolic 105–118; BP diastolic 59–78; PULSE 68–83; RESP 18; TEMP 36.1–36.5; O2SAT 95–98
[2024-09-21] MEDS: DOXYCYCLINE 100 MG/NS 100 ML 100 MG/100 ML BAG IVPB ×2 (01:28→14:21)
[2024-09-21 02:48] LABS: Haptoglobin 173 mg/dL (43-212)
[2024-09-21 05:27] LABS: Hematocrit 32.5 % (42.0-52.0); Hemoglobin 10.4 g/dL (14.0-18.0); Mean Corpuscular Hemoglobin 29.5 pg (26-34); Mean Corpuscular Volume 92.1 fl (80-100); Mean Platelet Volume 9.4 fl (7.4-10.4); Platelet Count Result 228 k/mm3 (150-375); Red Blood Count 3.53 M/mm3 (4.6-6.20); Red Cell Distribution Width 17.7 % (11.5-14.5); White Blood Count 5.6 K/mm3 (4.5-10.0)
[2024-09-21 05:40] LABS: Alanine Aminotransferase 24 U/L (6-50); Albumin Level 2.3 g/dL (3.5-5.1); Alkaline Phosphatase 66 U/L (38-126); Anion Gap 6 mmol/L (4-12); Aspartate Amino Transferase 60 U/L (17-59); Bilirubin,Total 1.6 mg/dL (0.2-1.3); Blood Urea Nitrogen 26 mg/dL (9-20); Carbon Dioxide 23 mmol/L (22-30); Chloride 105 mmol/L (98-107); Estimated CRCL calculation 102 ml/min; Estimated Glomerular Filt Rate > 60; Glucose 89 mg/dL (65-110); Potassium 3.2 mmol/L (3.4-5.0); Sodium 134 mmol/L (137-145)
[2024-09-21] MEDS: cefTRIAXone 2 GM/NS 100 ML 2 GM/100 ML BAG IVPB (10:29)
[2024-09-21] MEDS: REMDESIVIR 100 MG/NS 250 ML 100 MG/250 ML BAG 250 MG IVPB (10:29)
[2024-09-21] MEDS: SODIUM CHLORIDE 1 GM TABLET PO ×2 (10:31→17:46)
[2024-09-21] MEDS: MESALAMINE 400 MG DELAYED RELEASE CAPSULE 800 MG PO ×3 (10:31→17:45)
[2024-09-21] MEDS: ATORVASTATIN 40 MG TABLET PO (10:31)
--- NOTE | 2024-09-21 13:17 | PCOTNOTE ---
Pt. currently has bedrest orders, Hospitalist, Dr. Carpenter notified, and confirmed change in order status for pt. to participate in therapy, requesting that therapist ask nursing to change orders. Nursing called and updated with note
[2024-09-21] MEDS: CENTRAL LINE FLUSH 10 ML IV PUSH ×2 (14:26→20:07)
--- NOTE | 2024-09-21 17:34 | P.PNIM_ITS ---
Progress Note: A&P Assessment and Plan (1) Non-STEMI (non-ST elevated myocardial infarction): Code(s): I21.4 - Non-ST elevation (NSTEMI) myocardial infarction Status: Acute (2) Demand ischemia: Code(s): I24.89 - Other forms of acute ischemic heart disease Status: Acute (3) Hyponatremia: Code(s): E87.1 - Hypo-osmolality and hyponatremia Status: Acute (4) Mass of left ear canal: Code(s): H93.8X2 - Other specified disorders of left ear Status: Acute (5) GERD with esophagitis: Qualifiers: Esophagitis bleeding: unspecified whether hemorrhage Qualified Code(s): K21.00 - Gastro-esophageal reflux disease with esophagitis, without bleeding Code(s): K21.00 - Gastro-esophageal reflux disease with esophagitis, without bleeding Status: Acute (6) Urinary tract infection: Qualifiers: Hematuria presence: without hematuria Urinary tract infection type: acute cystitis Qualified Code(s): N30.00 - Acute cystitis without hematuria Code(s): N39.0 - Urinary tract infection, site not specified Status: Acute (7) Acute on chronic blood loss anemia: Code(s): D62 - Acute posthemorrhagic anemia Status: Acute (8) COVID-19: Code(s): U07.1 - COVID-19 Status: Acute Plan Urosepsis Central line placed BP stable received bolus in ED No Vasopressors BC no growth and UC shows Zamora sensitive E coli Continue Rocephin monitor Acute on Chronic anemia Folate deficiency Initially on Heparin drip but dc'ed due to drop in Hgb Monitor H and H Recent EGD and colonoscopy outside facility demonstrating severe erosive esophagitis and colitis. Started on mesalamine at [place](needs pathology report to verify UC) Protonix 40 mg IV q.12 hours started on Folic acid GI consulted for possibel Endoscopy, evaluated adn recommended oncology eval oncology consulted (Elevated LDH, retic count and indirect bili) monitor NSTEMI Possible demand ischemia Negative nuclear medicine stress test at [place] with an EF of 70% DC heparin due to drop in HgB ECHO showed EF 50% and no regional wall motion abnormalities. 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 He patient denies pain. He denies shortness of breast despite being obviously tachypneic in the ER. Exam Narrative: Weight 106.2 kg BMI 36.7 Const: Other: Obese, disheveled, poor hygiene, strong body odor, appears older than stated age, acutely ill-appearing HENMT: Other: Poor dentition with multiple teeth broken off at the gumline, some small amount of oozing blood from the gums surrounding broken dentition, halitosis, Head is normocephalic atraumatic, pupils are equal and reactive, mild scleral icterus, positive conjunctival pallor, patient had moderate cerumen in both ears but cerumen from the left ear was easily were removed but there is a mass in the left ear canal that appeared moist and almost macerated. The left ear canal had some cerumen that partially obscured further visualization tympanic membrane was difficult to assess Eyes: Other: Mild scleral icterus, positive conjunctival pallor, pupils are equal and daniela ctive Neck: Other: No thyromegaly, no JVD Resp: Other: Decreased breath sounds in the right lung base, tachypnea, no accessory muscle use, frequent cough Cardio: Other: Sinus tachycardia, 2+ bilateral radial pedal pulses GI: Other: Soft, obese, nontender, normoactive bowel sounds : Other: Circumcised male with To catheter in place with small amount of dark yellow turbid urine Skin: Other: 3-4 second cap refill, no mottling, warm to touch, diaphoretic, patient has thick yellow overgrown toenails some of which are curling, he has 3rd and feet kill a material noted under his fingernails with chronic discoloration Neuro: Other: Alert oriented to person, fact that he is in a hospital, the month and the name of the current president. He thought the year was 2004. He has no localizing neurologic deficits noted but his speech is slow. 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, he can lift both legs from the stretcher in hold them against resistance Psych: Other: Confused, pleasant and cooperative, poor judgment and insight Objective Data Vital Signs Vital Signs: Vital Signs - 24 hr 09/20/24 20:00 09/20/24 20:00 09/20/24 21:47 Temperature 97.2 F L Pulse Rate 77 73 Respiratory Rate 18 Blood Pressure 100/70 Pulse Oximetry 93 96 Oxygen Delivery Nasal Cannula Oxygen Flow Rate 1 09/21/24 00:00 09/21/24 04:00 09/21/24 06:00 Temperature 97.0 F L Pulse Rate 68 73 78 Respiratory Rate 18 Blood Pressure 112/78 Pulse Oximetry 97 Oxygen Delivery Oxygen Flow Rate 09/21/24 10:30 09/21/24 10:38 09/21/24 14:00 Temperature 97.2 F L Pulse Rate 70 72 Respiratory Rate 18 Blood Pressure 108/63 118/59 L Pulse Oximetry 95 98 96 Oxygen Delivery Room Air Oxygen Flow Rate Intake/Output Intake/Output: Intake & Output 09/18/24 09/19/24 09/20/24 09/21/24 23:59 23:59 23:59 23:59 Intake Total 4105.9 3700 690 1260 Output Total 1750 4300 950 1600 Balance 2355.9 -600 -260 -340 Meds/Results Medications: Active Medications Generic Name Dose Route Start Last Admin Trade Name Freq PRN Reason Stop Dose Admin Acetaminophen 650 mg 09/17/24 21:05 Acetaminophen 325 Mg Tablet PO Q4H PRN Mild Pain (1-3) or Fever Atorvastatin Calcium 40 mg 09/19/24 09:00 09/21/24 10:31 Atorvastatin 40 Mg Tablet PO 40 mg DAILY KRISTINE Administration Remdesivir 100 mg in 250 mls @ 250 mls/hr 09/19/24 10:00 09/21/24 10:29 IVPB 09/22/24 10:59 250 mls/hr Q24H KRISTINE Administration Ceftriaxone Sodium 2 gm in 100 mls @ 200 mls/hr 09/20/24 13:00 09/21/24 10:29 Rocephin 2 Gm/Ns 100 Ml IVPB 09/24/24 09:29 200 mls/hr DAILY KRISTINE Administration Doxycycline Hyclate 100 mg in 100 mls @ 100 mls/hr 09/20/24 14:00 09/21/24 14:21 Vibramycin 100 Mg/Ns 100 Ml IVPB 09/25/24 02:59 100 mls/hr Q12H KRISTINE Administration Mesalamine 800 mg 09/18/24 20:40 09/21/24 12:36 Mesalamine 400 Mg Delayed Release Capsule PO 800 mg TID KRISTINE Administration Metoprolol Tartrate 25 mg 09/19/24 21:00 09/21/24 10:38 Metoprolol Tartrate 25 Mg Tablet PO Not Given Q12HR KRISTINE Ondansetron HCl 4 mg 09/17/24 21:05 Ondansetron Inj 4 Mg/2 Ml Vial IV PUSH Q4H PRN Nausea Sodium Chloride 1 gm 09/18/24 09:00 09/21/24 10:31 Sodium Chloride 1 Gm Tablet PO 1 gm BID KRISTINE Administration Sodium Chloride 10 ml 09/21/24 14:00 09/21/24 14:26 Central Line Flush IV PUSH 10 ml Q8HR KRISTINE Administration Sodium Chloride 20 ml 09/21/24 08:06 Central Line Flush IV PUSH PRN PRN after blood draws Radiology Results: ITS Impressions Head CT 09/17/24 17:39 IMPRESSION: No acute intracranial findings. Chest/Abdomen/Pelvis CTA 09/17/24 17:45 IMPRESSION: CHEST: 1. No pulmonary embolism. 2. No acute cardiopulmonary pathology. ABDOMEN/PELVIS: 1. No evidence of appendicitis, diverticulitis or intestinal obstruction. 2. Possible right kidney lower pole a stone versus early contrast excretion. Follow-up advised. 3. Slightly thickened wall of the urinary bladder with surrounding fat stranding suggestive of cystitis. 4. Tiny hypodensity in the liver most likely tiny cysts. 5. Bilateral fat containing inguinal hernias. Labs Labs: Laboratory Results - last 24 hr 09/18/24 09/21/24 11:56 05:17 WBC 5.6 RBC 3.53 L Hgb 10.4 L Hct 32.5 L MCV 92.1 MCH 29.5 MCHC 32.0 RDW 17.7 H Plt Count 228 MPV 9.4 Haptoglobin 173 Sodium 134 L Potassium 3.2 L Chloride 105 Carbon Dioxide 23 Anion Gap 6 BUN 26 H Creatinine 0.83 Estim Creat Clear Calc 102 Estimated GFR > 60 Glucose 89 Calcium 7.0 L Total Bilirubin 1.6 H AST 60 H ALT 24 Alkaline Phosphatase 66 Total Protein 5.0 L Albumin 2.3 L Quality VTE Prophylaxis VTE prophylaxis: mechanical ordered (SCDs)
[2024-09-21] MEDS: THIAMINE HCL INJ 100 MG, FOLIC ACID INJ 1 MG, MAGNESIUM SULFATE INJ 1 GM, MULTIVITAMINS... IV CONT (19:00)
[2024-09-21] MEDS: MINERAL OIL/WHITE PETROLATUM OINTMENT 1 APPLIC EACH EYE (20:06)
[2024-09-21] MEDS: METOPROLOL TARTRATE 25 MG TABLET PO (20:06)
[2024-09-22] VITALS: PULSE 82
[2024-09-22] MEDS: DOXYCYCLINE 100 MG/NS 100 ML 100 MG/100 ML BAG IVPB (01:18)
[2024-09-22 04:00] VITALS: PULSE 81
[2024-09-22 06:00] VITALS: BP 112/83; PULSE 79; RESP 18; TEMP 36.5; O2SAT 97
[2024-09-22 06:23] LABS: Basophils Percent Auto 0.6 % (0.2-1.2); Eosinophils Absolute Auto 0.3 K/mm3 (0-0.3); Eosinophils Percent Auto 5.5 % (0-4.4); Hematocrit 33.5 % (42.0-52.0); Hemoglobin 10.8 g/dL (14.0-18.0); Immature Granulocyte Absolute 0.04 K/mm3 (0.00-0.031); Immature Granulocyte Percent A 0.8 % (0-0.5); Lymphocytes Absolute Auto 1.32 K/mm3 (0.9-3.2); Lymphocytes Percent Auto 26.1 % (18.3-44.2); Mean Corpuscular HGB Conc 32.2 g/dl (32-36); Mean Corpuscular Hemoglobin 29.5 pg (26-34); Mean Corpuscular Volume 91.5 fl (80-100); Mean Platelet Volume 9.4 fl (7.4-10.4); Monocytes Absolute Auto 0.3 K/mm3 (0.1-0.6); Monocytes Percent Auto 5.1 % (2.6-8.5); Neutrophils Absolute Auto 3.1 K/mm3 (1.3-6.7); Neutrophils Percent Auto 61.9 % (45.5-73.1); Platelet Count Result 216 k/mm3 (150-375); Red Blood Count 3.66 M/mm3 (4.6-6.20); Red Cell Distribution Width 17.9 % (11.5-14.5); White Blood Count 5.1 K/mm3 (4.5-10.0)
[2024-09-22 06:36] LABS: Alanine Aminotransferase 20 U/L (6-50); Albumin Level 2.3 g/dL (3.5-5.1); Alkaline Phosphatase 71 U/L (38-126); Anion Gap 5 mmol/L (4-12); Aspartate Amino Transferase 43 U/L (17-59); Bilirubin,Total 1.8 mg/dL (0.2-1.3); Blood Urea Nitrogen 20 mg/dL (9-20); Calcium 7.1 mg/dL (8.4-10.2); Carbon Dioxide 24 mmol/L (22-30); Chloride 106 mmol/L (98-107); Estimated CRCL calculation 111 ml/min; Estimated Glomerular Filt Rate > 60; Glucose 95 mg/dL (65-110); Lactic Acid Reflex 0.9 mmol/L (0.7-2.0); Magnesium 2.2 mg/dL (1.6-2.3); Potassium 3.1 mmol/L (3.4-5.0); Sodium 135 mmol/L (137-145)
[2024-09-22 08:05] VITALS: PULSE 77
[2024-09-22 08:58] VITALS: PULSE 78
[2024-09-22] MEDS: MESALAMINE 400 MG DELAYED RELEASE CAPSULE 800 MG PO ×2 (08:58→12:13)
[2024-09-22] MEDS: ATORVASTATIN 40 MG TABLET PO (08:58)
[2024-09-22] MEDS: METOPROLOL TARTRATE 25 MG TABLET PO (08:58)
[2024-09-22] MEDS: FOLIC ACID 1 MG TABLET PO (08:58)
[2024-09-22] MEDS: SODIUM CHLORIDE 1 GM TABLET PO (08:58)
[2024-09-22] MEDS: cefTRIAXone 2 GM/NS 100 ML 2 GM/100 ML BAG IVPB (08:59)
[2024-09-22] MEDS: CENTRAL LINE FLUSH 10 ML IV PUSH (09:00)
[2024-09-22] MEDS: ALBUMIN HUMAN 25% 25 GM/100 ML 100 ML IVPB (09:48)
[2024-09-22] MEDS: REMDESIVIR 100 MG/NS 250 ML 100 MG/250 ML BAG 250 MG IVPB (09:48)
[2024-09-22] MEDS: POTASSIUM CHLORIDE 20 MEQ PACKET (FOR LIQUID) 40 MEQ PO (09:48)
[2024-09-22] MEDS: CENTRAL LINE FLUSH 20 ML IV PUSH (12:14)
--- NOTE | 2024-09-22 12:59 | P.CONONC_ITS ---
Assessment and Plan Assessment and plan (1) Chronic anemia: Code(s): D64.9 - Anemia, unspecified Status: Acute Plan patient with multiple comorbidities including ulcerative colitis on mesalamine as well as intellectual disability came into the hospital was diagnosed with UTI and COVID infection. Labs showed mild iron deficiency but marker for hemolysis including LDH and indirect bilirubin was elevated. Clinically denies any bleeding. There is a possibility of autoimmune hemolytic anemia with underlying COVID infection. I will order haptoglobin and direct Pedro test. Hemoglobin stable and no need for treatment towards possible hemolytic anemia at this time. We will follow-up in the office. I have provided him my office information for follow-up. HPI Data of Consult Date/Time: 09/22/24 12:59 Requesting Physician: Robert Mason MD Primary Care Provider: Matthias Chapmna Consult Narrative Narrative: Pal Carolina is a 59 year old male Consulted for possible hemolytic anemia. Patient has a history of hydrocephalus, obesity and intellectual disability had recent hospitalization at [facility] for dehydration and suspected GI bleed with symptomatic anemia. Patient has history of ulcerative colitis and receiving mesalamine. Patient is a poor historian. Labs on admission showed hemoglobin of 5.2. Iron level was slightly low At 35 and iron saturation of 18%. Indirect bilirubin was elevated at 1.8 and LDH was elevated 423. Reticulocyte count fraction was elevated at 20.3. CTA chest showed no evidence of appendicitis, diverticulitis or intestinal obstruction. There was no evidence of pulmonary embolism. There is a possibility of cystitis. He was also diagnosed with non STEMI. He was also diagnosed with COVID infection. GI service was also consulted and repeat endoscopy and colonoscopy was not indicated. Review of Systems 2 Review of Systems: Review of system as per HPI otherwise negative [facility] Past Medical History Medical History (Updated 09/20/24 @ 16:32 by Colten Camargo MD) Ulcerative colitis GERD with esophagitis Chronic anemia Intellectual disability Surgical History Surgical History (Updated 09/18/24 @ 04:27 by Joselin Bernardo DO) History of colonoscopy (08/2024) History of esophagogastroduodenoscopy (EGD) (08/2024) Family History Family History Grandparent Cancer Mother Cirrhosis of liver Unknown Diabetes mellitus Social History Social History (Updated 09/18/24 @ 04:35 by Joselin Bernardo DO) Social History: Until September 03 2024 the patient lived in his own residence. He is single and does not have children. He stated that his aunt and uncle had lives with him prior but his uncle in his aunt had orthopedic surgery and had to move. Patient states he has had ambulate with a walker for the last year (presume since 2023). Code status: DNR/DNI (per [facility] paperwork) Surrogate decision maker: Gianna Peters (aunt) Smoking status: Never smoker Alcohol intake: former Substance use: former Substance use type: marijuana Do You Feel Safe in your Home?: Yes Lack of Transportation: No Lack of Food: Never True Current Housing: I Have Housing Concerned About Future Housing: No Difficulty Paying Gas/Electric Bills: No Difficulty Paying for Meds: No Currently Unemployed: No Education: High School Diploma/GED Difficulty w/ Childcare or Family Care: No Spiritual care concerns: No Meds Home Medications and Allergies Home Medications ?Medication ?Instructions ?Recorded ?Confirmed ?Type acetaminophen 650 mg 650 mg PO Q4H PRN pain 09/18/24 09/18/24 History tablet,extended release mesalamine 1,000 mg rectal 1 g RECTAL HS 09/18/24 09/18/24 History suppository pantoprazole 40 mg tablet,delayed 40 mg PO BID 09/18/24 09/18/24 History release (Protonix) sodium chloride 1,000 mg soluble 1,000 mg PO BID 09/18/24 09/18/24 History tablet Allergies Allergy/AdvReac Type Severity Reaction Status Date / Time zinc Allergy Unknown UNKNOWN Verified 10/12/15 13:42 Vital Signs Vital Signs - 24 hr 09/21/24 14:00 09/21/24 16:00 09/21/24 20:00 Temperature 36.2 C L Pulse Rate 72 79 Respiratory Rate 18 Blood Pressure 118/59 L Pulse Oximetry 96 Oxygen Delivery Room Air Fraction of Inspired Oxygen 09/21/24 20:00 09/21/24 21:06 09/21/24 22:00 Temperature 36.5 C Pulse Rate 83 76 Respiratory Rate 18 Blood Pressure 105/72 Pulse Oximetry 96 97 Oxygen Delivery Room Air Fraction of Inspired Oxygen 21 09/22/24 00:00 09/22/24 04:00 09/22/24 06:00 Temperature 36.5 C Pulse Rate 82 81 79 Respiratory Rate 18 Blood Pressure 112/83 Pulse Oximetry 97 Oxygen Delivery Fraction of Inspired Oxygen 09/22/24 08:05 09/22/24 08:58 09/22/24 09:20 Temperature Pulse Rate 77 78 Respiratory Rate Blood Pressure Pulse Oximetry Oxygen Delivery Room Air Fraction of Inspired Oxygen Exam 2 Narrative: lungs are clear to auscultation bilaterally cardiovascular regular rate rhythm no murmurs abdomen soft nontender slightly distended bowel sounds are positive extremities no edema Results Labs 09/22/24 06:11 09/22/24 06:11 Labs: Short CBC 09/22/24 Range/Units 06:11 WBC 5.1 (4.5-10.0) K/mm3 Hgb 10.8 L (14.0-18.0) g/dL Hct 33.5 L (42.0-52.0) % Plt Count 216 (150-375) k/mm3 BMP 09/22/24 06:11 Sodium 135 L Potassium 3.1 L Chloride 106 Carbon Dioxide 24 BUN 20 Creatinine 0.73 Glucose 95 Calcium 7.1 L Liver Function 09/22/24 Range/Units 06:11 Total Bilirubin 1.8 H (0.2-1.3) mg/dL AST 43 (17-59) U/L ALT 20 (6-50) U/L Alkaline Phosphatase 71 (38-126) U/L Albumin 2.3 L (3.5-5.1) g/dL
--- NOTE | 2024-09-22 13:37 | PM.DS ---
DS: Admitting Diagnosis Discharge Date 09/22/24 Admitting Diagnosis Passed out during therapy DS: Discharge Diagnosis Discharge Diagnosis (1) Severe sepsis: Code(s): A41.9 - Sepsis, unspecified organism; R65.20 - Severe sepsis without septic shock Status: Acute (2) COVID-19: Code(s): U07.1 - COVID-19 Status: Acute (3) Anemia: Code(s): D64.9 - Anemia, unspecified Status: Acute (4) Urinary tract infection: Qualifiers: Hematuria presence: without hematuria Urinary tract infection type: acute cystitis Qualified Code(s): N30.00 - Acute cystitis without hematuria Code(s): N39.0 - Urinary tract infection, site not specified Status: Acute DS: Summary Hospital Course Hospital Course: 59-year-old male with past medical history intellectual disability, hydrocephalus, obesity, and recent hospitalization at [place] 09/03/2024 through 09/14/2024 for dehydration, suspected GI bleed with symptomatic anemia, following a fall at home with 2 days on the floor who presented to the ER from [facility] and rehab due to syncopal event during physical therapy. The patient is a extremely poor historian and thus majority of information was obtained from group home records and records from [facility]. The patient reports to me that he has been having a cough that is nonproductive and that he has been too weak to stand up. He tells me that that is why he is at the group home. However he could not tell me why she came into the ER he thought he was sent in because he could not stand up. Evidently during physical therapy the patient had a syncopal event and was diaphoretic. Evidently during the event patient had significant hypotension with blood pressures in the 70s over 30s according to EMS report. The patient's heart rates were also in the 130s. EKG demonstrated normal sinus rhythm. The patient denied any chest pain or acute injuries. In the ER his hemoglobin was noted to be 7.4. Initially is history from outside facility was not known which indicated recent GI blood loss Patient was unable to tell me if he had been having any black or bloody stools. He reports that he cannot swallow pills. He has terrible dentition with multiple teeth broken off at the gums. He has severe halitosis. He is extremely hard of hearing. In the ER patient was noted that elevated troponin. The patient was empirically started on heparin drip. On arrival to the ER the patient was noted to be tachycardic and tachypneic. EKG demonstrated nonspecific ST and T-wave abnormalities. He did receive a little over 30 mL/kilos bolus with a total of 4 L of isotonic fluids. Patient was noted to have a nonproductive cough. He also had leukopenia which was new compared to labs from the outside facility. CT abdomen and pelvis showed possible cystitis, patient was managed for sepsis from cystitis. Urine culture showed pansensitive E coli. sepsis resolved and patient discharged on 4 more days of Augmentin and Doxycycline. Cardiology was consulted for elevated Troponin and evaluation noted likely demand ischemic and ECHO showed EF 50% and no regional wall motion abnormalities. recommended medical management and patient discharged on Metoprolol and Lipitor. Also managed for anemia and GI was consulted, evaluated and noted possible hemolytic anemia for which Hematology was consulted and they evaluated and recommended outpatient follow up. Follow up with oncology as instructed. Completed 3 days of Remdesivir, continue follow up with ENT for external ear mass Folate level was low, patient discharge on folic acid. F/u with PCP in 3-5 days. F/u with GI, Cardiology and Hematology as instructed. Time Spent with Patient Time attestation: Total time spent providing and/or coordinating discharge services: DS: Data Data Completed and Pending Labs on day of discharge: Labs from last 24 hours 09/22/24 09/22/24 12:20 06:11 WBC 5.1 RBC 3.66 L Hgb 10.8 L Hct 33.5 L MCV 91.5 MCH 29.5 MCHC 32.2 RDW 17.9 H Plt Count 216 MPV 9.4 Immature Gran % (Auto) 0.8 H Neut % (Auto) 61.9 Lymph % (Auto) 26.1 [place] % (Auto) 5.1 Eos % (Auto) 5.5 H Baso % (Auto) 0.6 Lymph # (Auto) 1.32 [place] # (Auto) 0.3 Eos # (Auto) 0.3 Baso # (Auto) 0.0 Abs Immat Gran (auto) 0.04 H Absolute Neuts (auto) 3.1 Absolute Nucleated RBC 0.000 Nucleated RBC % 0.0 Haptoglobin Pending Sodium 135 L Potassium 3.1 L Chloride 106 Carbon Dioxide 24 Anion Gap 5 BUN 20 Creatinine 0.73 Estim Creat Clear Calc 111 Estimated GFR > 60 Glucose 95 Lactic Acid 0.9 Calcium 7.1 L Magnesium 2.2 Total Bilirubin 1.8 H AST 43 ALT 20 Alkaline Phosphatase 71 Total Protein 5.0 L Albumin 2.3 L Preliminary micro results at discharge 09/17/24 15:40 Blood Culture - Preliminary Blood 09/17/24 15:40 Blood Culture - Preliminary Blood Discharge Plan Discharge Attending physician on discharge: Robert Mason Consulting providers: Brian Vasques; Antonino Swanson Discharging Clinician: Robert Mason Anticipated Discharge Date/Time: 09/22/24 13:32 Patient Disposition: SNF Activity: as tolerated Diet: heart healthy Patient Instructions: Sepsis (GEN), Urinary Tract Infection in Older Adults (GEN) Patient Language: Solomon Islander Stand Alone Forms: General Discharge Information Follow-up/Referrals: Matthias Chapman [Other] (F?u with PCP as instructed ) Antonino Swanson MD [Physician] - (F/u with oncology as instructed ) Brian Vasques MD [Physician] - (F/u with cardiology as instructed ) Discharge Medications: New atorvastatin 40 mg Tablet 40 mg PO DAILY 30 Days Qty: 30 1RF metoprolol tartrate 25 mg Tablet 25 mg PO Q12HR 30 Days Qty: 60 1RF amoxicillin-pot clavulanate 875-125 mg tablet 1 tablet PO Q12H 4 Days Qty: 8 0RF folic acid 1 mg Tablet 1 mg PO DAILY 30 Days Qty: 30 1RF doxycycline hyclate 100 mg tablet 100 mg PO BID 4 Days Qty: 8 0RF Continued acetaminophen 650 mg tablet extended release 650 mg PO Q4H PRN (Reason: pain) mesalamine 1,000 mg suppository 1 g RECTAL HS Rx Instructions: take for 7 days start 09/15/24 end 09/21/24 pantoprazole [Protonix] 40 mg tablet,delayed release (DR/EC) 40 mg PO BID sodium chloride 1,000 mg tablet,soluble 1,000 mg PO BID Date of admission: 09/17/24 21:05 Primary Care Provider: Matthias Chapman Admitting Provider: Joselin Bernardo Attending physician on admission: Robert Mason Condition: Stable
[2024-09-22] MEDS: NEOMYCIN/POLYMYXIN/BACITRACIN OINTMENT PACKET 1 PACKET TOPICAL (14:13)
[2024-09-22] MEDS: DOXYCYCLINE HYCLATE 100 MG TABLET PO (14:14)
[2024-09-23 08:43] LABS: Haptoglobin 117 mg/dL (43-212)
[2024-09-26 02:33] LABS: Calprotectin, Stool 1330 mcg/g
== END 2024-09-22 15:35 | DRG 871 ==
LOC: ANHED 21:44 → ANHIMU 22:52 → ANH3MED 09-19 17:05
PROVIDERS: General Practice; Internal Medicine Cardiovascular Disease; Internal Medicine Gastroenterology; Internal Medicine Hematology & Oncology; Admitting Provider Internal Medicine; Emergency Provider Student in an Organized Health Care Education/Training Program; Visit Provider Internal Medicine
DX: A41.9 Sepsis, unspecified organism (principal); I21.A1 Myocardial infarction type 2; U07.1 COVID-19; G91.9 Hydrocephalus, unspecified; K51.90 Ulcerative colitis, unspecified, without complications; N30.00 Acute cystitis without hematuria; E22.2 Syndrome of inappropriate secretion of antidiuretic hormone; E87.20 Acidosis, unspecified; R65.20 Severe sepsis without septic shock; B96.20 Unspecified Escherichia coli [E. coli] as the cause of diseases classified elsewhere; D50.9 Iron deficiency anemia, unspecified; F79 Unspecified intellectual disabilities; E66.9 Obesity, unspecified; H91.90 Unspecified hearing loss, unspecified ear; H93.8X2 Other specified disorders of left ear; I95.9 Hypotension, unspecified; K21.00 Gastro-esophageal reflux disease with esophagitis, without bleeding; Z66 Do not resuscitate
CPT/HCPCS: 36415; 36430; 70450; 71045; 71275; 74177; 80053; 80061; 80076; 80202; 81001; 82330; 82565; 82607; 82728; 82746; 83010; 83540; 83550; 83605; 83615; 83690; 83735; 83993; 84132; 84145; 84484; 85014; 85018; 85025; 85027; 85046; 85610; 85730; 86140; 86850; 86880; 86900; 86901; 86923; 87040; 87086; 87186; 87637; 87641; 93005; 96361; 96365; 96366; 96367; 96375; 96376; 99291; A9270; C1751; C8929; J0248; J0692; J0696; J1644; J1940; J2470; J3370; J3411; J3475; J7050; J7120; J7121; P9016; P9047; Q9957; Q9967

== ENCOUNTER 2024-11-12 13:56 | Inpatient (IN) | payer MEDICARE, SELFPAY ==
[2024-11-12] VITALS (16 sets, daily range): BP systolic 119–158; BP diastolic 69–97; PULSE 97–108; RESP 15–32; TEMP 36.8; O2SAT 97–100; BMI 31.1
--- OUTSIDE RECORDS SUMMARY | 2024-11-12 13:59 | XMS_ITS | CONTINUITY OF CARE DOCUMENT ---
Author Name ludmila keys Address Unknown Organization [facility] Address [address] [place] [address] Phone [phone] Care Team Providers Care Cook Helper Vegetable Name Role Phone Miki GALAN, Renay Unavailable [phone] THONY GALAN, DELLA Unavailable [phone] INSURANCE PROVIDERS Payer name Policy type / Coverage type [place] red libertarian [place] [employer] Medicare [id number]
--- OUTSIDE RECORDS SUMMARY | 2024-11-12 13:59 | XMS_ITS | Data Portability ---
Author Organization [facility] Address [address] [place] [address] Assessment No assessment recorded. Plan of Treatment Reminders Order Date Submit Date Provider Last Modified By Organization Details Last Modified Time Details Appointments None recorded. Lab None recorded. Referral audiologis t referral - please call patient to schedule appt. thank you [email or web address], [address], 7 11:22:09 laryngolog y referral - Please call patient to schedule 2015 016 [email or web address] [facility], [address] [place] [address], [address], 7 09:13:30 Procedures None recorded. Surgeries None recorded. Imaging None recorded. Medication Orders amlodipine 10 mg tablet 2016 017 [facility] [id number], [address], 7 16:56:00 lisinopril 10 mg tablet 2016 017 [facility] [address], [address], 7 16:56:00 lisinopril 10 mg tablet 2016 017 [facility] [address], [address], 7 18:08:31 amlodipine 10 mg tablet 04/10/ 2017 04/10/2 017 [facility], [address] [place] [address], [address], 7 18:08:30 amlodipine 10 mg tablet 2015 016 [facility] [address], [address], 6 15:32:04 lisinopril 10 mg tablet 2015 016 [facility] [address], [address], 6 15:32:05 amlodipine 10 mg tablet 2015 016 [facility], [address] [place] [address], [address], 6 14:59:37 lisinopril 10 mg tablet 2015 016 [facility] [address], [address], 6 14:59:38 Patient TargetsNo targets recorded. Patient Instructions Encounter Date Encounter Id Patient Instructions Last Modified By Organization Details Last Modified Time 09/29/2015 [id number] hearing loss: care instructions ya Not available 09/29/2015 15:39:31 He will have regular F/U visit with neurologist for hia MS. sieh Not available 09/29/2015 14:59:08 03/29/2016 [id number] hearing loss: care instructions [email or web address] Not available 04/25/2016 12:53:32 09/30/2016 [id number] hearing loss: care instructions sieh Not available 09/30/2016 18:08:34 02/27/2017 [id number] learning about high blood pressure [email or web address] Not available 02/28/2017 10:09:04 05/27/2017 [id number] hearing loss: care instructions [email or web address] Not available 05/27/2017 17:34:24 Reason for Referral Laryngology Referral for Exa cerbation of multiple sclerosis Please call patient to schedule Referring Physician: Kenia Jara, Internal Medicine, Encounter Date: 09/29/2015 Portable Router Operator Referral for Hea ring disorder please call patient to schedule appt. thank you Referring Physician: Kenia Jara, Internal Medicine, Encounter Date: 02/27/2017 Problems Name Problem SNOMED Code Status Onset Date Resolution Date Notes Provider Name and Address Organization Details Recorded Time Hyperten sive disorder 99515540 Active Kenia Jara MD Attn: Accountin g,[address] [facility], [place], [address], [place] - [facility] 6 15:31:58 Exacerba tion of multiple sclerosi s 284833693 Completed 09/30/2016 Removal Reason: Missed diagnosis in the past. Kenia Jara MD Attn: Accountin g,[address] [facility], [place], [address], [place] [facility] 7 18:06:16 Hearing loss 69596032 Active Kenia Jara MD Attn: Accountin g,[address] [facility], [place], [address], [place] [facility] 6 15:31:58 Hydrocep halus 800627216 Active Kenia Jara MD Attn: Accountin g,[address] [facility], [place], [address], [place] [facility] 6 15:31:58 Problem Notes None recorded. Medical Equipment None Reported. Allergies Allergen ID Allergen Name Allergen Category Reaction Reaction Severity Criticality Documentation Date Start Date Code Code System Note Provider Name and Address Organization Details Recorded Time 52284 zinc environme nt,medica tion Not available Not available Not available 09/29/2015 70999 RxNorm September Niki YONI [facility], [place] - [facility] 6 14:28:19 Medications Name Sig Start Date Stop Date [...] Updated DateTime 7 170.18 cm 42.9 kg/m2 328029. 31 g 97.7 [degF] 98 % 98 % 98 /min 114 mm[Hg] 70 mm[Hg] Curt Chavarria MA [facility] 7 16:29:45 Date Recorded Body temperature Body height Body weight Respiratory rate Heart rate Body mass index (BMI) Systolic blood pressure Diastolic blood pressure Provider Name and Address Organization Details Last Updated DateTime 6 98.7 [degF] 170.18 cm 609946. 96194 g 22 /min 90 /min 40.3 kg/m2 110 mm[Hg] 74 mm[Hg] September Niki [facility] 6 14:28:19 Date Recorded Body mass index (BMI) Body weight Oxygen saturation Oxygen saturation in Arterial blood by Pulse oximetry Body temperature Heart rate Body height Systolic blood pressure Diastolic blood pressure Provider Name and Address Organization Details Last Updated DateTime 6 42.9 kg/m2 898505. 030349 g 99 % 99 % 98.1 [degF] 107 /min 170.18 cm 114 mm[Hg] 82 mm[Hg] Curt Chavarria MA [facility] 6 15:12:01 Date Recorded Body height Body weight Body mass index (BMI) Body temperature Oxygen saturation Oxygen saturation in Arterial blood by Pulse oximetry Heart rate Systolic blood pressure Diastolic blood pressure Provider Name and Address Organization Details Last Updated DateTime 7 170.18 cm 844629. 68 g 43.5 kg/m2 97.8 [degF] 99 % 99 % 91 /min 114 mm[Hg] 72 mm[Hg] Curt Chavarria MA [facility] 7 17:56:58 Date Recorded Body height Body mass index (BMI) Body weight Heart rate Body temperature Oxygen saturation Oxygen saturation in Arterial blood by Pulse oximetry Systolic blood pressure Diastolic blood pressure Provider Name and Address Organization Details Last Updated DateTime 7 170.18 cm 42.3 kg/m2 109957. 94 g 88 /min 97.7 [degF] 100 % 100 % 116 mm[Hg] 70 mm[Hg] Felipa Ugalde MA [facility] 7 15:16:37 Social History Question Answer Notes LastModified by Organizat ion Details LastModified Time Tobacco Smoking Status Former Smoker Ambreen YONI Prince michi, [facility] 09/29/2015 14:28:18 What Is Your Level Of Caffeine Consumption? None Information not available 09/29/2015 How Much Tobacco Do You Chew? None Information not available 09/29/2015 What Was The Date Of Your Most Recent Tobacco Screening? 02/27/2017 Information n ot available 01/14/2019 How Much Tobacco Do You Smoke? No Information not available 09/29/2015 Sex: Unknown Functional Status Question Answer Note LastModified by Organization D etails LastModified Time What is your level of alcohol consumption? None Information not available 09/29/2015 Mental Status None recorded. Family History Relationship Description Onset Age of this Age Resolved Age Notes LastModified by Organization Details LastModified Time Mother Transplantat ion of liver asavala Not available 01/2016 14:28:19 Medical History Condition Response Coronary Artery Disease N Other N High Blood Pressure N Atrial Fibrillation N Kidney or Bladder Problems N Thyroid Problems N GI Problems N Depression N COPD N Blood Clots N Skin Problems N Anemia N Heart Attack ([place]) N Anxiety Disorder N Diabetes N Muscle, [...] virus, quadrivalent, preservative 7 completed Not Available [employer] 07/10/2019 02:33:58 Past Encounters Encounter ID Performer Location Encounter Start Date Encounter Closed Date Diagnosis/Indication Diagnosis SNOMED-CT Code Diagnosis ICD10 Code Diagnosis Note [id number] MD Solo Valiente (Adult Med) [address] [place] [phone] 09/29/2015 14:05:00 09/29/2015 14:53:38 Hypertensive disorder 90646910 I10 Exacerbati on of multiple sclerosis 151485490 G35 Hearing loss 06001023 H9 1.93 [id number] MD Solo Valiente (Adult Med) [address] [place] [phone] 03/29/2016 14:57:21 03/29/2016 15:34:05 Hearing loss 17807177 H91.93 Hypertensive disorder 38 481618 I10 Hydrocephalus 006828349 G91.9 [id number] MD Solo Valiente (Adult Med) [address] [place] [phone] 09/30/2016 16:10:41 10/01/2016 10:49:35 Hydrocephalus 111496628 G91.9 Stable. Hypertensive disorder 38 357314 I10 Low salt diet. Hearing loss 77670047 H9 1.93 Right ear hearing loss, stable, no need for hearing aid as he was told in the past. [id number] MD Solo Valiente (Adult Med) [address] [place] [phone] 02/27/2017 15:00:27 02/27/2017 15:47:36 Essential hypertension 29073256 I10 Well controlled , to continue same medication s: amlodipine 10 mg/day and lisinopril 10 mg. Will get flu shot today. Lo salt diet. Hearing disorder 4271205 05 H91.91 Especially on the right side. He was born prematuall y. He had seen ENT Dr. Elam, but no heaing aids, he wants second opinion. [id number] MD Solo Valiente (Adult Med) [address] [place] [phone] 05/27/2017 16:09:56 05/27/2017 16:59:04 Hearing loss 06543386 H91.93 Right ear hearing loss, stable, no need for hearing aid as he was told in the past. Hydrocephalus 218095767 G91.9 Stable. Has been evaluated bt neurologis t/neurosur jelly, and was told no interventi on will benjavier hin and no difference in out outcome as hr understood . Hypertensive disorder 38 280486 I10 Low salt diet. Health Concerns Section Related Observation LastModified by Organization Detai ls LastModified Time None Recorded Concern Status LastModified by Organization Details LastModified Time None Recorded Advance Directives Directive None Recorded Payers Encounter Date Sequence Insurance Name Policy Number Policy Ward Covered Member ID Ward Member ID Guarantor Name 09/29/2015 1 [facility] (MEDICAID HMO) [id number] Pal Carolina [id number] Pal Carolina 03/29/2016 1 [facility] (MEDICAID HMO) [id number] Pal Carolina [id number] Pal Carolina 09/30/2016 1 [facility] (MEDICAID HMO) [id number] Pal Carolina [id number] Pal Carolina 02/27/2017 1 [facility] (MEDICAID HMO) [id number] Pal Carolina [id number] Pal Carolina 05/27/2017 1 [facility] (MEDICAID HMO) [id number] Pal Carolina [id number] Pal Carolina Notes Date Note Type Note Provider Name and Address Organization Details Recorded Time 09/29/2015 text/html 1. First encount er. 2. hypertension. 3. Recurrent MS. Mother is here, had been treated at [facility], also has been evaluted byneurologist Dr. Oscar Mcghee recently.. Kenia Jara MD Attn: [address]ing[address] [place], [address], [facility] 09/29/2015 14:59:35 03/29/2016 text/html 1. F/U visit. 2. RIGHT EAR HEARING LOSS, HAD SEEN ENT SPECIALIST DR. PHILLIPS BUT NOT WORTHY TO PROSUE THE HEARING AID. 3. HROCEPHALUS, BUT NO OBVIOUS BENEFIT FOR SHUNT ACCORDING TO THE NEUROSURGEON'S ADVICES. 3. BP F/U. HE GOT HIS ANNUL FLU SHOT AT HOSPITAL RECENTLY. ALLERGIC TO ZINC. NOSPECIAL COMPLAINTS OTHERWISW. Kenia Jara MD Attn: [address]ing[address] [facility], [place], [address], [facility] 03/29/2016 15:32:00 02/27/2017 text/html BP ia well controlled, has enough medications , allergic to Zinc, not a smoker, nor a alcohol drinker. Kenia Jara MD Attn: Accounting,[address] [facility], [place], [address], [facility] 02/27/2017 15:38:11 05/27/2017 text/html F/U , just got refills of medications., allergic to Zinc, no special complaints. Kenia Jara MD Attn: Accounting,[address] [facility], [place], [address], [facility] 05/27/2017 16:56:03
[2024-11-12] MEDS: LIDOCAINE 2% GEL UROJET 10 ML PKG ×2 (14:30→15:09)
--- OUTSIDE RECORDS SUMMARY | 2024-11-12 14:34 | XMS_ITS | CONTINUITY OF CARE DOCUMENT ---
Author Name ludmila keys Address Unknown Organization [facility] Address [address] [place] [address] Phone [phone] Care Team Providers Care Glass Enamel Mixer Name Role Phone Miki GALAN, Renay Unavailable THONY GALAN, DELLA Unavailable [phone] INSURANCE PROVIDERS Payer name Policy type / Coverage type [place] red democrat ID [place] [employer] Medicare [id number]
[2024-11-12 15:14] LABS: Hemoglobin 9.6 g/dL (14.0-18.0); Mean Corpuscular Hemoglobin 28.7 pg (26-34); Mean Corpuscular Volume 89.6 fl (80-100); Mean Platelet Volume 9.2 fl (7.4-10.4); Platelet Count Result 212 k/mm3 (150-375); Red Blood Count 3.35 M/mm3 (4.6-6.20); Red Cell Distribution Width 17.7 % (11.5-14.5); White Blood Count 3.4 K/mm3 (4.5-10.0)
[2024-11-12 15:25] LABS: Alanine Aminotransferase 16 U/L (6-50); Alkaline Phosphatase 78 U/L (38-126); Anion Gap 10 mmol/L (4-12); Aspartate Amino Transferase 24 U/L (17-59); Bilirubin,Total 1.3 mg/dL (0.2-1.3); Blood Urea Nitrogen 36 mg/dL (9-20); Calcium 7.9 mg/dL (8.4-10.2); Carbon Dioxide 22 mmol/L (22-30); Chloride 104 mmol/L (98-107); Estimated CRCL calculation 33 ml/min; Estimated Glomerular Filt Rate 27; Glucose 173 mg/dL (65-110); Potassium 3.7 mmol/L (3.4-5.0); Sodium 136 mmol/L (137-145)
[2024-11-12 15:52] LABS: Add Urine Microscopic? YES; Appearance Urine Cloudy (Clear); Bacteria Urine 4+ /hpf; Bilirubin Urine Negative (Negative); Blood Urine 3+ (Negative); Color Urine Orange (Yellow); Glucose Urine UA Negative (Negative); Ketones Urine Negative (Negative); Leukocyte Esterase Ur 3+ LEU/UL (Negative); Need Manual Microscopic Reviewed; Nitrate Urine Negative (Negative); Protein Urine 3+ mg/dL (Negative); RBC Urine 51-100 /hpf (0-2); Specific Grav Ur 1.012 (1.001-1.035); Squamous Epithelial Cell Urine None Seen /hpf (Few); Urobilinogen Urine 0.2 mg/dL (<2.0); WBC Urine >100 /hpf (0-3); pH Urine 8.5 (5.0-9.0)
[2024-11-12 15:59] LABS: Band Neutrophils Percent 4 % (0-6); Basophils Percent Manual 0 % (0-1); Eosinophils Percent Manual 0 % (0-4); Lymphocytes Absolute Manual 0.57 K/mm3 (1.1-4.5); Lymphocytes Percent Manual 17 % (18-44); Monocytes Absolute Manual 0.17 K/mm3 (0.1-0.90); Monocytes Percent Manual 5 % (3-9); Neutrophils Absolute Manual 2.65 K/mm3 (1.3-6.7); Neutrophils Percent Manual 74 % (46-73); Total Cells Counted 100
[2024-11-12 16:00] LABS: Anisocytosis 1+; Platelet Estimate Adequate (Adequate)
[2024-11-12 16:01] LABS: Schistocytes None Seen
--- NOTE | 2024-11-12 16:10 | ED_ITS ---
HPI - General Adult General Chief complaint: Urogenital-Male Stated complaint: Urogenital Time Seen by Provider: 11/12/24 14:06 History of Present Illness HPI narrative: Patient is a 59-year-old male who presents the ER with inability urinate. He does not think he has urinated in 1 week. He had a To catheter removed 2 weeks ago. Denies any fevers chills or sweats. He does have significant lower abdominal discomfort that has been worsening. Patient is a poor historian, he does have documented intellectual disability. He was recently hospitalized here for septic shock with pansensitive E coli. Related Data Home Medications ?Medication ?Instructions ?Recorded ?Confirmed ?Last Taken ?Type acetaminophen 650 mg 650 mg PO Q4H PRN pain 09/18/24 09/18/24 Unknown History tablet,extended release mesalamine 1,000 mg rectal 1 g RECTAL HS 09/18/24 09/18/24 09/17/24 00:15 History suppository pantoprazole 40 mg tablet,delayed 40 mg PO BID 09/18/24 09/18/24 09/17/24 07:30 History release (Protonix) sodium chloride 1,000 mg soluble 1,000 mg PO BID 09/18/24 09/18/24 09/17/24 07:30 History tablet Allergies Allergy/AdvReac Type Severity Reaction Status Date / Time zinc Allergy Unknown UNKNOWN Verified 10/12/15 13:42 Review of Systems 2 Review of Systems: All systems reviewed & are unremarkable except as noted in HPI and below Constitutional: Constitutional: Reports no additional constitutional complaints Cardiovascular: Cardiovascular: Reports no additional cardiovascular complaints Respiratory: Respiratory: Reports no additional respiratory complaints Gastrointestinal: Gastrointestinal: Reports no additional gastrointestinal complaints Genitourinary: Genitourinary: Reports no additional male genitourinary complaints [facility] Past Medical History Medical History (Updated 11/12/24 @ 20:29 by Ravin Nicolas MD) Ulcerative colitis GERD with esophagitis Chronic anemia Intellectual disability Surgical History Surgical History (Updated 09/18/24 @ 04:27 by Joselin Bernardo DO) History of colonoscopy (08/2024) History of esophagogastroduodenoscopy (EGD) (08/2024) Family History Family History Grandparent Cancer Mother Cirrhosis of liver Unknown Diabetes mellitus Social History Social History (Updated 09/18/24 @ 04:35 by Joselin Bernardo DO) Social History: Until September 03 2024 the patient lived in his own residence. He is single and does not have children. He stated that his aunt and uncle had lives with him prior but his uncle in his aunt had orthopedic surgery and had to move. Patient states he has had ambulate with a walker for the last year (presume since 2023). Code status: DNR/DNI (per senior care paperwork) Surrogate decision maker: Gianna Peters (aunt) Smoking status: Never smoker Alcohol intake: former Substance use: former Substance use type: marijuana Do You Feel Safe in your Home?: Yes Lack of Transportation: No Lack of Food: Never True Current Housing: I Have Housing Concerned About Future Housing: No Difficulty Paying Gas/Electric Bills: No Difficulty Paying for Meds: No Currently Unemployed: No Education: High School Diploma/GED Difficulty w/ Childcare or Family Care: No Spiritual care concerns: No Exam 2 Narrative: GENERAL: Chronically ill-appearing, well-nourished, and in no acute distress. HEAD: Normocephalic, atraumatic. ENT: Mucous membranes moist. NECK: Supple. CHEST: Clear to auscultation. No respiratory distress. HEART: Tachycardic regular. Normal peripheral pulses. ABDOMEN: Soft, distended bladder below the umbilicus, tenderness in this suprapubic region, nondistended. EXTREMITIES: Normal range of motion. No edema. SKIN: Warm, dry, no rash. NEURO: Alert and oriented x3. PSYCH: Normal mood and affect. Course Course Emergency Course: 1500 mL of bloody urine drained with 3 way To catheter. CBI initiated. Clots are draining. IV ceftriaxone for UTI. Admit for observation for postobstructive renal failure and UTI. Urology consulted. Vital Signs Vital signs: Vital Signs Temperature 98.3 F 11/12/24 13:57 Pulse Rate 102 H 11/12/24 13:57 Respiratory Rate 18 11/12/24 13:57 Blood Pressure 128/82 11/12/24 13:57 Pulse Oximetry 100 11/12/24 13:57 Oxygen Delivery Room Air 11/12/24 13:57 Temperature 98.3 F 11/12/24 13:57 Pulse Rate 105 H 11/12/24 20:15 Respiratory Rate 15 11/12/24 20:15 Blood Pressure 128/88 11/12/24 20:15 Pulse Oximetry 100 11/12/24 20:15 Oxygen Delivery Room Air 11/12/24 13:57 Medical Decision Making Vital Signs Vital Signs: Vital Signs Temperature 98.3 F 11/12/24 13:57 Pulse Rate 102 H 11/12/24 13:57 Respiratory Rate 18 11/12/24 13:57 Blood Pressure 128/82 11/12/24 13:57 Pulse Oximetry 100 11/12/24 13:57 Oxygen Delivery Room Air 11/12/24 13:57 Temperature 98.3 F 11/12/24 13:57 Pulse Rate 105 H 11/12/24 20:15 Respiratory Rate 15 11/12/24 20:15 Blood Pressure 128/88 11/12/24 20:15 Pulse Oximetry 100 11/12/24 20:15 Oxygen Delivery Room Air 11/12/24 13:57 Lab Data 11/12/24 15:08 11/12/24 15:08 Labs: Lab Results 11/12/24 11/12/24 Range/Units 15:08 15:17 WBC 3.4 L (4.5-10.0) K/mm3 RBC 3.35 L (4.6-6.20) M/mm3 Hgb 9.6 L (14.0-18.0) g/dL Hct 30.0 L (42.0-52.0) % MCV 89.6 (80-100) fl MCH 28.7 (26-34) pg MCHC 32.0 (32-36) g/dl RDW 17.7 H (11.5-14.5) % Plt Count 212 (150-375) k/mm3 MPV 9.2 (7.4-10.4) fl Immature Gran % (Auto) Not Reportable Neut % (Auto) Not Reportable Lymph % (Auto) Not Reportable [place] % (Auto) Not Reportable Eos % (Auto) Not Reportable Baso % (Auto) Not Reportable Lymph # (Auto) Not Reportable [place] # (Auto) Not Reportable Eos # (Auto) Not Reportable Baso # (Auto) Not Reportable Abs Immat Gran (auto) Not Reportable Absolute Neuts (auto) Not Reportable Absolute Nucleated RBC Not Reportable Total Counted 100 Neutrophils % (Manual) 74 H (46-73) % Band Neutrophils % 4 (0-6) % Lymphocytes % (Manual) 17 L (18-44) % Monocytes % (Manual) 5 (3-9) % Eosinophils % (Manual) 0 (0-4) % Basophils % (Manual) 0 (0-1) % Nucleated RBC % Not Reportable Abs Neuts (Manual) 2.65 (1.3-6.7) K/mm3 Abs Lymphs (Manual) 0.57 L (1.1-4.5) K/mm3 Abs Monocytes (Manual) 0.17 (0.1-0.90) K/mm3 Absolute Eos (Manual) 0.00 L (0.02-0.50) K/mm3 Abs Basophils (Manual) 0.00 (0.0-0.1) K/mm3 Platelet Estimate Adequate (Adequate) Anisocytosis 1+ Schistocytes None seen Sodium 136 L (137-145) mmol/L Potassium 3.7 (3.4-5.0) mmol/L Chloride 104 (98-107) mmol/L Carbon Dioxide 22 (22-30) mmol/L Anion Gap 10 (4-12) mmol/L BUN 36 H D (9-20) mg/dL Creatinine 2.48 H (0.7-1.3) mg/dL Estim Creat Clear Calc 33 ml/min Estimated GFR 27 L (59 - ) Glucose 173 H (65-110) mg/dL Calcium 7.9 L (8.4-10.2) mg/dL Total Bilirubin 1.3 (0.2-1.3) mg/dL AST 24 (17-59) U/L ALT 16 (6-50) U/L Alkaline Phosphatase 78 (38-126) U/L Total Protein 7.0 (6.3-8.2) g/dL Albumin 3.0 L (3.5-5.1) g/dL Urine Color [place] H (Yellow) Urine Appearance Cloudy H (Clear) Urine pH 8.5 (5.0-9.0) Ur Specific [place] 1.012 (1.001-1.035) Urine Protein 3+ H (Negative) mg/dL Urine Glucose (UA) Negative (Negative) mg/dL Urine Ketones Negative (Negative) mg/dL Ur Blood (Man) 3+ H (Negative) Urine Nitrate Negative (Negative) Urine Bilirubin Negative (Negative) Urine Urobilinogen 0.2 (<2.0) mg/dL Add Ur Microanalysis Reviewed Leukocyte Esterase Rfl 3+ H (Negative) TIFFANY/UL Urine RBC 51-100 H (0-2) /hpf Urine WBC >100 H (0-3) /hpf Ur Squamous Epith Cells None seen (Few) /hpf Urine Bacteria 4+ H /hpf Urine Casts 3-5 Discharge Plan Discharge Clinical Impression: SUZANNE (acute kidney injury), Acute urinary retention, Hematuria, Acute UTI Patient Disposition: Still a Patient Condition: Stable
--- NOTE | 2024-11-12 17:52 | PC.NURSE ---
Bag 1 completed, bag 2 finishing, with remainder of 200mls left, bag 3 started at this time.
[2024-11-12] MEDS: SODIUM CHLORIDE 0.9% IV 1,000 ML 125 ML IV CONT (18:26)
--- NOTE | 2024-11-12 18:35 | PC.NURSE ---
Bag 4 started at this time.
--- NOTE | 2024-11-12 18:53 | PC.NURSE ---
Bag 3 completed. Bag 4 running, and Bag 5 hung at this time.
--- NOTE | 2024-11-12 21:02 | ADMGEN ---
This patient, Pal Carolina, was admitted to 3 [facility] Surg Room 331-02. Patient/family oriented to hospital policies and general routines including ID bracelet, bed and alarms, visiting hours, pain management, procedures, bathroom and other care routines, personal items, smoking policy, room service/diet, and visiting hours. Information on how to activate the Rapid Response Team has been discussed. Patient/Family are encouraged to report perceived risks to care and to ask questions if they do not understand what they are told or what they should do.
--- NOTE | 2024-11-12 21:37 | PM.IMHP ---
H&P: HPI History of Present Illness Date/Time: 11/12/24 21:37 Chief Complaint: Hematuria Narrative: 59-year-old male with a past medical history of intellectual disability, holoprosencephaly, ulcerative colitis, obesity, and recent hospitalization at our facility for sepsis who presented back from [facility] via EMS due to hematuria. I had admitted the patient at that time for his The patient was hospitalized from the through the at our facility. I had admitted the patient at that time for symptomatic anemia following his syncopal episode. During initial assessment at that time he had marked urinary retention. He had a catheter placed and was treated for UTI, COVID and sepsis. He was discharged back to the intermediate. Two weeks ago his catheter was removed. The patient had been discharged on Augmentin. Evidently after finishing the Augmentin he did also receive a week's course of Bactrim which was completed about 10 days ago. And evidently then received a course of levofloxacin. Per intermediate staff they report patient had been having hematuria for 2 days. Patient was afebrile on arrival to the ER. The patient reports that he was brought in because the nursing staff noted that his abdomen was vague but he did not have any pain or discomfort. He states that he does not know if he was urinating more frequently than usual because he always urinates in his depends. He denies having any pain or complaints. He is alert oriented to person and the fact that he is in the hospital. States he does not usually know the month or year. Review of Systems Review of Systems: Review of systems essentially unobtainable due to patient's history of intellectual disability he is overall a poor historian. [facility] Past Medical History Medical History (Updated 11/13/24 @ 05:19 by Joselin Bernardo DO) Mass of left ear canal Needs outpatient follow-up that was recommended during admission in August of 2024 Non-STEMI (non-ST elevated myocardial infarction) Due to demand ischemia from sepsis and severe anemia. 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 He is single and does not have children. He stated that his aunt and uncle had lives with him prior but his uncle in his aunt had orthopedic surgery and had to move. Patient states he has had ambulate with a walker for the last year (presume since 2023). Code status: DNR/DNI (per intermediate paperwork) Surrogate decision maker: Gianna Peters (aunt) Smoking status: Never smoker Alcohol intake: former Drinks per week: 3 Substance use: former Substance use type: marijuana Do You Feel Safe in your Home?: Yes Lack of Transportation: No Lack of Food: Never True Current Housing: Decline to Answer Concerned About Future Housing: Decline to Answer Difficulty Paying Gas/Electric Bills: No Difficulty Paying for Meds: YES Currently Unemployed: No Education: High School Diploma/GED Difficulty w/ Childcare or Family Care: No Spiritual care concerns: No Meds Home Medications and Allergies Home Medications ?Medication ?Instructions ?Recorded ?Confirmed ?Type acetaminophen 650 mg 650 mg PO Q4H PRN pain 09/18/24 11/12/24 History tablet,extended release pantoprazole 40 mg tablet,delayed 40 mg PO BID 09/18/24 11/12/24 History release (Protonix) levofloxacin 500 mg tablet 500 mg PO DAILY 11/12/24 11/12/24 History Allergies Allergy/AdvReac Type Severity Reaction Status Date / Time zinc Allergy Unknown UNKNOWN Verified 11/12/24 21:07 Vital Signs Vital Signs - 24 hr 11/12/24 13:57 11/12/24 14:02 11/12/24 14:16 Temperature 98.3 F Pulse Rate 102 H 100 101 H Respiratory Rate 18 19 25 H Blood Pressure 128/82 145/89 H Pulse Oximetry 100 100 Oxygen Delivery Room Air 11/12/24 14:31 11/12/24 14:47 11/12/24 15:04 Temperature Pulse Rate 101 H 102 H 99 Respiratory Rate 31 H 32 H 24 H Blood Pressure 119/69 158/97 H 124/74 Pulse Oximetry 100 Oxygen Delivery 11/12/24 15:45 11/12/24 16:01 11/12/24 16:02 Temperature Pulse Rate 102 H 104 H 104 H Respiratory Rate 19 20 20 Blood Pressure 127/77 Pulse Oximetry 100 100 100 Oxygen Delivery 11/12/24 17:04 11/12/24 17:59 11/12/24 18:02 Temperature Pulse Rate 108 H Respiratory Rate 21 H Blood Pressure 132/81 Pulse Oximetry 97 100 100 Oxygen Delivery 11/12/24 18:17 11/12/24 18:54 11/12/24 20:15 Temperature Pulse Rate 105 H Respiratory Rate 15 Blood Pressure 128/88 Pulse Oximetry 100 100 100 Oxygen Delivery Exam Narrative: Weight 90.2 kg BMI 31.1 Const: Other: Obese, appears older than stated age, poor hygiene HENMT: Other: Mucous membranes are tacky, multiple missing teeth some a which are broken off at the gumline with multiple dental caries in his remaining teeth, crowded posterior oropharynx Eyes: Other: Positive conjunctival pallor, mild scleral icterus, pupils are equal and reactive Neck: Other: No JVD, left anterior cervical lymphadenopathy at the base of the neck that is nontender but small pea-sized Resp: Other: Decreased breath sounds at the bases, no increased work of breathing Cardio: Other: Tachycardic, regular rhythm, with 2+ bilateral radial pedal pulses, no murmur GI: Other: Soft, nontender, nondistended, normoactive bowel sounds : Other: 3 way To catheter in place with Kevin-Aid red colored urine draining in CBI Skin: Other: Thick yellow overgrown toenails, generalized pallor, normal temperature to touch, abrasion she posterior left forearm Neuro: Other: Alert oriented to person, place and reason for admission but overall poor historian, speech is clear but fluent and conversational Extrem: Other: No clubbing or cyanosis, 2+ pitting edema lower extremities Psych: Other: Pleasantly confused, cooperative, poor judgment and insight H&P: Results Labs Labs: Laboratory Tests 11/12/24 15:08 11/12/24 15:08 11/12/24 11/12/24 15:08 15:17 WBC 3.4 L RBC 3.35 L Hgb 9.6 L Hct 30.0 L MCV 89.6 MCH 28.7 MCHC 32.0 RDW 17.7 H Plt Count 212 MPV 9.2 Immature Gran % (Auto) Not Reportable Neut % (Auto) Not Reportable Lymph % (Auto) Not Reportable [place] % (Auto) Not Reportable Eos % (Auto) Not Reportable Baso % (Auto) Not Reportable Lymph # (Auto) Not Reportable [place] # (Auto) Not Reportable Eos # (Auto) Not Reportable Baso # (Auto) Not Reportable Abs Immat Gran (auto) Not Reportable Absolute Neuts (auto) Not Reportable Absolute Nucleated RBC Not Reportable Total Counted 100 Neutrophils % (Manual) 74 H Band Neutrophils % 4 Lymphocytes % (Manual) 17 L Monocytes % (Manual) 5 Eosinophils % (Manual) 0 Basophils % (Manual) 0 Nucleated RBC % Not Reportable Abs Neuts (Manual) 2.65 Abs Lymphs (Manual) 0.57 L Abs Monocytes (Manual) 0.17 Absolute Eos (Manual) 0.00 L Abs Basophils (Manual) 0.00 Platelet Estimate Adequate Anisocytosis 1+ Schistocytes None seen Sodium 136 L Potassium 3.7 Chloride 104 Carbon Dioxide 22 Anion Gap 10 BUN 36 H D Creatinine 2.48 H Estim Creat Clear Calc 33 Estimated GFR 27 L Glucose 173 H Calcium 7.9 L Total Bilirubin 1.3 AST 24 ALT 16 Alkaline Phosphatase 78 Total Protein 7.0 Albumin 3.0 L Urine Color [place] H Urine Appearance Cloudy H Urine pH 8.5 Ur Specific [place] 1.012 Urine Protein 3+ H Urine Glucose (UA) Negative Urine Ketones Negative Ur Blood (Man) 3+ H Urine Nitrate Negative Urine Bilirubin Negative Urine Urobilinogen 0.2 Add Ur Microanalysis Reviewed Leukocyte Esterase Rfl 3+ H Urine RBC 51-100 H Urine WBC >100 H Ur Squamous Epith Cells None seen Urine Bacteria 4+ H Urine Casts 3-5 Assessment and Plan Assessment and plan (1) Acute urinary retention: Code(s): R33.8 - Other retention of urine Status: Acute (2) SUZANNE (acute kidney injury): Code(s): N17.9 - Acute kidney failure, unspecified Status: Acute (3) Acute UTI: Code(s): N39.0 - Urinary tract infection, site not specified Status: Acute (4) Hematuria: Qualifiers: Hematuria type: gross Qualified Code(s): R31.0 - Gross hematuria Code(s): R31.9 - Hematuria, unspecified Status: Acute (5) Chronic anemia: Code(s): D64.9 - Anemia, unspecified Status: Acute (6) GERD with esophagitis: Qualifiers: Esophagitis bleeding: unspecified whether hemorrhage Qualified Code(s): K21.00 - Gastro-esophageal reflux disease with esophagitis, without bleeding Code(s): K21.00 - Gastro-esophageal reflux disease with esophagitis, without bleeding Status: Acute (7) Ulcerative colitis: Qualifiers: Digestive disease complication type: unspecified complication Ulcerative colitis location: unspecified ulcerative colitis location Qualified Code(s): K51.919 - Ulcerative colitis, unspecified with unspecified complications Code(s): K51.90 - Ulcerative colitis, unspecified, without complications Status: Acute (8) Leukopenia: Qualifiers: Leukopenia type: unspecified Qualified Code(s): D72.819 - Decreased white blood cell count, unspecified Code(s): D72.819 - Decreased white blood cell count, unspecified Status: Acute Plan The patient presented with recurrent urinary retention. To catheter was placed in the ER patient was placed on CBI. He urine specimen was obtained. Patient was placed on empiric antibiotic therapy with Rocephin. He had recent UTI in August that grew out E coli that was pansensitive. Will continue daily Rocephin. Urine cultures are pending. Will repeat CBC in a.m. as does demonstrate some leukopenia likely due to infection.Patient does have acute kidney injury due to his urinary retention. Urology has been consulted. Will place on Flomax daily. There may be some component of dehydration as well. Will continue IV fluid hydration and repeat electrolyte panel in a.m.. Will avoid nephrotoxic medications. Tylenol as needed for pain or fever. Luckily the patient's hemoglobin is stable compared to prior hospitalization. Will continue patient's home Protonix. The patient had previously been on mesalamine but this is not on his current med list. No evidence of acute bleeding. DVT prophylaxis with SCDs. Quality VTE Prophylaxis VTE prophylaxis: mechanical ordered (SCDs) Hospitalist [facility] Advance Care Plan I have confirmed that the patient's Advanced Care Plan is present, code status is documented, or surrogate decision maker is listed in patient medical record.: Yes Medication Reconciliation I have utilized all available resources to obtain, update and review the patients current medications (includes all prescriptions, OTC, herbals, cannabis, and nutritional supplements).: Yes
[2024-11-13] MEDS: SODIUM CHLORIDE 0.9% IV 1,000 ML 125 ML IV CONT ×3 (02:58→17:45)
[2024-11-13 05:20] VITALS: BP 115/73; PULSE 89; RESP 16; TEMP 36.6; O2SAT 99
[2024-11-13 05:49] LABS: Hematocrit 24.4 % (42.0-52.0); Hemoglobin 7.8 g/dL (14.0-18.0); Mean Corpuscular Volume 90.7 fl (80-100); Mean Platelet Volume 9.4 fl (7.4-10.4); Platelet Count Result 198 k/mm3 (150-375); Red Blood Count 2.69 M/mm3 (4.6-6.20); Red Cell Distribution Width 17.3 % (11.5-14.5); White Blood Count 4.1 K/mm3 (4.5-10.0)
[2024-11-13 06:00] LABS: Anion Gap 5 mmol/L (4-12); Blood Urea Nitrogen 29 mg/dL (9-20); Calcium 7.6 mg/dL (8.4-10.2); Carbon Dioxide 24 mmol/L (22-30); Chloride 109 mmol/L (98-107); Estimated CRCL calculation 52 ml/min; Estimated Glomerular Filt Rate 48; Glucose 100 mg/dL (65-110); Potassium 3.1 mmol/L (3.4-5.0); Sodium 138 mmol/L (137-145)
--- NOTE | 2024-11-13 08:04 | P.PNIM_ITS ---
Progress Note: A&P Assessment and Plan (1) Acute urinary retention: Code(s): R33.8 - Other retention of urine Status: Acute Assessment and Plan: Continue CBI Urine culture in August, grew E coli (pansensitive) Continue Flomax Continue ceftriaxone Urology consulted (2) SUZANNE (acute kidney injury): Code(s): N17.9 - Acute kidney failure, unspecified Status: Acute Assessment and Plan: Possibly due to dehydration Avoiding nephrotoxic drugs Trend BUN and creatinine (3) Acute UTI: Code(s): N39.0 - Urinary tract infection, site not specified Status: Acute Assessment and Plan: As mentioned above (4) Hematuria: Qualifiers: Hematuria type: gross Qualified Code(s): R31.0 - Gross hematuria Code(s): R31.9 - Hematuria, unspecified Status: Acute Assessment and Plan: Continue CBI Monitor H&H Might need cystoscopy with fulguration (5) Chronic anemia: Code(s): D64.9 - Anemia, unspecified Status: Acute Assessment and Plan: Monitor H&H (6) GERD with esophagitis: Qualifiers: Esophagitis bleeding: unspecified whether hemorrhage Qualified Code(s): K21.00 - Gastro-esophageal reflux disease with esophagitis, without bleeding Code(s): K21.00 - Gastro-esophageal reflux disease with esophagitis, without bleeding Status: Acute Assessment and Plan: Continue pantoprazole (7) Ulcerative colitis: Qualifiers: Digestive disease complication type: unspecified complication Ulcerative colitis location: unspecified ulcerative colitis location Qualified Code(s): K51.919 - Ulcerative colitis, unspecified with unspecified complications Code(s): K51.90 - Ulcerative colitis, unspecified, without complications Status: Acute Assessment and Plan: Unable to verify home medication Linzess (8) Leukopenia: Qualifiers: Leukopenia type: unspecified Qualified Code(s): D72.819 - Decreased white blood cell count, unspecified Code(s): D72.819 - Decreased white blood cell count, unspecified Status: Acute Assessment and Plan: Chronic Monitor fever ANC 2.6 Subjective Date/time seen: 11/13/24 08:04 Interval history: Patient was evaluated by Urology. Discussed with the nursing team who removed a clot. Continue CBI. Patient might need cystoscopy. Review of Systems Review of Systems: Review of systems essentially unobtainable due to patient's history of intellectual disability he is overall a poor historian. Exam Narrative: Weight 90.2 kg BMI 31.1 Const: Other: Obese, appears older than stated age, poor hygiene HENMT: Other: Mucous membranes are tacky, multiple missing teeth some a which are broken off at the gumline with multiple dental caries in his remaining teeth, crowded posterior oropharynx Eyes: Other: Positive conjunctival pallor, mild scleral icterus, pupils are equal and reactive Neck: Other: No JVD, left anterior cervical lymphadenopathy at the base of the neck that is nontender but small pea-sized Resp: Other: Decreased breath sounds at the bases, no increased work of breathing Cardio: Other: Tachycardic, regular rhythm, with 2+ bilateral radial pedal pulses, no murmur GI: Other: Soft, nontender, nondistended, normoactive bowel sounds : Other: 3 way To catheter in place with Kevin- Aid red colored urine draining in CBI Skin: Other: Thick yellow overgrown toenails, generalized pallor, normal temperature to touch, abrasion she posterior left forearm Neuro: Other: Alert oriented to person, place and reason for admission but overall poor historian, speech is clear but fluent and conversational Extrem: Other: No clubbing or cyanosis, 2+ pitting edema lower extremities Psych: Other: Pleasantly confused, cooperative, poor judgment and insight Objective Data Vital Signs Vital Signs: Vital Signs - 24 hr 11/12/24 13:57 11/12/24 14:02 11/12/24 14:16 Temperature 98.3 F Pulse Rate 102 H 100 101 H Respiratory Rate 18 19 25 H Blood Pressure 128/82 145/89 H Pulse Oximetry 100 100 Oxygen Delivery Room Air 11/12/24 14:31 11/12/24 14:47 11/12/24 15:04 Temperature Pulse Rate 101 H 102 H 99 Respiratory Rate 31 H 32 H 24 H Blood Pressure 119/69 158/97 H 124/74 Pulse Oximetry 100 Oxygen Delivery 11/12/24 15:45 11/12/24 16:01 11/12/24 16:02 Temperature Pulse Rate 102 H 104 H 104 H Respiratory Rate 19 20 20 Blood Pressure 127/77 Pulse Oximetry 100 100 100 Oxygen Delivery 11/12/24 17:04 11/12/24 17:59 11/12/24 18:02 Temperature Pulse Rate 108 H Respiratory Rate 21 H Blood Pressure 132/81 Pulse Oximetry 97 100 100 Oxygen Delivery 11/12/24 18:17 11/12/24 18:54 11/12/24 20:15 Temperature Pulse Rate 105 H Respiratory Rate 15 Blood Pressure 128/88 Pulse Oximetry 100 100 100 Oxygen Delivery 11/12/24 20:30 11/13/24 05:20 Temperature 98.2 F 98 F Pulse Rate 97 89 Respiratory Rate 16 16 Blood Pressure 121/79 115/73 Pulse Oximetry 100 99 Oxygen Delivery Intake/Output Intake/Output: Intake & Output 11/10/24 11/11/24 11/12/24 11/13/24 23:59 23:59 23:59 23:59 Intake Total 50 1550 Output Total 52181 Balance -45577 1550 Meds/Results Medications: Active Medications Generic Name Dose Route Start Last Admin Trade Name Freq PRN Reason Stop Dose Admin Acetaminophen 650 mg 11/12/24 18:06 Acetaminophen 325 Mg Tablet PO Q4H PRN Mild Pain (1-3) or Fever Hydrocodone Bitart/Acetaminophen 1 tab 11/12/24 18:06 Hydrocodone/Acetaminophen (*Crx) 5-325 Mg Tablet PO Q4H PRN Pain Rated 4-6 Ceftriaxone Sodium 1 gm in 50 mls @ 100 mls/hr 11/13/24 17:00 Rocephin 1 Gm/Ns 50 Ml IVPB Q24H KRISTINE Sodium Chloride 1,000 mls @ 125 mls/hr 11/12/24 18:10 11/13/24 02:58 Normal Saline Iv IV CONT 125 mls/hr .Q8H KRISTINE Administration Ondansetron HCl 4 mg 11/12/24 18:06 Ondansetron Inj 4 Mg/2 Ml Vial IV PUSH Q4H PRN Nausea Pantoprazole Sodium 40 mg 11/13/24 09:00 Pantoprazole 40 Mg Tablet PO Q12HR KRISTINE Sodium Chloride 1 gm 11/13/24 09:00 Sodium Chloride 1 Gm Tablet PO BID KRISTINE Tamsulosin HCl 0.4 mg 11/13/24 09:00 Tamsulosin Hcl 0.4 Mg Capsule PO QAM [facility] Labs Labs: Laboratory Results - last 24 hr 11/12/24 11/12/24 11/13/24 15:08 15:17 05:40 WBC 3.4 L 4.1 L RBC 3.35 L 2.69 L Hgb 9.6 L 7.8 L Hct 30.0 L 24.4 L MCV 89.6 90.7 MCH 28.7 29.0 MCHC 32.0 32.0 RDW 17.7 H 17.3 H Plt Count 212 198 MPV 9.2 9.4 Immature Gran % (Auto) Not Reportable Neut % (Auto) Not Reportable Lymph % (Auto) Not Reportable Wol[place] % (Auto) Not Reportable Eos % (Auto) Not Reportable Baso % (Auto) Not Reportable Lymph # (Auto) Not Reportable [place] # (Auto) Not Reportable Eos # (Auto) Not Reportable Baso # (Auto) Not Reportable Abs Immat Gran (auto) Not Reportable Absolute Neuts (auto) Not Reportable Absolute Nucleated RBC Not Reportable Total Counted 100 Neutrophils % (Manual) 74 H Band Neutrophils % 4 Lymphocytes % (Manual) 17 L Monocytes % (Manual) 5 Eosinophils % (Manual) 0 Basophils % (Manual) 0 Nucleated RBC % Not Reportable Abs Neuts (Manual) 2.65 Abs Lymphs (Manual) 0.57 L Abs Monocytes (Manual) 0.17 Absolute Eos (Manual) 0.00 L Abs Basophils (Manual) 0.00 Platelet Estimate Adequate Anisocytosis 1+ Schistocytes None seen Sodium 136 L 138 Potassium 3.7 3.1 L Chloride 104 109 H Carbon Dioxide 22 24 Anion Gap 10 5 BUN 36 H D 29 H Creatinine 2.48 H 1.50 H Estim Creat Clear Calc 33 52 Estimated GFR 27 L 48 L Glucose 173 H 100 Calcium 7.9 L 7.6 L Total Bilirubin 1.3 AST 24 ALT 16 Alkaline Phosphatase 78 Total Protein 7.0 Albumin 3.0 L Urine Color [place] H Urine Appearance Cloudy H Urine pH 8.5 Ur Specific [place] 1.012 Urine Protein 3+ H Urine Glucose (UA) Negative Urine Ketones Negative Ur Blood (Man) 3+ H Urine Nitrate Negative Urine Bilirubin Negative Urine Urobilinogen 0.2 Add Ur Microanalysis Reviewed Leukocyte Esterase Rfl 3+ H Urine RBC 51-100 H Urine WBC >100 H Ur Squamous Epith Cells None seen Urine Bacteria 4+ H Urine Casts 3-5 Quality VTE Prophylaxis VTE prophylaxis: mechanical ordered (SCDs) Hospitalist MIPS Advance Care Plan I have confirmed that the patient's Advanced Care Plan is present, code status is documented, or surrogate decision maker is listed in patient medical record.: Yes Medication Reconciliation I have utilized all available resources to obtain, update and review the patients current medications (includes all prescriptions, OTC, herbals, cannabis, and nutritional supplements).: Yes
[2024-11-13 08:15] VITALS: O2SAT 99
[2024-11-13] MEDS: TAMSULOSIN HCL 0.4 MG CAPSULE PO (09:16)
[2024-11-13] MEDS: PANTOPRAZOLE 40 MG TABLET PO ×2 (09:16→20:10)
[2024-11-13] MEDS: SODIUM CHLORIDE 1 GM TABLET PO ×2 (09:16→16:17)
--- NOTE | 2024-11-13 10:30 | P.CONUR_ITS ---
Assessment and Plan Assessment and plan (1) Hematuria: Qualifiers: Hematuria type: gross Qualified Code(s): R31.0 - Gross hematuria Code(s): R31.9 - Hematuria, unspecified Status: Acute Assessment and Plan: continue CBI Monitor hemoglobin If hematuria continues, he may need cystoscopy with fulguration. No plans for OR today (2) Acute urinary retention: Code(s): R33.8 - Other retention of urine Status: Acute Assessment and Plan: will keep To catheter in place I do not see that he has seen [facility] [place] in the past. Will try to find out if he has a regular urologist. Plan Keep To catheter in place for now. Urology Consult Note HPI Date Seen: 11/13/24 Requesting Physician: Geovani Alegre MD Primary Care Provider: UNKNOWN,DOCTOR Consult Narrative Reason for consult: hematuria Narrative: Pal Carolina is a 59 year old male with a history of urine retention. He presented to the ER with 1500cc in the bladder. Hematuria started after decompression of the bladder per the call from the ER last night. CBI was started. It has been running overnight. Currently on a slower drip with clear urine. The urine has not clotted overnight per the nursing staff. The patient is tolerating the catheter Review of Systems 2 Review of Systems: All systems reviewed & are unremarkable except as noted in HPI and below PMFSH Past Medical History Medical History (Updated 11/13/24 @ 05:19 by Joselin Bernardo DO) Mass of left ear canal Needs outpatient follow-up that was recommended during admission in August of 2024 Non-STEMI (non-ST elevated myocardial infarction) Due to demand ischemia from sepsis and severe anemia. 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 He is single and does not have children. He stated that his aunt and uncle had lives with him prior but his uncle in his aunt had orthopedic surgery and had to move. Patient states he has had ambulate with a walker for the last year (presume since 2023). Code status: DNR/DNI (per prison paperwork) Surrogate decision maker: Giannabria Peters (aunt) Smoking status: Never smoker Alcohol intake: former Drinks per week: 3 Substance use: former Substance use type: marijuana Do You Feel Safe in your Home?: Yes Lack of Transportation: No Lack of Food: Never True Current Housing: Decline to Answer Concerned About Future Housing: Decline to Answer Difficulty Paying Gas/Electric Bills: No Difficulty Paying for Meds: YES Currently Unemployed: No Education: High School Diploma/GED Difficulty w/ Childcare or Family Care: No Spiritual care concerns: No Meds Home Medications and Allergies Home Medications ?Medication ?Instructions ?Recorded ?Confirmed ?Type acetaminophen 650 mg 650 mg PO Q4H PRN pain 09/18/24 11/12/24 History tablet,extended release pantoprazole 40 mg tablet,delayed 40 mg PO BID 09/18/24 11/12/24 History release (Protonix) levofloxacin 500 mg tablet 500 mg PO DAILY 11/12/24 11/12/24 History Allergies Allergy/AdvReac Type Severity Reaction Status Date / Time zinc Allergy Unknown UNKNOWN Verified 11/12/24 21:07 Vital Signs Vital Signs - 24 hr 11/12/24 13:57 11/12/24 14:02 11/12/24 14:16 Temperature 36.8 C Pulse Rate 102 H 100 101 H Respiratory Rate 18 19 25 H Blood Pressure 128/82 145/89 H Pulse Oximetry 100 100 Oxygen Delivery Room Air 11/12/24 14:31 11/12/24 14:47 11/12/24 15:04 Temperature Pulse Rate 101 H 102 H 99 Respiratory Rate 31 H 32 H 24 H Blood Pressure 119/69 158/97 H 124/74 Pulse Oximetry 100 Oxygen Delivery 11/12/24 15:45 11/12/24 16:01 11/12/24 16:02 Temperature Pulse Rate 102 H 104 H 104 H Respiratory Rate 19 20 20 Blood Pressure 127/77 Pulse Oximetry 100 100 100 Oxygen Delivery 11/12/24 17:04 11/12/24 17:59 11/12/24 18:02 Temperature Pulse Rate 108 H Respiratory Rate 21 H Blood Pressure 132/81 Pulse Oximetry 97 100 100 Oxygen Delivery 11/12/24 18:17 11/12/24 18:54 11/12/24 20:15 Temperature Pulse Rate 105 H Respiratory Rate 15 Blood Pressure 128/88 Pulse Oximetry 100 100 100 Oxygen Delivery 11/12/24 20:30 11/13/24 05:20 11/13/24 08:00 Temperature 36.8 C 36.6 C Pulse Rate 97 89 Respiratory Rate 16 16 Blood Pressure 121/79 115/73 Pulse Oximetry 100 99 Oxygen Delivery Room Air 11/13/24 08:15 Temperature Pulse Rate Respiratory Rate Blood Pressure Pulse Oximetry 99 Oxygen Delivery Room Air Exam 2 Const: General: cooperative and healthy appearing HENMT: Head: normal to inspection Resp: Effort & Inspection: normal respiratory effort Urinary Catheter: Urinary Catheter: patent and draining Results Labs 11/13/24 05:40 11/13/24 05:40 Labs: Short CBC 11/12/24 11/13/24 Range/Units 15:08 05:40 WBC 3.4 L 4.1 L (4.5-10.0) K/mm3 Hgb 9.6 L 7.8 L (14.0-18.0) g/dL Hct 30.0 L 24.4 L (42.0-52.0) % Plt Count 212 198 (150-375) k/mm3 BMP 11/12/24 11/13/24 15:08 05:40 Sodium 136 L 138 Potassium 3.7 3.1 L Chloride 104 109 H Carbon Dioxide 22 24 BUN 36 H D 29 H Creatinine 2.48 H 1.50 H Glucose 173 H 100 Calcium 7.9 L 7.6 L Liver Function 11/12/24 Range/Units 15:08 Total Bilirubin 1.3 (0.2-1.3) mg/dL AST 24 (17-59) U/L ALT 16 (6-50) U/L Alkaline Phosphatase 78 (38-126) U/L Albumin 3.0 L (3.5-5.1) g/dL Urine 11/12/24 Range/Units 15:17 Urine Color [place] H (Yellow) Urine Appearance Cloudy H (Clear) Urine pH 8.5 (5.0-9.0) Ur Specific [place] 1.012 (1.001-1.035) Urine Protein 3+ H (Negative) mg/dL Urine Glucose (UA) Negative (Negative) mg/dL
[2024-11-13 13:58] VITALS: BP 104/61; PULSE 96; RESP 20; TEMP 36.5; O2SAT 100
[2024-11-13 19:50] VITALS: BP 118/68; PULSE 92; RESP 18; TEMP 37.1; O2SAT 100
[2024-11-13 20:40] VITALS: PULSE 86; O2SAT 99
[2024-11-14] VITALS (9 sets, daily range): BP systolic 104–134; BP diastolic 65–80; PULSE 88–98; RESP 16–18; TEMP 36.6–37.1; O2SAT 97–100
[2024-11-14] MEDS: SODIUM CHLORIDE 0.9% IV 1,000 ML 125 ML IV CONT ×2 (04:54→23:35)
[2024-11-14 05:48] LABS: Hematocrit 22.3 % (42.0-52.0); Mean Corpuscular HGB Conc 31.4 g/dl (32-36); Mean Corpuscular Hemoglobin 28.9 pg (26-34); Mean Corpuscular Volume 92.1 fl (80-100); Mean Platelet Volume 8.8 fl (7.4-10.4); Platelet Count Result 177 k/mm3 (150-375); Red Blood Count 2.42 M/mm3 (4.6-6.20); White Blood Count 3.9 K/mm3 (4.5-10.0)
[2024-11-14 06:09] LABS: Alanine Aminotransferase 19 U/L (6-50); Albumin Level 2.3 g/dL (3.5-5.1); Alkaline Phosphatase 70 U/L (38-126); Anion Gap 6 mmol/L (4-12); Aspartate Amino Transferase 43 U/L (17-59); Bilirubin,Total 0.4 mg/dL (0.2-1.3); Blood Urea Nitrogen 17 mg/dL (9-20); Calcium 6.8 mg/dL (8.4-10.2); Carbon Dioxide 21 mmol/L (22-30); Chloride 109 mmol/L (98-107); Estimated CRCL calculation 80 ml/min; Estimated Glomerular Filt Rate > 60; Glucose 103 mg/dL (65-110); Potassium 2.7 mmol/L (3.4-5.0); Sodium 136 mmol/L (137-145)
[2024-11-14 06:47] LABS: Magnesium 1.5 mg/dL (1.6-2.3)
[2024-11-14] MEDS: POTASSIUM CHLORIDE 20 MEQ PACKET (FOR LIQUID) 40 MEQ PO (06:52)
[2024-11-14] MEDS: POTASSIUM CHLORIDE INJ 40 MEQ in SODIUM CHLORIDE 0.9% IV 500 ML 130 MEQ IVPB (06:52)
[2024-11-14] MEDS: MAGNESIUM SULF 2 GM/WATER 50ML 2 GM/50 ML BAG IVPB (09:02)
[2024-11-14] MEDS: SODIUM CHLORIDE 0.9% IV 100 ML 25 ML (09:03)
[2024-11-14] MEDS: PANTOPRAZOLE SODIUM IV 40 MG VIAL IV PUSH ×2 (11:09→20:10)
[2024-11-14] MEDS: SODIUM CHLORIDE 1 GM TABLET PO ×2 (11:10→18:09)
[2024-11-14] MEDS: SODIUM CHLORIDE 0.9% IV 250 ML 30 ML IV CONT (11:43)
[2024-11-14] MEDS: TUBING, BLOOD PLUM PUMP TUBING 1 EACH XX (11:43)
--- NOTE | 2024-11-14 12:03 | WPDUROPN2 ---
Progress Note: A&P Assessment and Plan (1) Acute UTI: Code(s): N39.0 - Urinary tract infection, site not specified Status: Acute Assessment and Plan: continue antibiotics (2) Hematuria: Qualifiers: Hematuria type: gross Qualified Code(s): R31.0 - Gross hematuria Code(s): R31.9 - Hematuria, unspecified Status: Acute Assessment and Plan: slowly improving NPO after midnight If not improved tomorrow, will perform cystoscopy with clot evacuation and fulguration of bleeding. Subjective Subjective Date/Time Seen: 11/14/24 12:03 Interval history: HE states the urine has been better and worse overnight. Currently on a slow CBI drip. He is eating lunch currently. His hemoglobin decreased sightly from 7.8 to 7. Exam Urinary Catheter: Urinary Catheter: patent and draining and urine red Objective Data Vital Signs Vital Signs: Vital Signs - 24 hr 11/13/24 13:58 11/13/24 19:50 11/13/24 20:00 Temperature 36.5 C 37.1 C Pulse Rate 96 92 Respiratory Rate 20 18 Blood Pressure 104/61 118/68 Pulse Oximetry 100 100 Oxygen Delivery Room Air Fraction of Inspired Oxygen 11/13/24 20:40 11/14/24 04:45 11/14/24 08:12 Temperature 37.1 C Pulse Rate 86 88 Respiratory Rate 18 Blood Pressure 116/72 Pulse Oximetry 99 98 97 Oxygen Delivery Room Air Room Air Fraction of Inspired Oxygen 21 21 Intake/Output Intake/Output: Intake & Output 11/11/24 11/12/24 11/13/24 11/14/24 23:59 23:59 23:59 23:59 Intake Total 50 5152 2339.1 Output Total 81641 950 2250 Balance -68657 4202 89.1 Meds/Results Medications: Active Medications Generic Name Dose Route Start Last Admin Trade Name Freq PRN Reason Stop Dose Admin Acetaminophen 650 mg 11/12/24 18:06 Acetaminophen 325 Mg Tablet PO Q4H PRN Mild Pain (1-3) or Fever Hydrocodone Bitart/Acetaminophen 1 tab 11/12/24 18:06 Hydrocodone/Acetaminophen (*Crx) 5-325 Mg Tablet PO Q4H PRN Pain Rated 4-6 Ceftriaxone Sodium 1 gm in 50 mls @ 100 mls/hr 11/13/24 17:00 11/13/24 16:16 Rocephin 1 Gm/Ns 50 Ml IVPB 100 mls/hr Q24H KRISTINE Administration Sodium Chloride 1,000 mls @ 125 mls/hr 11/12/24 18:10 11/14/24 11:43 Normal Saline Iv IV CONT 0 mls/hr .Q8H KRISTINE Infusion Sodium Chloride 250 mls @ 30 mls/hr 11/14/24 08:15 11/14/24 11:43 Normal Saline Iv IV CONT 11/14/24 16:34 30 mls/hr .Q8H20M STA Administration Ondansetron HCl 4 mg 11/12/24 18:06 Ondansetron Inj 4 Mg/2 Ml Vial IV PUSH Q4H PRN Nausea Pantoprazole Sodium 40 mg 11/14/24 09:25 11/14/24 11:09 Pantoprazole Sodium Iv 40 Mg Vial IV PUSH 40 mg Q12HR KRISTINE Administration Sodium Chloride 1 gm 11/13/24 09:00 11/14/24 11:10 Sodium Chloride 1 Gm Tablet PO 1 gm BID KRISTINE Administration Tamsulosin HCl 0.4 mg 11/13/24 09:00 11/14/24 09:14 Tamsulosin Hcl 0.4 Mg Capsule PO Not Given QAM COUNTS INCLUDE 234 BEDS AT [facility] Labs Labs: Laboratory Results - last 24 hr 11/14/24 11/14/24 11/14/24 05:40 05:42 06:38 WBC 3.9 L RBC 2.42 L Hgb 7.0 L Hct 22.3 L MCV 92.1 MCH 28.9 MCHC 31.4 L RDW 17.0 H Plt Count 177 MPV 8.8 Sodium 136 L Potassium 2.7 L* Chloride 109 H Carbon Dioxide 21 L Anion Gap 6 BUN 17 D Creatinine 0.96 Estim Creat Clear Calc 80 Estimated GFR > 60 Glucose 103 Calcium 6.8 L Magnesium 1.5 L Total Bilirubin 0.4 AST 43 ALT 19 Alkaline Phosphatase 70 Total Protein 5.0 L Albumin 2.3 L Blood Type O Negative Antibody Screen Negative Crossmatch See Detail
[2024-11-14 14:04] LABS: Magnesium 1.8 mg/dL (1.6-2.3); Potassium 3.7 mmol/L (3.4-5.0)
--- NOTE | 2024-11-14 15:14 | PM.IMPN ---
Progress Note: A&P Assessment and Plan (1) Acute urinary retention: Code(s): R33.8 - Other retention of urine Status: Acute Assessment and Plan: Continue CBI Urine culture in August, grew E coli (pansensitive) Continue Flomax Continue ceftriaxone Urology consulted (2) SUZANNE (acute kidney injury): Code(s): N17.9 - Acute kidney failure, unspecified Status: Acute Assessment and Plan: Possibly due to dehydration Avoiding nephrotoxic drugs Trend BUN and creatinine (3) Acute UTI: Code(s): N39.0 - Urinary tract infection, site not specified Status: Acute Assessment and Plan: As mentioned above (4) Hematuria: Qualifiers: Hematuria type: gross Qualified Code(s): R31.0 - Gross hematuria Code(s): R31.9 - Hematuria, unspecified Status: Acute Assessment and Plan: Continue CBI Monitor H&H Might need cystoscopy with fulguration (5) Chronic anemia: Code(s): D64.9 - Anemia, unspecified Status: Acute Assessment and Plan: Monitor H&H Currently receiving 1 unit PRBC Possibly due to hematuria (6) GERD with esophagitis: Qualifiers: Esophagitis bleeding: unspecified whether hemorrhage Qualified Code(s): K21.00 - Gastro-esophageal reflux disease with esophagitis, without bleeding Code(s): K21.00 - Gastro-esophageal reflux disease with esophagitis, without bleeding Status: Acute Assessment and Plan: Continue pantoprazole (7) Ulcerative colitis: Qualifiers: Ulcerative colitis location: unspecified ulcerative colitis location Digestive disease complication type: unspecified complication Qualified Code(s): K51.919 - Ulcerative colitis, unspecified with unspecified complications Code(s): K51.90 - Ulcerative colitis, unspecified, without complications Status: Acute Assessment and Plan: Unable to verify home medication Linzess (8) Leukopenia: Qualifiers: Leukopenia type: unspecified Qualified Code(s): D72.819 - Decreased white blood cell count, unspecified Code(s): D72.819 - Decreased white blood cell count, unspecified Status: Acute Assessment and Plan: Chronic Monitor fever ANC 2.6 Subjective Date/time seen: 11/14/24 15:14 Interval history: Currently receiving blood transfusion and magnesium. Patient was doing well Review of Systems Review of Systems: Review of systems essentially unobtainable due to patient's history of intellectual disability he is overall a poor historian. Exam Narrative: Weight 90.2 kg BMI 31.1 Const: Other: Obese, appears older than stated age, poor hygiene HENMT: Other: Mucous membranes are tacky, multiple missing teeth some a which are broken off at the gumline with multiple dental caries in his remaining teeth, crowded posterior oropharynx Eyes: Other: Positive conjunctival pallor, mild scleral icterus, pupils are equal and reactive Neck: Other: No JVD, left anterior cervical lymphadenopathy at the base of the neck that is nontender but small pea-sized Resp: Other: Decreased breath sounds at the bases, no increased work of breathing Cardio: Other: Tachycardic, regular rhythm, with 2+ bilateral radial pedal pulses, no murmur GI: Other: Soft, nontender, nondistended, normoactive bowel sounds : Other: 3 way To catheter in place with Kevin-Aid red colored urine draining in CBI Skin: Other: Thick yellow overgrown toenails, generalized pallor, normal temperature to touch, abrasion she posterior left forearm Neuro: Other: Alert oriented to person, place and reason for admission but overall poor historian, speech is clear but fluent and conversational Extrem: Other: No clubbing or cyanosis, 2+ pitting edema lower extremities Psych: Other: Pleasantly confused, cooperative, poor judgment and insight Objective Data Vital Signs Vital Signs: Vital Signs - 24 hr 11/13/24 19:50 11/13/24 20:00 11/13/24 20:40 Temperature 98.8 F Pulse Rate 92 86 Respiratory Rate 18 Blood Pressure 118/68 Pulse Oximetry 100 99 Oxygen Delivery Room Air Room Air Fraction of Inspired Oxygen 11/14/24 04:45 11/14/24 08:12 11/14/24 13:04 Temperature 98.8 F 97.9 F Pulse Rate 88 98 Respiratory Rate 18 18 Blood Pressure 116/72 114/67 Pulse Oximetry 98 97 100 Oxygen Delivery Room Air Fraction of Inspired Oxygen 21 11/14/24 13:19 11/14/24 14:00 Temperature 98.3 F 98.5 F Pulse Rate 95 94 Respiratory Rate 16 18 Blood Pressure 104/75 117/65 Pulse Oximetry 100 100 Oxygen Delivery Fraction of Inspired Oxygen Intake/Output Intake/Output: Intake & Output 11/11/24 11/12/24 11/13/24 11/14/24 23:59 23:59 23:59 23:59 Intake Total 50 5152 2561.1 Output Total 72631 048 2250 Balance -42858 4202 311.1 Meds/Results Medications: Active Medications Generic Name Dose Route Start Last Admin Trade Name Freq PRN Reason Stop Dose Admin Acetaminophen 650 mg 11/12/24 18:06 Acetaminophen 325 Mg Tablet PO Q4H PRN Mild Pain (1-3) or Fever Hydrocodone Bitart/Acetaminophen 1 tab 11/12/24 18:06 Hydrocodone/Acetaminophen (*Crx) 5-325 Mg Tablet PO Q4H PRN Pain Rated 4-6 Ceftriaxone Sodium 1 gm in 50 mls @ 100 mls/hr 11/13/24 17:00 11/13/24 16:16 Rocephin 1 Gm/Ns 50 Ml IVPB 100 mls/hr Q24H KRISTINE Administration Sodium Chloride 1,000 mls @ 125 mls/hr 11/12/24 18:10 11/14/24 11:43 Normal Saline Iv IV CONT 0 mls/hr .Q8H KRISTINE Infusion Sodium Chloride 250 mls @ 30 mls/hr 11/14/24 08:15 11/14/24 11:43 Normal Saline Iv IV CONT 11/14/24 16:34 30 mls/hr .Q8H20M STA Administration Ondansetron HCl 4 mg 11/12/24 18:06 Ondansetron Inj 4 Mg/2 Ml Vial IV PUSH Q4H PRN Nausea Pantoprazole Sodium 40 mg 11/14/24 09:25 11/14/24 11:09 Pantoprazole Sodium Iv 40 Mg Vial IV PUSH 40 mg Q12HR KRISTINE Administration Sodium Chloride 1 gm 11/13/24 09:00 11/14/24 11:10 Sodium Chloride 1 Gm Tablet PO 1 gm BID KRISTINE Administration Tamsulosin HCl 0.4 mg 11/13/24 09:00 11/14/24 09:14 Tamsulosin Hcl 0.4 Mg Capsule PO Not Given QAM [facility] Labs Labs: Laboratory Results - last 24 hr 11/14/24 11/14/24 11/14/24 05:40 05:42 06:38 WBC 3.9 L RBC 2.42 L Hgb 7.0 L Hct 22.3 L MCV 92.1 MCH 28.9 MCHC 31.4 L RDW 17.0 H Plt Count 177 MPV 8.8 Sodium 136 L Potassium 2.7 L* Chloride 109 H Carbon Dioxide 21 L Anion Gap 6 BUN 17 D Creatinine 0.96 Estim Creat Clear Calc 80 Estimated GFR > 60 Glucose 103 Calcium 6.8 L Magnesium 1.5 L Total Bilirubin 0.4 AST 43 ALT 19 Alkaline Phosphatase 70 Total Protein 5.0 L Albumin 2.3 L Blood Type O Negative Antibody Screen Negative Crossmatch See Detail 11/14/24 13:51 WBC RBC Hgb Hct MCV MCH MCHC RDW Plt Count MPV Sodium Potassium 3.7 Chloride Carbon Dioxide Anion Gap BUN Creatinine Estim Creat Clear Calc Estimated GFR Glucose Calcium Magnesium 1.8 Total Bilirubin AST ALT Alkaline Phosphatase Total Protein Albumin Blood Type Antibody Screen Crossmatch Quality VTE Prophylaxis VTE prophylaxis: mechanical ordered (SCDs) Hospitalist MIPS Advance Care Plan I have confirmed that the patient's Advanced Care Plan is present, code status is documented, or surrogate decision maker is listed in patient medical record.: Yes Medication Reconciliation I have utilized all available resources to obtain, update and review the patients current medications (includes all prescriptions, OTC, herbals, cannabis, and nutritional supplements).: Yes
[2024-11-14 17:14] LABS: Hematocrit 27.1 % (42.0-52.0); Hemoglobin 8.7 g/dL (14.0-18.0)
[2024-11-15 04:30] VITALS: BP 125/71; PULSE 89; RESP 20; TEMP 36.2; O2SAT 99
[2024-11-15 06:06] LABS: Hematocrit 25.5 % (42.0-52.0); Hemoglobin 8.1 g/dL (14.0-18.0); Mean Corpuscular HGB Conc 31.8 g/dl (32-36); Mean Corpuscular Hemoglobin 28.7 pg (26-34); Mean Corpuscular Volume 90.4 fl (80-100); Mean Platelet Volume 8.9 fl (7.4-10.4); Platelet Count Result 203 k/mm3 (150-375); Red Blood Count 2.82 M/mm3 (4.6-6.20); Red Cell Distribution Width 16.2 % (11.5-14.5); White Blood Count 4.5 K/mm3 (4.5-10.0)
[2024-11-15 06:17] LABS: Alanine Aminotransferase 25 U/L (6-50); Albumin Level 2.3 g/dL (3.5-5.1); Alkaline Phosphatase 70 U/L (38-126); Anion Gap 6 mmol/L (4-12); Aspartate Amino Transferase 51 U/L (17-59); Bilirubin,Total 0.3 mg/dL (0.2-1.3); Blood Urea Nitrogen 9 mg/dL (9-20); Calcium 6.6 mg/dL (8.4-10.2); Carbon Dioxide 22 mmol/L (22-30); Chloride 109 mmol/L (98-107); Estimated CRCL calculation 93 ml/min; Estimated Glomerular Filt Rate > 60; Glucose 112 mg/dL (65-110); Sodium 137 mmol/L (137-145)
[2024-11-15] MEDS: SODIUM CHLORIDE 0.9% IV 1,000 ML 125 ML IV CONT ×2 (07:33→21:13)
[2024-11-15] MEDS: TAMSULOSIN HCL 0.4 MG CAPSULE PO (08:26)
[2024-11-15] MEDS: SODIUM CHLORIDE 1 GM TABLET PO ×2 (08:26→16:24)
[2024-11-15] MEDS: PANTOPRAZOLE SODIUM IV 40 MG VIAL IV PUSH ×2 (08:26→21:03)
--- NOTE | 2024-11-15 08:48 | P.PNIM_ITS ---
Progress Note: A&P Assessment and Plan (1) Acute urinary retention: Code(s): R33.8 - Other retention of urine Status: Acute Assessment and Plan: Continue CBI Urine culture in August, grew E coli (pansensitive) Continue Flomax Continue ceftriaxone Urology consulted (2) SUZANNE (acute kidney injury): Code(s): N17.9 - Acute kidney failure, unspecified Status: Acute Assessment and Plan: Possibly due to dehydration Avoiding nephrotoxic drugs Trend BUN and creatinine (3) Acute UTI: Code(s): N39.0 - Urinary tract infection, site not specified Status: Acute Assessment and Plan: Urine culture shows Proteus mirabilis Sensitive to ceftriaxone (4) Hematuria: Qualifiers: Hematuria type: gross Qualified Code(s): R31.0 - Gross hematuria Code(s): R31.9 - Hematuria, unspecified Status: Acute Assessment and Plan: Continue CBI Monitor H&H Might need cystoscopy with fulguration (5) Chronic anemia: Code(s): D64.9 - Anemia, unspecified Status: Acute Assessment and Plan: Monitor H&H Currently receiving 1 unit PRBC Possibly due to hematuria (6) GERD with esophagitis: Qualifiers: Esophagitis bleeding: unspecified whether hemorrhage Qualified Code(s): K21.00 - Gastro-esophageal reflux disease with esophagitis, without bleeding Code(s): K21.00 - Gastro-esophageal reflux disease with esophagitis, without bleeding Status: Acute Assessment and Plan: Continue pantoprazole (7) Ulcerative colitis: Qualifiers: Digestive disease complication type: unspecified complication Ulcerative colitis location: unspecified ulcerative colitis location Qualified Code(s): K51.919 - Ulcerative colitis, unspecified with unspecified complications Code(s): K51.90 - Ulcerative colitis, unspecified, without complications Status: Acute Assessment and Plan: Unable to verify home medication Linzess (8) Leukopenia: Qualifiers: Leukopenia type: unspecified Qualified Code(s): D72.819 - Decreased white blood cell count, unspecified Code(s): D72.819 - Decreased white blood cell count, unspecified Status: Acute Assessment and Plan: Chronic Monitor fever ANC 2.6 Subjective Date/time seen: 11/15/24 08:48 Interval history: Patient received 1 unit PRBC yesterday. Although nursing reported no evidence of hematuria during my evaluation there was evidence of hematuria.UC shows Proteus Mirabilis and started Augmentin liquid due to patient's poor intake of tablets Review of Systems Review of Systems: Review of systems essentially unobtainable due to patient's history of intel lectual disability he is overall a poor historian. Exam Narrative: Weight 90.2 kg BMI 31.1 Const: Other: Obese, appears older than stated age, poor hygiene HENMT: Other: Mucous membranes are tacky, multiple missing teeth some a which are broken off at the gumline with multiple dental caries in his remaining teeth, crowded posterior oropharynx Eyes: Other: Positive conjunctival pallor, mild scleral icterus, pupils are equal and reactive Neck: Other: No JVD, left anterior cervical lymphadenopathy at the base of the neck that is nontender but small pea-sized Resp: Other: Decreased breath sounds at the bases, no increased work of breathing Cardio: Other: Tachycardic, regular rhythm, with 2+ bilateral radial pedal pulses, no murmur GI: Other: Soft, nontender, nondistended, normoactive bowel sounds : Other: 3 way To catheter in place with Kevin- Aid red colored urine draining in CBI Skin: Other: Thick yellow overgrown toenails, generalized pallor, normal temperature to touch, abrasion she posterior left forearm Neuro: Other: Alert oriented to person, place and reason for admission but overall poor historian, speech is clear but fluent and conversational Extrem: Other: No clubbing or cyanosis, 2+ pitting edema lower extremities Psych: Other: Pleasantly confused, cooperative, poor judgment and insight Objective Data Vital Signs Vital Signs: Vital Signs - 24 hr 11/14/24 13:04 11/14/24 13:19 11/14/24 14:00 Temperature 97.9 F 98.3 F 98.5 F Pulse Rate 98 95 94 Respiratory Rate 18 16 18 Blood Pressure 114/67 104/75 117/65 Pulse Oximetry 100 100 100 Oxygen Delivery 11/14/24 14:19 11/14/24 15:19 11/14/24 15:50 Temperature 98.5 F 98.1 F 97.8 F Pulse Rate 94 91 89 Respiratory Rate 18 17 17 Blood Pressure 117/65 115/70 115/68 Pulse Oximetry 100 100 99 Oxygen Delivery 11/14/24 20:00 11/14/24 20:10 11/15/24 04:30 Temperature 98.3 F 97.2 F L Pulse Rate 92 89 Respiratory Rate 16 20 Blood Pressure 134/80 125/71 Pulse Oximetry 100 99 Oxygen Delivery Room Air Intake/Output Intake/Output: Intake & Output 11/12/24 11/13/24 11/14/24 11/15/24 23:59 23:59 23:59 23:59 Intake Total 50 5202 3729.0 1295.8 Output Total 33312 950 5050 700 Balance -94633 4252 -1321.0 595.8 Meds/Results Medications: Active Medications Generic Name Dose Route Start Last Admin Trade Name Freq PRN Reason Stop Dose Admin Acetaminophen 650 mg 11/12/24 18:06 Acetaminophen 325 Mg Tablet PO Q4H PRN Mild Pain (1-3) or Fever Hydrocodone Bitart/Acetaminophen 1 tab 11/12/24 18:06 Hydrocodone/Acetaminophen (*Crx) 5-325 Mg Tablet PO Q4H PRN Pain Rated 4-6 Ceftriaxone Sodium 1 gm in 50 mls @ 100 mls/hr 11/13/24 17:00 11/14/24 18:35 Rocephin 1 Gm/Ns 50 Ml IVPB Infused Q24H KRISTINE Infusion Sodium Chloride 1,000 mls @ 125 mls/hr 11/12/24 18:10 11/15/24 07:41 Normal Saline Iv IV CONT Not Given .Q8H KRISTINE Potassium Chloride 40 meq/ 520 mls @ 130 mls/hr 11/15/24 08:47 Sodium Chloride IVPB 11/15/24 12:46 ONCE ONE Ondansetron HCl 4 mg 11/12/24 18:06 Ondansetron Inj 4 Mg/2 Ml Vial IV PUSH Q4H PRN Nausea Pantoprazole Sodium 40 mg 11/14/24 09:25 11/15/24 08:26 Pantoprazole Sodium Iv 40 Mg Vial IV PUSH 40 mg Q12HR KRISTINE Administration Sodium Chloride 1 gm 11/13/24 09:00 11/15/24 08:26 Sodium Chloride 1 Gm Tablet PO 1 gm BID KRISTINE Administration Tamsulosin HCl 0.4 mg 11/13/24 09:00 11/15/24 08:26 Tamsulosin Hcl 0.4 Mg Capsule PO 0.4 mg QAM KRISTINE Administration Labs Labs: Laboratory Results - last 24 hr 11/14/24 11/14/24 11/14/24 06:38 13:51 16:57 WBC RBC Hgb 8.7 L Hct 27.1 L MCV MCH MCHC RDW Plt Count MPV Sodium Potassium 3.7 Chloride Carbon Dioxide Anion Gap BUN Creatinine Estim Creat Clear Calc Estimated GFR Glucose Calcium Magnesium 1.8 Total Bilirubin AST ALT Alkaline Phosphatase Total Protein Albumin Blood Type O Negative Antibody Screen Negative Crossmatch See Detail 11/15/24 05:58 WBC 4.5 RBC 2.82 L Hgb 8.1 L Hct 25.5 L MCV 90.4 MCH 28.7 MCHC 31.8 L RDW 16.2 H Plt Count 203 MPV 8.9 Sodium 137 Potassium 3.0 L Chloride 109 H Carbon Dioxide 22 Anion Gap 6 BUN 9 D Creatinine 0.82 Estim Creat Clear Calc 93 Estimated GFR > 60 Glucose 112 H Calcium 6.6 L Magnesium Total Bilirubin 0.3 AST 51 ALT 25 Alkaline Phosphatase 70 Total Protein 5.0 L Albumin 2.3 L Blood Type Antibody Screen Crossmatch Quality VTE Prophylaxis VTE prophylaxis: mechanical ordered (SCDs) Hospitalist MIPS Advance Care Plan I have confirmed that the patient's Advanced Care Plan is present, code status is documented, or surrogate decision maker is listed in patient medical record.: Yes Medication Reconciliation I have utilized all available resources to obtain, update and review the patients current medications (includes all prescriptions, OTC, herbals, cannabis, and nutritional supplements).: Yes
--- NOTE | 2024-11-15 09:10 | WPDUROPN2 ---
Progress Note: A&P Assessment and Plan (1) Acute UTI: Code(s): N39.0 - Urinary tract infection, site not specified Status: Acute Assessment and Plan: Proteus was present. It is sensitive to Augmentin. Can be treated with oral medication as outpatient. (2) Hematuria: Qualifiers: Hematuria type: gross Qualified Code(s): R31.0 - Gross hematuria Code(s): R31.9 - Hematuria, unspecified Status: Acute Assessment and Plan: I stopped the CBI earlier this AM. After about 45 minutes of observation, there was no hematuria seen. The urine has remained clear. No need for cystoscopy today. Continue observation today off CBI to ensure stability of the hgb and no further hematuria. He will need cystoscopy as an outpatient to complete his work up. (3) Acute urinary retention: Code(s): R33.8 - Other retention of urine Status: Acute Assessment and Plan: He will need to be discharged with a To catheter. He can have a voiding trial as an outpatient while on antibiotics for the UTI. Subjective Subjective Date/Time Seen: 11/15/24 09:10 Interval history: He reports no issues with the catheter overnight. He had one unite of RBC yesterday. Hgb went from 7 to 8.7 and was 8.1 this AM. Exam : Penis: Yes normal penis Urinary Catheter: Urinary Catheter: patent and draining and urine clear Objective Data Vital Signs Vital Signs: Vital Signs - 24 hr 11/14/24 13:04 11/14/24 13:19 11/14/24 14:00 Temperature 36.6 C 36.8 C 36.9 C Pulse Rate 98 95 94 Respiratory Rate 18 16 18 Blood Pressure 114/67 104/75 117/65 Pulse Oximetry 100 100 100 Oxygen Delivery 11/14/24 14:19 11/14/24 15:19 11/14/24 15:50 Temperature 36.9 C 36.7 C 36.6 C Pulse Rate 94 91 89 Respiratory Rate 18 17 17 Blood Pressure 117/65 115/70 115/68 Pulse Oximetry 100 100 99 Oxygen Delivery 11/14/24 20:00 11/14/24 20:10 11/15/24 04:30 Temperature 36.8 C 36.2 C L Pulse Rate 92 89 Respiratory Rate 16 20 Blood Pressure 134/80 125/71 Pulse Oximetry 100 99 Oxygen Delivery Room Air Intake/Output Intake/Output: Intake & Output 11/12/24 11/13/24 11/14/24 11/15/24 23:59 23:59 23:59 23:59 Intake Total 50 5202 3729.0 1295.8 Output Total 74303 950 5050 700 Balance -81402 4252 -1321.0 595.8 Meds/Results Medications: Active Medications Generic Name Dose Route Start Last Admin Trade Name Freq PRN Reason Stop Dose Admin Acetaminophen 650 mg 11/12/24 18:06 Acetaminophen 325 Mg Tablet PO Q4H PRN Mild Pain (1-3) or Fever Hydrocodone Bitart/Acetaminophen 1 tab 11/12/24 18:06 Hydrocodone/Acetaminophen (*Crx) 5-325 Mg Tablet PO Q4H PRN Pain Rated 4-6 Ceftriaxone Sodium 1 gm in 50 mls @ 100 mls/hr 11/13/24 17:00 11/14/24 18:35 Rocephin 1 Gm/Ns 50 Ml IVPB Infused Q24H KRISTINE Infusion Sodium Chloride 1,000 mls @ 125 mls/hr 11/12/24 18:10 11/15/24 07:41 Normal Saline Iv IV CONT Not Given .Q8H KRISTINE Potassium Chloride 40 meq/ 520 mls @ 130 mls/hr 11/15/24 09:00 Sodium Chloride IVPB 11/15/24 12:59 ONCE ONE Ondansetron HCl 4 mg 11/12/24 18:06 Ondansetron Inj 4 Mg/2 Ml Vial IV PUSH Q4H PRN Nausea Pantoprazole Sodium 40 mg 11/14/24 09:25 11/15/24 08:26 Pantoprazole Sodium Iv 40 Mg Vial IV PUSH 40 mg Q12HR KRISTINE Administration Sodium Chloride 1 gm 11/13/24 09:00 11/15/24 08:26 Sodium Chloride 1 Gm Tablet PO 1 gm BID KRISTINE Administration Tamsulosin HCl 0.4 mg 11/13/24 09:00 11/15/24 08:26 Tamsulosin Hcl 0.4 Mg Capsule PO 0.4 mg QAM KRISTINE Administration Labs Labs: Laboratory Results - last 24 hr 11/14/24 11/14/24 11/14/24 06:38 13:51 16:57 WBC RBC Hgb 8.7 L Hct 27.1 L MCV MCH MCHC RDW Plt Count MPV Sodium Potassium 3.7 Chloride Carbon Dioxide Anion Gap BUN Creatinine Estim Creat Clear Calc Estimated GFR Glucose Calcium Magnesium 1.8 Total Bilirubin AST ALT Alkaline Phosphatase Total Protein Albumin Blood Type O Negative Antibody Screen Negative Crossmatch See Detail 11/15/24 05:58 WBC 4.5 RBC 2.82 L Hgb 8.1 L Hct 25.5 L MCV 90.4 MCH 28.7 MCHC 31.8 L RDW 16.2 H Plt Count 203 MPV 8.9 Sodium 137 Potassium 3.0 L Chloride 109 H Carbon Dioxide 22 Anion Gap 6 BUN 9 D Creatinine 0.82 Estim Creat Clear Calc 93 Estimated GFR > 60 Glucose 112 H Calcium 6.6 L Magnesium Total Bilirubin 0.3 AST 51 ALT 25 Alkaline Phosphatase 70 Total Protein 5.0 L Albumin 2.3 L Blood Type Antibody Screen Crossmatch
[2024-11-15] MEDS: POTASSIUM CHLORIDE INJ 40 MEQ in SODIUM CHLORIDE 0.9% IV 500 ML 130 MEQ IVPB (09:13)
[2024-11-15] MEDS: AMOXICILLIN/CLAVULANATE K SUSP 400-57 MG/5 ML 5 ML UD 500 MG PO ×2 (13:11→21:04)
[2024-11-15 14:30] VITALS: BP 114/70; PULSE 93; RESP 16; TEMP 36.3; O2SAT 99
[2024-11-15 20:09] VITALS: BP 140/69; PULSE 98; RESP 16; TEMP 37.3; O2SAT 98
[2024-11-16] MEDS: AMOXICILLIN/CLAVULANATE K SUSP 400-57 MG/5 ML 5 ML UD 500 MG PO ×3 (04:56→21:08)
[2024-11-16] MEDS: SODIUM CHLORIDE 0.9% IV 1,000 ML 125 ML IV CONT ×3 (04:56→21:13)
[2024-11-16 05:45] VITALS: BP 114/50; PULSE 88; RESP 16; TEMP 36.7; O2SAT 99
[2024-11-16] MEDS: SODIUM CHLORIDE 1 GM TABLET PO ×2 (08:14→17:19)
[2024-11-16] MEDS: TAMSULOSIN HCL 0.4 MG CAPSULE PO (08:14)
[2024-11-16] MEDS: PANTOPRAZOLE SODIUM IV 40 MG VIAL IV PUSH ×2 (08:14→21:07)
--- NOTE | 2024-11-16 11:02 | WPDUROPN2 ---
Progress Note: A&P Assessment and Plan (1) Acute UTI: Code(s): N39.0 - Urinary tract infection, site not specified Status: Acute Assessment and Plan: Present on admission Proteus was present. It is sensitive to Augmentin. Can be treated with oral medication as outpatient. (2) Hematuria: Qualifiers: Hematuria type: gross Qualified Code(s): R31.0 - Gross hematuria Code(s): R31.9 - Hematuria, unspecified Status: Acute Assessment and Plan: CBI clamped 11/16/24. He will need diagnostic cystoscopy as an outpatient to complete work up. (3) Acute urinary retention: Code(s): R33.8 - Other retention of urine Status: Acute Assessment and Plan: He will need to be discharged with a To catheter. He can have a voiding trial as an outpatient while on antibiotics for the UTI. Plan 59yoM admitted 11/12/2024. Resides in nursing facility. DNR code status noted. Subjective Subjective Date/Time Seen: 11/16/24 11:02 Interval history: NAEO; Afebrile Indwelling To currently draining yellow with few small black specks (old blood) on very slow CBI Clamped CBI around 1PM today Patient comfortable, no distress Exam Const: General: comfortable and no acute distress Resp: Effort & Inspection: normal respiratory effort Urinary Catheter: Urinary Catheter: patent and draining Neuro: Speech: normal speech Psych: Affect: normal affect Objective Data Vital Signs Vital Signs: Vital Signs - 24 hr 11/15/24 14:30 11/15/24 20:00 11/15/24 20:09 Temperature 97.4 F L 99.1 F Pulse Rate 93 98 Respiratory Rate 16 16 Blood Pressure 114/70 140/69 Pulse Oximetry 99 98 Oxygen Delivery Room Air 11/16/24 05:45 Temperature 98.1 F Pulse Rate 88 Respiratory Rate 16 Blood Pressure 114/50 L Pulse Oximetry 99 Oxygen Delivery Intake/Output Intake/Output: Intake & Output 11/13/24 11/14/24 11/15/24 11/16/24 23:59 23:59 23:59 23:59 Intake Total 5202 3729.0 3995.8 1164.6 Output Total 950 5050 3500 4350 Balance 4252 -1321.0 495.8 -3185.4 Meds/Results Medications: Active Medications Generic Name Dose Route Start Last Admin Trade Name Freq PRN Reason Stop Dose Admin Acetaminophen 650 mg 11/12/24 18:06 Acetaminophen 325 Mg Tablet PO Q4H PRN Mild Pain (1-3) or Fever Hydrocodone Bitart/Acetaminophen 1 tab 11/12/24 18:06 Hydrocodone/Acetaminophen (*Crx) 5-325 Mg Tablet PO Q4H PRN Pain Rated 4-6 Amoxicillin/Clavulanate Potassium 500 mg 11/15/24 14:00 11/16/24 04:56 Amoxicillin/Clavulanate K Susp 400-57 Mg/5 Ml 5 Ml Ud PO 11/19/24 06:01 500 mg Q8HR KRISTINE Administration Sodium Chloride 1,000 mls @ 125 mls/hr 11/12/24 18:10 11/16/24 04:56 Normal Saline Iv IV CONT 125 mls/hr .Q8H KRISTINE Administration Ondansetron HCl 4 mg 11/12/24 18:06 Ondansetron Inj 4 Mg/2 Ml Vial IV PUSH Q4H PRN Nausea Pantoprazole Sodium 40 mg 11/14/24 09:25 11/16/24 08:14 Pantoprazole Sodium Iv 40 Mg Vial IV PUSH 40 mg Q12HR KRISTINE Administration Sodium Chloride 1 gm 11/13/24 09:00 11/16/24 08:14 Sodium Chloride 1 Gm Tablet PO 1 gm BID KRISTINE Administration Tamsulosin HCl 0.4 mg 11/13/24 09:00 11/16/24 08:14 Tamsulosin Hcl 0.4 Mg Capsule PO 0.4 mg QAM KRISTINE Administration
[2024-11-16 12:02] LABS: Iron 29 ug/dL (49-181)
[2024-11-16 12:13] LABS: Percent Iron Saturation 18 % (20-50)
[2024-11-16 14:52] VITALS: BP 151/83; PULSE 92; RESP 18; TEMP 36.8; O2SAT 100
--- NOTE | 2024-11-16 16:55 | P.PNIM_ITS ---
Progress Note: A&P Assessment and Plan (1) Acute urinary retention: Code(s): R33.8 - Other retention of urine Status: Acute Assessment and Plan: Continue CBI Urine culture in August, grew E coli (pansensitive) Continue Flomax Continue ceftriaxone Urology following (2) SUZANNE (acute kidney injury): Code(s): N17.9 - Acute kidney failure, unspecified Status: Acute Assessment and Plan: Possibly due to dehydration Avoiding nephrotoxic drugs resolved (3) Acute UTI: Code(s): N39.0 - Urinary tract infection, site not specified Status: Acute Assessment and Plan: Urine culture shows Proteus mirabilis, sensitive to Rocephin S/p [place], now on Augmentin (4) Hematuria: Qualifiers: Hematuria type: gross Qualified Code(s): R31.0 - Gross hematuria Code(s): R31.9 - Hematuria, unspecified Status: Acute Assessment and Plan: S/p CBI monitor one more day Urology following (5) Chronic anemia: Code(s): D64.9 - Anemia, unspecified Status: Acute Assessment and Plan: Monitor H&H Currently receiving 1 unit PRBC Possibly due to hematuria hb 8.1 today (6) GERD with esophagitis: Qualifiers: Esophagitis bleeding: unspecified whether hemorrhage Qualified Code(s): K21.00 - Gastro-esophageal reflux disease with esophagitis, without bleeding Code(s): K21.00 - Gastro-esophageal reflux disease with esophagitis, without bleeding Status: Acute Assessment and Plan: Continue pantoprazole (7) Ulcerative colitis: Qualifiers: Ulcerative colitis location: unspecified ulcerative colitis location Digestive disease complication type: unspecified complication Qualified Code(s): K51.919 - Ulcerative colitis, unspecified with unspecified complications Code(s): K51.90 - Ulcerative colitis, unspecified, without complications Status: Acute Assessment and Plan: Unable to verify home medication Linzess (8) Leukopenia: Qualifiers: Leukopenia type: unspecified Qualified Code(s): D72.819 - Decreased white blood cell count, unspecified Code(s): D72.819 - Decreased white blood cell count, unspecified Status: Acute Assessment and Plan: Chronic Monitor fever ANC 2.6 Plan Urinary retention On pugh Urology recommended continueing pugh and will follow outpatient DVT prophylaxis on SCDs, not on AC due to hematuria Subjective Date/time seen: 11/16/24 16:55 Interval history: Comfortable at bedside Review of Systems Review of Systems: Review of systems essentially unobtainable due to patient's history of intellectual disability he is overall a poor historian. Exam Narrative: Weight 90.2 kg BMI 31.1 Const: Other: Obese, appears older than stated age, poor hygiene HENMT: Other: Mucous membranes are tacky, multiple missing teeth some a which are broken off at the gumline with multiple dental caries in his remaining teeth, crowded poste rior oropharynx Eyes: Other: Positive conjunctival pallor, mild scleral icterus, pupils are equal and reactive Neck: Other: No JVD, left anterior cervical lymphadenopathy at the base of the neck that is nontender but small pea-sized Resp: Other: Decreased breath sounds at the bases, no increased work of breathing Cardio: Other: Tachycardic, regular rhythm, with 2+ bilateral radial pedal pulses, no murmur GI: Other: Soft, nontender, nondistended, normoactive bowel sounds : Other: 3 way Pugh catheter in place with Kevin- Aid red colored urine draining in CBI Skin: Other: Thick yellow overgrown toenails, generalized pallor, normal temperature to touch, abrasion she posterior left forearm Neuro: Other: Alert oriented to person, place and reason for admission but overall poor historian, speech is clear but fluent and conversational Extrem: Other: No clubbing or cyanosis, 2+ pitting edema lower extremities Psych: Other: Pleasantly confused, cooperative, poor judgment and insight Objective Data Vital Signs Vital Signs: Vital Signs - 24 hr 11/15/24 20:00 11/15/24 20:09 11/16/24 05:45 Temperature 99.1 F 98.1 F Pulse Rate 98 88 Respiratory Rate 16 16 Blood Pressure 140/69 114/50 L Pulse Oximetry 98 99 Oxygen Delivery Room Air 11/16/24 07:15 11/16/24 14:52 Temperature 98.2 F Pulse Rate 92 Respiratory Rate 18 Blood Pressure 151/83 H Pulse Oximetry 100 Oxygen Delivery Room Air Intake/Output Intake/Output: Intake & Output 11/13/24 11/14/24 11/15/24 11/16/24 23:59 23:59 23:59 23:59 Intake Total 5202 3729.0 3995.8 2164.6 Output Total 950 5050 3500 4975 Balance 4252 -1321.0 495.8 -2810.4 Meds/Results Medications: Active Medications Generic Name Dose Route Start Last Admin Trade Name Freq PRN Reason Stop Dose Admin Acetaminophen 650 mg 11/12/24 18:06 Acetaminophen 325 Mg Tablet PO Q4H PRN Mild Pain (1-3) or Fever Hydrocodone Bitart/Acetaminophen 1 tab 11/12/24 18:06 Hydrocodone/Acetaminophen (*Crx) 5-325 Mg Tablet PO Q4H PRN Pain Rated 4-6 Amoxicillin/Clavulanate Potassium 500 mg 11/15/24 14:00 11/16/24 13:36 Amoxicillin/Clavulanate K Susp 400-57 Mg/5 Ml 5 Ml Ud PO 11/19/24 06:01 500 mg Q8HR KRISTINE Administration Sodium Chloride 1,000 mls @ 125 mls/hr 11/12/24 18:10 11/16/24 13:40 Normal Saline Iv IV CONT 125 mls/hr .Q8H KRISTINE Administration Ondansetron HCl 4 mg 11/12/24 18:06 Ondansetron Inj 4 Mg/2 Ml Vial IV PUSH Q4H PRN Nausea Pantoprazole Sodium 40 mg 11/14/24 09:25 11/16/24 08:14 Pantoprazole Sodium Iv 40 Mg Vial IV PUSH 40 mg Q12HR KRISTINE Administration Sodium Chloride 1 gm 11/13/24 09:00 11/16/24 08:14 Sodium Chloride 1 Gm Tablet PO 1 gm BID KRISTINE Administration Tamsulosin HCl 0.4 mg 11/13/24 09:00 11/16/24 08:14 Tamsulosin Hcl 0.4 Mg Capsule PO 0.4 mg QAM KRISTINE Administration Labs Labs: Laboratory Results - last 24 hr 11/16/24 11:29 Iron 29 L TIBC 158 L % Saturation 18 L Ferritin 451.00 H Quality VTE Prophylaxis VTE prophylaxis: mechanical ordered (SCDs)
[2024-11-16 20:57] VITALS: BP 147/84; PULSE 98; RESP 17; TEMP 37.2; O2SAT 100
[2024-11-17 05:48] VITALS: BP 127/79; PULSE 91; RESP 16; TEMP 36.7; O2SAT 99
[2024-11-17] MEDS: SODIUM CHLORIDE 0.9% IV 1,000 ML 125 ML IV CONT (06:11)
[2024-11-17 06:48] LABS: Basophils Percent Auto 0.3 % (0.2-1.2); Eosinophils Absolute Auto 0.2 K/mm3 (0-0.3); Eosinophils Percent Auto 2.5 % (0-4.4); Hematocrit 27.8 % (42.0-52.0); Hemoglobin 9.2 g/dL (14.0-18.0); Immature Granulocyte Percent A 1.2 % (0-0.5); Lymphocytes Absolute Auto 1.46 K/mm3 (0.9-3.2); Lymphocytes Percent Auto 16.8 % (18.3-44.2); Mean Corpuscular HGB Conc 33.1 g/dl (32-36); Mean Corpuscular Hemoglobin 28.8 pg (26-34); Mean Corpuscular Volume 87.1 fl (80-100); Mean Platelet Volume 8.8 fl (7.4-10.4); Monocytes Absolute Auto 0.8 K/mm3 (0.1-0.6); Monocytes Percent Auto 9.2 % (2.6-8.5); Neutrophils Absolute Auto 6.1 K/mm3 (1.3-6.7); Platelet Count Result 308 k/mm3 (150-375); Red Blood Count 3.19 M/mm3 (4.6-6.20); Red Cell Distribution Width 15.7 % (11.5-14.5); White Blood Count 8.7 K/mm3 (4.5-10.0)
[2024-11-17 07:02] LABS: Alanine Aminotransferase 24 U/L (6-50); Albumin Level 2.8 g/dL (3.5-5.1); Alkaline Phosphatase 91 U/L (38-126); Anion Gap 7 mmol/L (4-12); Aspartate Amino Transferase 40 U/L (17-59); Bilirubin,Total 0.9 mg/dL (0.2-1.3); Blood Urea Nitrogen 5 mg/dL (9-20); Carbon Dioxide 23 mmol/L (22-30); Chloride 102 mmol/L (98-107); Estimated CRCL calculation 107 ml/min; Estimated Glomerular Filt Rate > 60; Glucose 121 mg/dL (65-110); Magnesium 1.2 mg/dL (1.6-2.3); Potassium 3.3 mmol/L (3.4-5.0); Sodium 132 mmol/L (137-145)
[2024-11-17] MEDS: PANTOPRAZOLE SODIUM IV 40 MG VIAL IV PUSH ×2 (08:47→20:05)
[2024-11-17] MEDS: SODIUM CHLORIDE 1 GM TABLET PO ×2 (08:47→16:23)
[2024-11-17] MEDS: TAMSULOSIN HCL 0.4 MG CAPSULE PO (08:47)
[2024-11-17] MEDS: MAGNESIUM SULF 4 GM/WATER100ML 4 GM/100 ML BAG IVPB (08:48)
--- NOTE | 2024-11-17 13:30 | P.PNIM_ITS ---
Progress Note: A&P Assessment and Plan (1) Acute urinary retention: Code(s): R33.8 - Other retention of urine Status: Acute Assessment and Plan: s/p CBI Urine culture in August, grew E coli (pansensitive) Continue Flomax patietn will discharge with pugh adn follow up with urology per their plan Urology following (2) SUZANNE (acute kidney injury): Code(s): N17.9 - Acute kidney failure, unspecified Status: Acute Assessment and Plan: Possibly due to dehydration Avoiding nephrotoxic drugs resolved (3) Acute UTI: Code(s): N39.0 - Urinary tract infection, site not specified Status: Acute Assessment and Plan: Urine culture shows Proteus mirabilis, sensitive to Rocephin S/p [place], now on Augmentin (4) Hematuria: Qualifiers: Hematuria type: gross Qualified Code(s): R31.0 - Gross hematuria Code(s): R31.9 - Hematuria, unspecified Status: Acute Assessment and Plan: S/p CBI monitor one more day Urology following (5) Chronic anemia: Code(s): D64.9 - Anemia, unspecified Status: Acute Assessment and Plan: Monitor H&H Currently receiving 1 unit PRBC Possibly due to hematuria hb 8.1 today (6) GERD with esophagitis: Qualifiers: Esophagitis bleeding: unspecified whether hemorrhage Qualified Code(s): K21.00 - Gastro-esophageal reflux disease with esophagitis, without bleeding Code(s): K21.00 - Gastro-esophageal reflux disease with esophagitis, without bleeding Status: Acute Assessment and Plan: Continue pantoprazole (7) Ulcerative colitis: Qualifiers: Ulcerative colitis location: unspecified ulcerative colitis location Digestive disease complication type: unspecified complication Qualified Code(s): K51.919 - Ulcerative colitis, unspecified with unspecified complications Code(s): K51.90 - Ulcerative colitis, unspecified, without complications Status: Acute Assessment and Plan: Unable to verify home medication Linzess (8) Leukopenia: Qualifiers: Leukopenia type: unspecified Qualified Code(s): D72.819 - Decreased white blood cell count, unspecified Code(s): D72.819 - Decreased white blood cell count, unspecified Status: Acute Assessment and Plan: Chronic Monitor fever ANC 2.6 Plan Urinary retention On pugh Urology recommended continueing pugh and will follow outpatient Hypomagenesemia Mg 1.2 Give 4g IV and montior DVT prophylaxis on SCDs, not on AC due to hematuria Subjective Date/time seen: 11/17/24 13:30 Interval history: Comfortable at bedside Review of Systems Review of Systems: Review of systems essentially unobtainable due to patient's history of intellectual disability he is overall a poor historian. Exam Narrative: Weight 90.2 kg BMI 31.1 Const: Other: Obese, appears older than stated age, poor hygiene HENMT: Other: Mucous membranes are tacky, multiple missing teeth some a which are broken off at the gumline with multiple dental caries in his remaining teeth, crowded posterior oropharynx Eyes: Other: Positive conjunctival pallor, mild scleral icterus, pupils are equal and reactive Neck: Other: No JVD, left anterior cervical lymphadenopathy at the base of the neck that is nontender but small pea-sized Resp: Other: Decreased breath sounds at the bases, no increased work of breathing Cardio: Other: Tachycardic, regular rhythm, with 2+ bilateral radial pedal pulses, no murmur GI: Other: Soft, nontender, nondistended, normoactive bowel sounds : Other: 3 way Pugh catheter in place with Kevin- Aid red colored urine draining in CBI Skin: Other: Thick yellow overgrown toenails, generalized pallor, normal temperature to touch, abrasion she posterior left forearm Neuro: Other: Alert oriented to person, place and reason for admission but overall poor historian, speech is clear but fluent and conversational Extrem: Other: No clubbing or cyanosis, 2+ pitting edema lower extremities Psych: Other: Pleasantly confused, cooperative, poor judgment and insight Objective Data Vital Signs Vital Signs: Vital Signs - 24 hr 11/16/24 14:52 11/16/24 20:57 11/17/24 05:48 Temperature 98.2 F 99.0 F 98.0 F Pulse Rate 92 98 91 Respiratory Rate 18 17 16 Blood Pressure 151/83 H 147/84 H 127/79 Pulse Oximetry 100 100 99 Oxygen Delivery 11/17/24 08:00 Temperature Pulse Rate Respiratory Rate Blood Pressure Pulse Oximetry Oxygen Delivery Room Air Intake/Output Intake/Output: Intake & Output 11/14/24 11/15/24 11/16/2411/17/25 23:59 23:59 23:59 23:59 Intake Total 3729.0 3995.8 3328.4 1240 Output Total 5050 3500 5402 2250 Balance -1321.0 495.8 -2096.6 -1010 Meds/Results Medications: Active Medications Generic Name Dose Route Start Last Admin Trade Name Freq PRN Reason Stop Dose Admin Acetaminophen 650 mg 11/12/24 18:06 Acetaminophen 325 Mg Tablet PO Q4H PRN Mild Pain (1-3) or Fever Hydrocodone Bitart/Acetaminophen 1 tab 11/12/24 18:06 Hydrocodone/Acetaminophen (*Crx) 5-325 Mg Tablet PO Q4H PRN Pain Rated 4-6 Amoxicillin/Clavulanate Potassium 500 mg 11/15/24 14:00 11/17/24 06:12 Amoxicillin/Clavulanate K Susp 400-57 Mg/5 Ml 5 Ml Ud PO 11/19/24 06:01 Not Given Q8HR KRISTINE Ondansetron HCl 4 mg 11/12/24 18:06 Ondansetron Inj 4 Mg/2 Ml Vial IV PUSH Q4H PRN Nausea Pantoprazole Sodium 40 mg 11/14/24 09:25 11/17/24 08:47 Pantoprazole Sodium Iv 40 Mg Vial IV PUSH 40 mg Q12HR KRISTINE Administration Sodium Chloride 1 gm 11/13/24 09:00 11/17/24 08:47 Sodium Chloride 1 Gm Tablet PO 1 gm BID KRISTINE Administration Tamsulosin HCl 0.4 mg 11/13/24 09:00 11/17/24 08:47 Tamsulosin Hcl 0.4 Mg Capsule PO 0.4 mg QAM KRISTINE Administration Labs Labs: Laboratory Results - last 24 hr 11/17/24 06:17 WBC 8.7 RBC 3.19 L Hgb 9.2 L Hct 27.8 L MCV 87.1 MCH 28.8 MCHC 33.1 RDW 15.7 H Plt Count 308 D MPV 8.8 Immature Gran % (Auto) 1.2 H Neut % (Auto) 70.0 Lymph % (Auto) 16.8 L [place] % (Auto) 9.2 H Eos % (Auto) 2.5 Baso % (Auto) 0.3 Lymph # (Auto) 1.46 [place] # (Auto) 0.8 H Eos # (Auto) 0.2 Baso # (Auto) 0.0 Abs Immat Gran (auto) 0.10 H Absolute Neuts (auto) 6.1 Absolute Nucleated RBC 0.000 Nucleated RBC % 0.0 Sodium 132 L Potassium 3.3 L Chloride 102 Carbon Dioxide 23 Anion Gap 7 BUN 5 L Creatinine 0.70 Estim Creat Clear Calc 107 Estimated GFR > 60 Glucose 121 H Calcium 7.0 L Magnesium 1.2 L Total Bilirubin 0.9 AST 40 ALT 24 Alkaline Phosphatase 91 Total Protein 6.0 L Albumin 2.8 L Quality VTE Prophylaxis VTE prophylaxis: mechanical ordered (SCDs)
[2024-11-17] MEDS: AMOXICILLIN/CLAVULANATE K SUSP 400-57 MG/5 ML 5 ML UD 500 MG PO ×2 (13:53→20:07)
[2024-11-17 14:00] VITALS: BP 115/73; PULSE 107; RESP 18; TEMP 37.7; O2SAT 97
[2024-11-17] MEDS: ACETAMINOPHEN 325 MG TABLET 650 MG PO (14:43)
[2024-11-17 15:43] VITALS: TEMP 37.7
[2024-11-17 21:57] VITALS: BP 123/72; PULSE 108; RESP 16; TEMP 37.2; O2SAT 98
--- NOTE | 2024-11-17 22:47 | WPDUROPN2 ---
Progress Note: A&P Assessment and Plan (1) Acute UTI: Code(s): N39.0 - Urinary tract infection, site not specified Status: Acute Assessment and Plan: Present on admission Proteus was present. It is sensitive to Augmentin. Can be treated with oral medication as outpatient. (2) Hematuria: Qualifiers: Hematuria type: gross Qualified Code(s): R31.0 - Gross hematuria Code(s): R31.9 - Hematuria, unspecified Status: Acute Assessment and Plan: CBI clamped 11/16/24. He will need discharged with pugh. He will need diagnostic cystoscopy as an outpatient to complete work up. (3) Acute urinary retention: Code(s): R33.8 - Other retention of urine Status: Acute Assessment and Plan: He will need to be discharged with a Pugh catheter. He can have a voiding trial as an outpatient while on antibiotics for the UTI. Plan 59yoM admitted 11/12/2024. Resides in nursing facility. DNR code status noted. labs are stable Subjective Subjective Date/Time Seen: 11/17/24 22:47 Interval history: Afebrile Indwelling Pugh currently draining with some areas of hematuria. CBI was clamped yesterday. Patient comfortable, no distress output appropriate. Review of Systems Review of Systems: All systems reviewed & are unremarkable except as noted in HPI and below Exam Const: General: cooperative, healthy appearing, comfortable and no acute distress HENMT: Head: normal to inspection Resp: Effort & Inspection: normal respiratory effort : Penis: Yes normal penis Urinary Catheter: Urinary Catheter: patent and draining and urine dark Neuro: Speech: normal speech Psych: Affect: normal affect Objective Data Vital Signs Vital Signs: Vital Signs - 24 hr 11/17/24 05:48 11/17/24 08:00 11/17/24 14:00 Temperature 98.0 F 99.8 F H Pulse Rate 91 107 H Respiratory Rate 16 18 Blood Pressure 127/79 115/73 Pulse Oximetry 99 97 Oxygen Delivery Room Air 11/17/24 15:43 Temperature 99.9 F H Pulse Rate Respiratory Rate Blood Pressure Pulse Oximetry Oxygen Delivery Intake/Output Intake/Output: Intake & Output 11/14/24 11/15/24 11/16/24 11/17/24 23:59 23:59 23:59 23:59 Intake Total 3729.0 3995.8 3328.4 1720 Output Total 5050 3500 5480 3650 Balance -1321.0 495.8 -2096.6 -1930 Meds/Results Medications: Active Medications Generic Name Dose Route Start Last Admin Trade Name Freq PRN Reason Stop Dose Admin Acetaminophen 650 mg 11/12/24 18:06 11/17/24 14:43 Acetaminophen 325 Mg Tablet PO 650 mg Q4H PRN Administration Mild Pain (1-3) or Fever Hydrocodone Bitart/Acetaminophen 1 tab 11/12/24 18:06 Hydrocodone/Acetaminophen (*Crx) 5-325 Mg Tablet PO Q4H PRN Pain Rated 4-6 Amoxicillin/Clavulanate Potassium 500 mg 11/15/24 14:00 11/17/24 20:07 Amoxicillin/Clavulanate K Susp 400-57 Mg/5 Ml 5 Ml Ud PO 11/19/24 06:01 500 mg Q8HR KRISTINE Administration Ondansetron HCl 4 mg 11/12/24 18:06 Ondansetron Inj 4 Mg/2 Ml Vial IV PUSH Q4H PRN Nausea Pantoprazole Sodium 40 mg 11/14/24 09:25 11/17/24 20:05 Pantoprazole Sodium Iv 40 Mg Vial IV PUSH 40 mg Q12HR KRISTINE Administration Sodium Chloride 1 gm 11/13/24 09:00 11/17/24 16:23 Sodium Chloride 1 Gm Tablet PO 1 gm BID KRISTINE Administration Tamsulosin HCl 0.4 mg 11/13/24 09:00 11/17/24 08:47 Tamsulosin Hcl 0.4 Mg Capsule PO 0.4 mg QAM KRISTINE Administration Labs Labs: Laboratory Results - last 24 hr 11/17/24 06:17 WBC 8.7 RBC 3.19 L Hgb 9.2 L Hct 27.8 L MCV 87.1 MCH 28.8 MCHC 33.1 RDW 15.7 H Plt Count 308 D MPV 8.8 Immature Gran % (Auto) 1.2 H Neut % (Auto) 70.0 Lymph % (Auto) 16.8 L [place] % (Auto) 9.2 H Eos % (Auto) 2.5 Baso % (Auto) 0.3 Lymph # (Auto) 1.46 [place] # (Auto) 0.8 H Eos # (Auto) 0.2 Baso # (Auto) 0.0 Abs Immat Gran (auto) 0.10 H Absolute Neuts (auto) 6.1 Absolute Nucleated RBC 0.000 Nucleated RBC % 0.0 Sodium 132 L Potassium 3.3 L Chloride 102 Carbon Dioxide 23 Anion Gap 7 BUN 5 L Creatinine 0.70 Estim Creat Clear Calc 107 Estimated GFR > 60 Glucose 121 H Calcium 7.0 L Magnesium 1.2 L Total Bilirubin 0.9 AST 40 ALT 24 Alkaline Phosphatase 91 Total Protein 6.0 L Albumin 2.8 L
[2024-11-18 04:33] VITALS: BP 116/69; PULSE 98; RESP 16; TEMP 36.4; O2SAT 98
[2024-11-18] MEDS: AMOXICILLIN/CLAVULANATE K SUSP 400-57 MG/5 ML 5 ML UD 500 MG PO (06:27)
[2024-11-18] MEDS: PANTOPRAZOLE SODIUM IV 40 MG VIAL IV PUSH ×2 (09:20→21:12)
[2024-11-18] MEDS: SODIUM CHLORIDE 1 GM TABLET PO ×2 (09:21→17:11)
[2024-11-18] MEDS: TAMSULOSIN HCL 0.4 MG CAPSULE PO (09:21)
[2024-11-18 09:58] LABS: Basophils Percent Auto 0.3 % (0.2-1.2); Eosinophils Absolute Auto 0.3 K/mm3 (0-0.3); Eosinophils Percent Auto 2.1 % (0-4.4); Hematocrit 28.6 % (42.0-52.0); Hemoglobin 9.4 g/dL (14.0-18.0); Immature Granulocyte Absolute 0.07 K/mm3 (0.00-0.031); Immature Granulocyte Percent A 0.6 % (0-0.5); Lymphocytes Percent Auto 15.4 % (18.3-44.2); Mean Corpuscular HGB Conc 32.9 g/dl (32-36); Mean Corpuscular Hemoglobin 28.8 pg (26-34); Mean Corpuscular Volume 87.7 fl (80-100); Mean Platelet Volume 8.3 fl (7.4-10.4); Monocytes Absolute Auto 0.6 K/mm3 (0.1-0.6); Neutrophils Absolute Auto 8.9 K/mm3 (1.3-6.7); Neutrophils Percent Auto 76.6 % (45.5-73.1); Platelet Count Result 348 k/mm3 (150-375); Red Blood Count 3.26 M/mm3 (4.6-6.20); Red Cell Distribution Width 15.9 % (11.5-14.5); White Blood Count 11.7 K/mm3 (4.5-10.0)
[2024-11-18 10:23] LABS: Alanine Aminotransferase 29 U/L (6-50); Albumin Level 2.9 g/dL (3.5-5.1); Alkaline Phosphatase 117 U/L (38-126); Anion Gap 7 mmol/L (4-12); Aspartate Amino Transferase 44 U/L (17-59); Bilirubin,Total 0.9 mg/dL (0.2-1.3); Blood Urea Nitrogen 10 mg/dL (9-20); Calcium 7.6 mg/dL (8.4-10.2); Carbon Dioxide 26 mmol/L (22-30); Chloride 99 mmol/L (98-107); Estimated CRCL calculation 98 ml/min; Estimated Glomerular Filt Rate > 60; Glucose 125 mg/dL (65-110); Magnesium 2.1 mg/dL (1.6-2.3); Potassium 3.8 mmol/L (3.4-5.0); Sodium 132 mmol/L (137-145)
[2024-11-18 14:00] VITALS: BP 111/67; PULSE 94; RESP 16; TEMP 36.1; O2SAT 99
[2024-11-18] MEDS: AMOXICILLIN/CLAVULANATE K SUSP 500 MG/6.25 ML UD PO ×2 (14:48→21:12)
--- NOTE | 2024-11-18 16:06 | WPDUROPN2 ---
Progress Note: A&P Assessment and Plan (1) Acute UTI: Code(s): N39.0 - Urinary tract infection, site not specified Status: Acute (2) Hematuria: Qualifiers: Hematuria type: gross Qualified Code(s): R31.0 - Gross hematuria Code(s): R31.9 - Hematuria, unspecified Status: Acute Assessment and Plan: He will need discharged with pugh. He will need diagnostic cystoscopy as an outpatient to complete work up. (3) Acute urinary retention: Code(s): R33.8 - Other retention of urine Status: Acute Assessment and Plan: He will need to be discharged with a Pugh catheter. He can have a voiding trial as an outpatient while on antibiotics for the UTI. Plan 59yoM admitted 11/12/2024. Resides in nursing facility. DNR code status noted. -labs are stable -CTU to assess for clots in the bladder. -unable to get onto surgery schedule for cysto tomorrow so will have to f/u as outpatient. Subjective Subjective Date/Time Seen: 11/18/24 16:06 Interval history: Afebrile Indwelling Pugh currently draining with some old hematuria. Patient comfortable, no distress output appropriate. Review of Systems Review of Systems: All systems reviewed & are unremarkable except as noted in HPI and below Exam Const: General: cooperative, healthy appearing, comfortable and no acute distress HENMT: Head: normal to inspection Resp: Effort & Inspection: normal respiratory effort : Penis: Yes normal penis Urinary Catheter: Urinary Catheter: patent and draining and urine dark Neuro: Speech: normal speech Objective Data Vital Signs Vital Signs: Vital Signs - 24 hr 11/17/24 21:57 11/18/24 04:33 11/18/24 08:00 Temperature 99.0 F 97.6 F Pulse Rate 108 H 98 Respiratory Rate 16 16 Blood Pressure 123/72 116/69 Pulse Oximetry 98 98 Oxygen Delivery Room Air 11/18/24 13:47 11/18/24 14:00 Temperature 96.9 F L Pulse Rate 94 Respiratory Rate 16 Blood Pressure 111/67 Pulse Oximetry 99 Oxygen Delivery Room Air Intake/Output Intake/Output: Intake & Output 11/15/24 11/16/24 11/17/24 11/18/24 23:59 23:59 23:59 23:59 Intake Total 3995.8 3328.4 1720 477 Output Total 3500 5425 3650 750 Balance 495.8 -2096.6 -1930 -273 Meds/Results Medications: Active Medications Generic Name Dose Route Start Last Admin Trade Name Freq PRN Reason Stop Dose Admin Acetaminophen 650 mg 11/12/24 18:06 11/17/24 14:43 Acetaminophen 325 Mg Tablet PO 650 mg Q4H PRN Administration Mild Pain (1-3) or Fever Hydrocodone Bitart/Acetaminophen 1 tab 11/12/24 18:06 Hydrocodone/Acetaminophen (*Crx) 5-325 Mg Tablet PO Q4H PRN Pain Rated 4-6 Amoxicillin/Clavulanate Potassium 500 mg 11/18/24 14:00 11/18/24 14:48 Amoxicillin/Clavulanate K Susp 500 Mg/6.25 Ml Ud PO 11/19/24 06:01 500 mg Q8HR KRISTINE Administration Ondansetron HCl 4 mg 11/12/24 18:06 Ondansetron Inj 4 Mg/2 Ml Vial IV PUSH Q4H PRN Nausea Pantoprazole Sodium 40 mg 11/14/24 09:25 11/18/24 09:20 Pantoprazole Sodium Iv 40 Mg Vial IV PUSH 40 mg Q12HR KRISTINE Administration Sodium Chloride 1 gm 11/13/24 09:00 11/18/24 09:21 Sodium Chloride 1 Gm Tablet PO 1 gm BID KRISTINE Administration Tamsulosin HCl 0.4 mg 11/13/24 09:00 11/18/24 09:21 Tamsulosin Hcl 0.4 Mg Capsule PO 0.4 mg QAM KRISTINE Administration Labs Labs: Laboratory Results - last 24 hr 11/18/24 09:50 WBC 11.7 H RBC 3.26 L Hgb 9.4 L Hct 28.6 L MCV 87.7 MCH 28.8 MCHC 32.9 RDW 15.9 H Plt Count 348 MPV 8.3 Immature Gran % (Auto) 0.6 H Neut % (Auto) 76.6 H Lymph % (Auto) 15.4 L [place] % (Auto) 5.0 Eos % (Auto) 2.1 Baso % (Auto) 0.3 Lymph # (Auto) 1.80 [place] # (Auto) 0.6 Eos # (Auto) 0.3 Baso # (Auto) 0.0 Abs Immat Gran (auto) 0.07 H Absolute Neuts (auto) 8.9 H Absolute Nucleated RBC 0.000 Nucleated RBC % 0.0 Sodium 132 L Potassium 3.8 Chloride 99 Carbon Dioxide 26 Anion Gap 7 BUN 10 D Creatinine 0.77 Estim Creat Clear Calc 98 Estimated GFR > 60 Glucose 125 H Calcium 7.6 L Magnesium 2.1 Total Bilirubin 0.9 AST 44 ALT 29 Alkaline Phosphatase 117 Total Protein 7.0 Albumin 2.9 L
--- NOTE | 2024-11-18 18:27 | P.PNIM_ITS ---
Progress Note: A&P Assessment and Plan (1) Acute urinary retention: Code(s): R33.8 - Other retention of urine Status: Acute Assessment and Plan: s/p CBI Urine culture in August, grew E coli (pansensitive) Continue Flomax patietn will discharge with pugh adn follow up with urology per their plan Urology following (2) SUZANNE (acute kidney injury): Code(s): N17.9 - Acute kidney failure, unspecified Status: Acute Assessment and Plan: Possibly due to dehydration Avoiding nephrotoxic drugs resolved (3) Acute UTI: Code(s): N39.0 - Urinary tract infection, site not specified Status: Acute Assessment and Plan: Urine culture shows Proteus mirabilis, sensitive to Rocephin S/p [place], now on Augmentin (4) Hematuria: Qualifiers: Hematuria type: gross Qualified Code(s): R31.0 - Gross hematuria Code(s): R31.9 - Hematuria, unspecified Status: Acute Assessment and Plan: S/p CBI monitor one more day Urology following (5) Chronic anemia: Code(s): D64.9 - Anemia, unspecified Status: Acute Assessment and Plan: Monitor H&H Currently receiving 1 unit PRBC Possibly due to hematuria hb 8.1 today (6) GERD with esophagitis: Qualifiers: Esophagitis bleeding: unspecified whether hemorrhage Qualified Code(s): K21.00 - Gastro-esophageal reflux disease with esophagitis, without bleeding Code(s): K21.00 - Gastro-esophageal reflux disease with esophagitis, without bleeding Status: Acute Assessment and Plan: Continue pantoprazole (7) Ulcerative colitis: Qualifiers: Ulcerative colitis location: unspecified ulcerative colitis location Digestive disease complication type: unspecified complication Qualified Code(s): K51.919 - Ulcerative colitis, unspecified with unspecified complications Code(s): K51.90 - Ulcerative colitis, unspecified, without complications Status: Acute Assessment and Plan: Unable to verify home medication Linzess (8) Leukopenia: Qualifiers: Leukopenia type: unspecified Qualified Code(s): D72.819 - Decreased white blood cell count, unspecified Code(s): D72.819 - Decreased white blood cell count, unspecified Status: Acute Assessment and Plan: Chronic Monitor fever ANC 2.6 Plan Urinary retention On pugh Urology recommended continueing pugh and will follow outpatient Hypomagenesemia Mg 1.2 Give 4g IV and montior DVT prophylaxis on SCDs, not on AC due to hematuria Subjective Date/time seen: 11/18/24 18:27 Interval history: Patient comfortable, no distress Indwelling Pugh still draining bloody urine still having poor oral intake Review of Systems Review of Systems: Review of systems essentially unobtainable due to patient's history of intellect ual disability he is overall a poor historian. Exam Narrative: Weight 90.2 kg BMI 31.1 Const: Other: Obese, appears older than stated age, poor hygiene HENMT: Other: Mucous membranes are tacky, multiple missing teeth some a which are broken off at the gumline with multiple dental caries in his remaining teeth, crowded posterior oropharynx Eyes: Other: Positive conjunctival pallor, mild scleral icterus, pupils are equal and reactive Neck: Other: No JVD, left anterior cervical lymphadenopathy at the base of the neck that is nontender but small pea-sized Resp: Other: Decreased breath sounds at the bases, no increased work of breathing Cardio: Other: Tachycardic, regular rhythm, with 2+ bilateral radial pedal pulses, no murmur GI: Other: Soft, nontender, nondistended, normoactive bowel sounds : Other: 3 way Pugh catheter in place with Kevin- Aid red colored urine draining in CBI Skin: Other: Thick yellow overgrown toenails, generalized pallor, normal temperature to touch, abrasion she posterior left forearm Neuro: Other: Alert oriented to person, place and reason for admission but overall poor historian, speech is clear but fluent and conversational Extrem: Other: No clubbing or cyanosis, 2+ pitting edema lower extremities Psych: Other: Pleasantly confused, cooperative, poor judgment and insight Objective Data Vital Signs Vital Signs: Vital Signs - 24 hr 11/17/24 21:57 11/18/24 04:33 11/18/24 08:00 Temperature 99.0 F 97.6 F Pulse Rate 108 H 98 Respiratory Rate 16 16 Blood Pressure 123/72 116/69 Pulse Oximetry 98 98 Oxygen Delivery Room Air 11/18/24 13:47 11/18/24 14:00 Temperature 96.9 F L Pulse Rate 94 Respiratory Rate 16 Blood Pressure 111/67 Pulse Oximetry 99 Oxygen Delivery Room Air Intake/Output Intake/Output: Intake & Output 11/15/24 11/16/24 11/17/24 11/18/24 23:59 23:59 23:59 23:59 Intake Total 3995.8 3328.4 1720 1521 Output Total 3500 5425 3650 750 Balance 495.8 -2096.6 -1930 771 Meds/Results Medications: Active Medications Generic Name Dose Route Start Last Admin Trade Name Freq PRN Reason Stop Dose Admin Acetaminophen 650 mg 11/12/24 18:06 11/17/24 14:43 Acetaminophen 325 Mg Tablet PO 650 mg Q4H PRN Administration Mild Pain (1-3) or Fever Hydrocodone Bitart/Acetaminophen 1 tab 11/12/24 18:06 Hydrocodone/Acetaminophen (*Crx) 5-325 Mg Tablet PO Q4H PRN Pain Rated 4-6 Amoxicillin/Clavulanate Potassium 500 mg 11/18/24 14:00 11/18/24 14:48 Amoxicillin/Clavulanate K Susp 500 Mg/6.25 Ml Ud PO 11/19/24 06:01 500 mg Q8HR KRISTINE Administration Dronabinol 2.5 mg 11/18/24 18:30 Dronabinol (*Crx) 2.5 Mg Capsule PO BID KRISTINE Ondansetron HCl 4 mg 11/12/24 18:06 Ondansetron Inj 4 Mg/2 Ml Vial IV PUSH Q4H PRN Nausea Pantoprazole Sodium 40 mg 11/14/24 09:25 11/18/24 09:20 Pantoprazole Sodium Iv 40 Mg Vial IV PUSH 40 mg Q12HR KRISTINE Administration Sodium Chloride 1 gm 11/13/24 09:00 11/18/24 17:11 Sodium Chloride 1 Gm Tablet PO 1 gm BID KRISTINE Administration Tamsulosin HCl 0.4 mg 11/13/24 09:00 11/18/24 09:21 Tamsulosin Hcl 0.4 Mg Capsule PO 0.4 mg QAM KRISTINE Administration Labs Labs: Laboratory Results - last 24 hr 11/18/24 09:50 WBC 11.7 H RBC 3.26 L Hgb 9.4 L Hct 28.6 L MCV 87.7 MCH 28.8 MCHC 32.9 RDW 15.9 H Plt Count 348 MPV 8.3 Immature Gran % (Auto) 0.6 H Neut % (Auto) 76.6 H Lymph % (Auto) 15.4 L [place] % (Auto) 5.0 Eos % (Auto) 2.1 Baso % (Auto) 0.3 Lymph # (Auto) 1.80 [place]eman # (Auto) 0.6 Eos # (Auto) 0.3 Baso # (Auto) 0.0 Abs Immat Gran (auto) 0.07 H Absolute Neuts (auto) 8.9 H Absolute Nucleated RBC 0.000 Nucleated RBC % 0.0 Sodium 132 L Potassium 3.8 Chloride 99 Carbon Dioxide 26 Anion Gap 7 BUN 10 D Creatinine 0.77 Estim Creat Clear Calc 98 Estimated GFR > 60 Glucose 125 H Calcium 7.6 L Magnesium 2.1 Total Bilirubin 0.9 AST 44 ALT 29 Alkaline Phosphatase 117 Total Protein 7.0 Albumin 2.9 L Quality VTE Prophylaxis VTE prophylaxis: mechanical ordered (SCDs)
[2024-11-18] MEDS: droNABinol (*CRX) 2.5 MG CAPSULE PO (19:12)
[2024-11-18 21:39] VITALS: BP 106/82; PULSE 110; RESP 20; TEMP 36.9; O2SAT 99
[2024-11-18 22:00] VITALS: PULSE 104; RESP 14; O2SAT 95
[2024-11-19] MEDS: AMOXICILLIN/CLAVULANATE K SUSP 500 MG/6.25 ML UD PO (05:10)
[2024-11-19 06:00] VITALS: BP 103/67; PULSE 91; RESP 20; TEMP 36.9; O2SAT 98
[2024-11-19 06:26] LABS: Basophils Absolute Auto 0.1 K/mm3 (0.0-0.1); Basophils Percent Auto 0.5 % (0.2-1.2); Eosinophils Absolute Auto 0.5 K/mm3 (0-0.3); Eosinophils Percent Auto 5.4 % (0-4.4); Hematocrit 27.6 % (42.0-52.0); Hemoglobin 8.7 g/dL (14.0-18.0); Immature Granulocyte Absolute 0.07 K/mm3 (0.00-0.031); Immature Granulocyte Percent A 0.7 % (0-0.5); Lymphocytes Percent Auto 21.4 % (18.3-44.2); Mean Corpuscular HGB Conc 31.5 g/dl (32-36); Mean Corpuscular Hemoglobin 28.6 pg (26-34); Mean Corpuscular Volume 90.8 fl (80-100); Mean Platelet Volume 8.6 fl (7.4-10.4); Monocytes Absolute Auto 0.3 K/mm3 (0.1-0.6); Monocytes Percent Auto 3.3 % (2.6-8.5); Neutrophils Absolute Auto 6.7 K/mm3 (1.3-6.7); Neutrophils Percent Auto 68.7 % (45.5-73.1); Platelet Count Result 418 k/mm3 (150-375); Red Blood Count 3.04 M/mm3 (4.6-6.20); Red Cell Distribution Width 15.9 % (11.5-14.5); White Blood Count 9.8 K/mm3 (4.5-10.0)
[2024-11-19 06:38] LABS: Alanine Aminotransferase 28 U/L (6-50); Albumin Level 2.7 g/dL (3.5-5.1); Alkaline Phosphatase 129 U/L (38-126); Anion Gap 8 mmol/L (4-12); Aspartate Amino Transferase 40 U/L (17-59); Bilirubin,Total 0.7 mg/dL (0.2-1.3); Blood Urea Nitrogen 10 mg/dL (9-20); Calcium 7.9 mg/dL (8.4-10.2); Carbon Dioxide 25 mmol/L (22-30); Chloride 100 mmol/L (98-107); Estimated CRCL calculation 105 ml/min; Estimated Glomerular Filt Rate > 60; Glucose 84 mg/dL (65-110); Potassium 3.3 mmol/L (3.4-5.0); Sodium 133 mmol/L (137-145)
[2024-11-19] MEDS: SODIUM CHLORIDE 1 GM TABLET PO (08:03)
[2024-11-19] MEDS: PANTOPRAZOLE SODIUM IV 40 MG VIAL IV PUSH (08:03)
[2024-11-19] MEDS: POTASSIUM CHLORIDE INJ 40 MEQ in SODIUM CHLORIDE 0.9% IV 500 ML 130 MEQ IVPB (09:35)
--- NOTE | 2024-11-19 11:49 | P.DS_ITS ---
DS: Admitting Diagnosis Discharge Date 11/19/24 Admitting Diagnosis Hematuria DS: Discharge Diagnosis Discharge Diagnosis (1) Acute urinary retention: Code(s): R33.8 - Other retention of urine Status: Acute (2) Hematuria: Qualifiers: Hematuria type: gross Qualified Code(s): R31.0 - Gross hematuria Code(s): R31.9 - Hematuria, unspecified Status: Acute (3) Acute UTI: Code(s): N39.0 - Urinary tract infection, site not specified Status: Acute DS: Summary Hospital Course Hospital Course: 59-year-old male with a past medical history of intellectual disability, holoprosencephaly, ulcerative colitis, obesity, and recent hospitalization at our facility for sepsis who presented back from [facility] via EMS due to hematuria. I had admitted the patient at that time for his The patient was hospitalized from the through the at our facility. I had admitted the patient at that time for symptomatic anemia following his syncopal episode. During initial assessment at that time he had marked urinary retention. He had a catheter placed and was treated for UTI, COVID and sepsis. He was discharged [facility] to the [facility]. Two weeks ago his catheter was removed. The patient had been discharged on Augmentin. Evidently after finishing the Augmentin he did also receive a week's course of Bactrim which was completed about 10 days ago. And evidently then received a course of levofloxacin. Per [facility] staff they report patient had been having hematuria for 2 days. Patient was afebrile on arrival to the ER. The patient reports that he was brought in because the nursing staff noted that his abdomen was vague but he did not have any pain or discomfort. He states that he does not know if he was urinating more frequently than usual because he always urinates in his depends. He denies having any pain or complaints. He is alert oriented to person and the fact that he is in the hospital. Patient was managed for UTI , urine culture grew proteus mirabilis and patient complated 7 days of antibiotics. Urology was consulted for urinary retention and hematuria,s/p CBI and patient was started on discharged on Tamsulosin and on To, and follow up with urology outpatient for further eval. F/u [facility] PCP in 3- 5 days F/u [facility] urology as instructed Time Spent with Patient Time attestation: Total time spent providing and/or coordinating discharge services: DS: Data Data Completed and Pending Labs on day of discharge: Labs from last 24 hours 11/19/24 05:42 WBC 9.8 RBC 3.04 L Hgb 8.7 L Hct 27.6 L MCV 90.8 MCH 28.6 MCHC 31.5 L RDW 15.9 H Plt Count 418 H MPV 8.6 Immature Gran % (Auto) 0.7 H Neut % (Auto) 68.7 Lymph % (Auto) 21.4 [place] % (Auto) 3.3 Eos % (Auto) 5.4 H Baso % (Auto) 0.5 Lymph # (Auto) 2.10 [place] # (Auto) 0.3 Eos # (Auto) 0.5 H Baso # (Auto) 0.1 Abs Immat Gran (auto) 0.07 H Absolute Neuts (auto) 6.7 Absolute Nucleated RBC 0.000 Nucleated RBC % 0.0 Sodium 133 L Potassium 3.3 L Chloride 100 Carbon Dioxide 25 Anion Gap 8 BUN 10 Creatinine 0.72 Estim Creat Clear Calc 105 Estimated GFR > 60 Glucose 84 Calcium 7.9 L Magnesium 2.0 Total Bilirubin 0.7 AST 40 ALT 28 Alkaline Phosphatase 129 H Total Protein 6.0 L Albumin 2.7 L Discharge Plan Discharge Attending physician on discharge: Robert Mason Consulting providers: Gilberto Mahajan Discharging Clinician: Robert Mason Anticipated Discharge Date/Time: 11/19/24 11:33 Patient Disposition: NH Detention/Asst Living Activity: as tolerated Diet: as tolerated and regular Patient Instructions: Antibiotic Form Patient Language: Malawian Stand Alone Forms: General Discharge Information Follow-up/Referrals: Ari Rizzo [Other] (F/u with PCP in 3-5 days ) Spencer Jurado MD [Physician] - 1 Week (Needs void trial while on antibiotics followed by diagnostic cystoscopy to complete hematuria workup. Please call for appointment.) Discharge Medications: New tamsulosin 0.4 mg Capsule 0.4 mg PO QAM 14 Days Qty: 14 0RF Continued acetaminophen 650 mg tablet extended release 650 mg PO Q4H PRN (Reason: pain) pantoprazole [Protonix] 40 mg tablet,delayed release (DR/EC) 40 mg PO BID levofloxacin 500 mg tablet 500 mg PO DAILY Date of admission: 11/13/24 14:29 Primary Care Provider: Ari Rizzo Admitting Provider: Geovani Alegre Attending physician on admission: Robert Mason Condition: Stable
[2024-11-19 14:00] VITALS: BP 115/71; PULSE 97; RESP 20; TEMP 36.2; O2SAT 100
== END 2024-11-19 18:00 | DRG 689 ==
LOC: ANHED 14:33 → ANH3MEDSUR 18:56
PROVIDERS: Internal Medicine; Admitting Provider General Practice; Emergency Provider Emergency Medicine; Visit Provider Internal Medicine
DX: N39.0 Urinary tract infection, site not specified (principal); Q04.2 Holoprosencephaly; N17.9 Acute kidney failure, unspecified; E87.1 Hypo-osmolality and hyponatremia; K51.90 Ulcerative colitis, unspecified, without complications; R31.0 Gross hematuria; R33.9 Retention of urine, unspecified; D72.819 Decreased white blood cell count, unspecified; D64.9 Anemia, unspecified; K21.9 Gastro-esophageal reflux disease without esophagitis; K40.20 Bilateral inguinal hernia, without obstruction or gangrene, not specified as recurrent; F79 Unspecified intellectual disabilities; B96.4 Proteus (mirabilis) (morganii) as the cause of diseases classified elsewhere; E83.42 Hypomagnesemia
CPT/HCPCS: 36415; 36430; 80048; 80053; 81001; 82728; 83540; 83550; 83735; 84132; 85014; 85018; 85025; 85027; 86850; 86900; 86901; 86923; 87086; 87186; 96365; 96375; 97161; 99285; A9270; G0378; J0696; J2470; J3475; J3480; J7030; J7040; J7050; P9016